=== PATIENT | female | born 1995 | race Caucasian/White ===

== ENCOUNTER 2022-08-07 08:53 | Outpatient (CLI) | payer OTHER, SELFPAY ==
--- NOTE | 2022-08-07 08:15 | CRLHL7_ITS ---
For Patients: As a result of the Cures Act, medical imaging exams and procedure reports are released immediately into your electronic medical record. You may view this report before your referring provider. If you have questions, please contact your health care provider. INDICATION: First trimester scan, establish dates. COMPARISON: None. TECHNIQUE: Real-time varela-scale imaging of the pelvis was performed. FINDINGS: Sonographic imaging demonstrates a single living intrauterine gestation. The embryo demonstrates a regular cardiac rate measuring 179 beats per minute. The embryo`s crown-rump length measurement of 2.1 cm corresponds to a gestational age of 8 weeks 5 days with a sonographic due date of 03/14/2023. There is a normal-appearing yolk sac. There are no gross abnormalities noted within the embryo at this early state of development. The gestational sac has a normal appearance. There is a 3.9 x 0.5 x 1.5 cm perigestational hemorrhage. The amount of fluid within the sac appears appropriate for gestational age. The cervix is closed. The myometrium appears normal. The ovaries are of normal size. There are no suspicious fluid collections noted in the cul-de-sac. IMPRESSION: Single living intrauterine with sonographic gestational age 8 weeks 5 days and sonographic due date 03/14/2023. Subchorionic hemorrhage measuring 3.9 x 0.5 x 1.5 cm. Dictated by Tex Mathias MD @ 08/07/2022 12:51:17 PM (Electronically Signed)
== END 2022-08-07 08:54 | disposition home or self-care (01) ==
LOC: US 08:54
PROVIDERS: Visit Provider Registered Nurse
DX: Z34.91 Encounter for supervision of normal pregnancy, unspecified, first trimester (principal); O20.9 Hemorrhage in early pregnancy, unspecified; Z3A.08 8 weeks gestation of pregnancy
CPT/HCPCS: 76817

== ENCOUNTER 2022-08-07 10:31 | Outpatient (CLI) | payer OTHER, SELFPAY ==
--- OUTSIDE RECORDS SUMMARY | 2022-08-07 10:36 | XMS_ITS | Encounter Summary ---
:1995 Author Organization [facility] Address [address] [place] [address] Care Team Providers Name Role Phone Unassigned, Pcp Primary Care Provider Unavailable Encounter Details Date Type Department Care Team Description 09/15/2021 Admin Visit Department of Family Wang Eng P.A.-C. Medicine, [facility], [address] [place] [address] [place] [address] [phone] Social History Tobacco Use Types Packs/Day Years Used Date Smoking Tobacco: Never Smokeless Tobacco: Never Alcohol Use Standard Drinks/Week Comments No 0 (1 standard drink = 0.6 oz pure alcoho l) Sex Assigned at Date Recorded Female 07/07/2018 9:07 AM CDT documented as of this encounter Plan of Treatment Not on filedocumented as of this encounter Visit Diagnoses Not on filedocumented in this encounter Additional Health Concerns Infection Onset Date Last Indicated Resolved Time COVID19 Pending 09/15/2021 09/15/2021 09/16/2021 5:27 PM 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
--- OUTSIDE RECORDS SUMMARY | 2022-08-07 10:36 | XMS_ITS | Encounter Summary ---
:1995 Author Organization [facility] Address [address] [place] [address] Care Team Providers Name Role Phone Unassigned, Pcp Primary Care Provider Unavailable Reason for Visit Reason Onset Date Comments Outpatient COVID-19 Testing 07/12/2020 Encounter Details Date Type Department Care Team Description 07/12/2020 External Outreach Department of [facility] Oanh Moreno Infection Upper Medicine, [place] T, P.A.-CDennise Respiratory (Primary Clinic, in [place], [address] [place] [address] Dx) [place], [place] [address] [address] [place], [place] [phone] (Work) [phone] Social History Tobacco Use Types Packs/Day Years Used Date Smoking Tobacco: Never Smokeless Tobacco: Never Alcohol Use Standard Drinks/Week Comments No 0 (1 standard drink = 0.6 oz pure alcoho l) Sex Assigned at Date Recorded Female 07/07/2018 9:07 AM CDT documented as of this encounter Progress Notes Caitlyn Diane, L.P.N. - 07/12/2020 10:10 AM CDT Encounter created for the drive-through COVID-19 testing. documented in this encounter Plan of Treatment Not on filedocumented as of this encounter Procedures Procedure Name Priority Date/Time Associated Diagnosis Comme nts SARS CORONAVIRUS-2 Routine 07/12/2020 3:11 PM Infection Upper Results for this RNA, V CDT Respiratory procedure are i n the results section. documented in this encounter Results SARS Coronavirus-2 RNA, V Symptomatic (07/12/2020 3:11 PM CDT) [facility] Method Time Signature SARS-CoV-2 Swab, 07/12/2020 ECLR Specimen Nasopharynx 10:26 PM Source CDT SARS CoV-2 Undetected Undetected 07/12/2020 ECLR RNA, TMA 10:26 PM CDT Comment: SARS-CoV-2 RNA absent. This result does not rule out COVID-19 in the patient, as the sensitivity of the test depends o n the timing of the specimen collection and the quality of the specim en. Result should be correlated with patient's history and clinical presentat ion. ----ADDITIONAL INFORMATION---- This test is performed using the Aptima SARS-CoV-2 assay ([employer] which has received Emergency Use Authori zation (EUA) by the U.S. Food and Drug Administration. Fact sheets for this Emergency Use Autho rization (EUA) assay can be found at the following links: For Healthcare Providers: https://www.fd a.gov/media/538860/download For Patients: https://www.fda.gov/media/ 501512/download Specimen Anatomical Collection Method Collection Time Receive d Time (Source) Location / / Volume Laterality Varies 07/12/2020 3:11 PM 0 3:11 (Nasopharynx) CDT PM CDT Lc Moreno P.A.-C. LAB MICROBIOLOGY - GENERAL O JENNIFER Performing Organization Address City/State/ZIP Code Phon e Number [facility]- [address] [place] [phone] [facility] [place] [address] System in [address] documented in this encounter Visit Diagnoses Diagnosis Infection Upper Respiratory - Primary documented in this encounter Additional Health Concerns Infection Onset Date Last Indicated Resolved Time COVID19 Pending 07/12/2020 07/12/2020 07/12/2020 10:28 PM CDT documented as of this encounter Care Teams Nutrition Services Assistant Relationship Specialty Start Date End Date Unassigned, Pcp PCP - General Family Medicine 02/24/18 documented as of this encounter
--- OUTSIDE RECORDS SUMMARY | 2022-08-07 10:36 | XMS_ITS | Encounter Summary ---
:1995 Author Organization [facility] Address [address] [place] [address] Care Team Providers Name Role Phone Unassigned, Pcp Primary Care Provider Unavailable Reason for Visit Reason Onset Date Comments Testing For Upper Respiratory Virus Symptoms 10/01/2021 Encounter Details Date Type Department Care Team Description 10/01/2021 External Outreach Department of [facility] Oanh Moreno Contact With And Medicine, Nerinx Alma Zambrano (Suspected) Exposure Clinic, in [address] To COVID-19 (Primary [place], [place] Dx) [address] [facility] [address] [place], [place] [phone] [phone] (Work) [phone] Social History Tobacco Use Types Packs/Day Years Used Date Smoking Tobacco: Never Smokeless Tobacco: Never Alcohol Use Standard Drinks/Week Comments No 0 (1 standard drink = 0.6 oz pure alcoho l) Sex Assigned at Date Recorded Female 07/07/2018 9:07 AM CDT documented as of this encounter Progress Notes Xavier Pop RDenniseN. - 10/01/2021 10:47 AM CST Encounter created for symptomatic infectious disease screening with possible COVID, Influenza, RSV, and/or Group A Strep testing. RONMENTAL MARKETING REPRESENTATIVE documented in this encounter Plan of Treatment Not on filedocumented as of this encounter Procedures Procedure Name Priority Date/Time Associated Diagnosis Comme nts SARS CORONAVIRUS-2 Routine 10/02/2021 12:56 PM Contact With An d Results for this RNA, V ENVIRONMENTAL MARKETING REPRESENTATIVE (Suspected) Exposure procedu re are in To COVID-19 the results section. documented in this encounter Results SARS Coronavirus-2 RNA, V Symptomatic (10/02/2021 12:56 PM ENVIRONMENTAL MARKETING REPRESENTATIVE) [facility] Method Time Signature SARS-CoV-2 Swab, 10/03/2021 ECLR Specimen Nasopharynx 2:35 PM ENVIRONMENTAL MARKETING REPRESENTATIVE Source SARS CoV-2 Undetected Undetected 10/03/2021 ECLR RNA, TMA 2:35 PM ENVIRONMENTAL MARKETING REPRESENTATIVE Comment: SARS-CoV-2 RNA absent. This result does not rule out COVID-19 in the patient, as the sensitivity of the test depends o n the timing of the specimen collection and the quality of the specim en. Result should be correlated with patient's history and clinical presentat ion. ----ADDITIONAL INFORMATION---- This molecular amplification test was pe rformed using the Aptima SARS-CoV-2 assay ([employer] on the [employer] tem under emergency use authorization (EUA) by the U.S. Food and Drug Administ ration. Fact sheets for this EUA assay can be fo und at the following links: For Healthcare Providers: https://www.fd a.gov/media/087636/download For Patients: https://www.fda.gov/media/ 370445/download Specimen Anatomical Collection Method Collection Time Receive d Time (Source) Location / / Volume Laterality Varies 10/02/2021 12:56 10/02/2021 9:52 (Nasopharynx) PM ENVIRONMENTAL MARKETING REPRESENTATIVE PM ENVIRONMENTAL MARKETING REPRESENTATIVE Lc Moreno P.A.-C. LAB MICROBIOLOGY - GENERAL O RDENRIKEBLES Performing Organization Address City/State/ZIP Code Phon e Number [facility]- [address] [place] [address] [phone] [facility] [place] [address] System in [address] documented in this encounter Visit Diagnoses Diagnosis Contact With And (Suspected) Exposure To COVID-19 - Primary documented in this encounter Additional Health Concerns Infection Onset Date Last Indicated Resolved Time COVID19 Pending 10/01/2021 10/02/2021 10/03/2021 2:35 PM ENVIRONMENTAL MARKETING REPRESENTATIVE documented as of this encounter Care Teams Grain Sampler Relationship Specialty Start Date End Date Unassigned, Pcp PCP - General Family Medicine 02/24/18 documented as of this encounter
--- OUTSIDE RECORDS SUMMARY | 2022-08-07 10:36 | XMS_ITS | Encounter Summary ---
:1995 Author Organization [facility] Address [address] [place] [address] Care Team Providers Name Role Phone Unassigned, Pcp Primary Care Provider Unavailable Encounter Details Date Type Department Care Team Description 10/02/2021 Admin Visit Department of Family Lc Moreno, Medicine, [facility] in [place], [facility] [address] [facility] [address] [place] [address] [place] [address] [phone] Social History Tobacco Use Types Packs/Day Years [...] COVID19 Pending 10/01/2021 10/02/2021 10/03/2021 2:35 PM DENTURE CONTOUR WIRE SPECIALIST documented as of this encounter Care Teams Tooth Cutter Relationship Specialty Start Date End Date Unassigned, Pcp PCP - General Family Medicine 02/24/18 documented as of this encounter
--- OUTSIDE RECORDS SUMMARY | 2022-08-07 10:36 | XMS_ITS | Encounter Summary ---
:1995 Author Organization [facility] Address [address] [place] [address] Care Team Providers Name Role Phone Unassigned, Pcp Primary Care Provider Unavailable Reason for Visit Reason Onset Date Comments Outpatient COVID-19 Testing 07/12/2020 Encounter Details Date Type Department Care Team Description 07/12/2020 External Outreach Department of [facility] Oanh Moreno Infection Upper Medicine, [place] T, P.A.-CDennise Respiratory (Primary Clinic, in [place], [address] [place] [address] Dx) [place], [place] [address] [address] [place], [place] [phone] (Work) [phone] Social History Tobacco Use Types Packs/Day Years Used Date Smoking Tobacco: Never Smokeless Tobacco: Never Alcohol Use Standard Drinks/Week Comments No 0 (1 standard drink = 0.6 oz pure alcoho l) Sex Assigned at Date Recorded Female 07/07/2018 9:07 AM CDT documented as of this encounter Progress Notes Cristina Adler, L.P.N. - 07/12/2020 10:01 AM CDT Encounter created for the drive-through COVID-19 testing. documented in this encounter Plan of Treatment Not on filedocumented as of this encounter Visit Diagnoses Diagnosis Infection Upper Respiratory - Primary documented in this encounter Additional Health Concerns Infection Onset Date Last Indicated Resolved Time COVID19 Pending 07/12/2020 07/12/2020 07/12/2020 10:28 PM CDT documented as of this encounter Care Teams Gang Investigator Relationship Specialty Start Date End Date Unassigned, Pcp PCP - General Family Medicine 02/24/18 documented as of this encounter
--- OUTSIDE RECORDS SUMMARY | 2022-08-07 10:36 | XMS_ITS | Encounter Summary ---
:1995 Author Organization [facility] Address [address] [place] [address] Care Team Providers Name Role Phone Unassigned, Pcp Primary Care Provider Unavailable Encounter Details Date Type Department Care Team Description 01/03/2021 Orders Only [facility] Sa marisa Tucker M.D. [address] [place], [place] [phone] (Wo rk) Social History Tobacco Use Types Packs/Day Years [...] Diagnoses Not on filedocumented in this encounter Care Teams Bondactor Machine Operator Relationship Specialty Start Date End Date Unassigned, Pcp PCP - General Family Medicine 02/24/18 documented as of this encounter
--- OUTSIDE RECORDS SUMMARY | 2022-08-07 10:36 | XMS_ITS | Clinical Summary ---
:1995 Author Organization [facility] Address [address] [place] [address] Care Team Providers Name Role Phone Unassigned, Pcp Primary Care Provider Unavailable Source Comments Patient records contain information from all sites at [facility]. For routine questions regarding patient records, call [phone] during business hours, M-F 8:00 AM - 5:00 PM Central Time. Record requests for emergency care only can be directed to [phone] at any time.[facility] Allergies Active Allergy Reactions Severity Noted Date Comments Banana GI intolerance Medium 02/16/2018 Raw banana. S evere stomach pain Medications Medication Sig Dispensed Refills Start Date End Date Status Take 1 tablet by 0 Act clifton tjwbqha-jaywffku-sbgz mouth daily. fumarate-FA (for_VINATE M) 27-1 mg per tablet levonorgestrel-ethinyl Take 1 tablet by 84 tablet 4 08/26/2018 Active estrad (NORDETTE) mouth daily. 0.15-0.03 mg per tablet azithromycin Take 2 tabs (500 6 tablet 0 06/26/2019 Active (ZITHROMAX) 250 mg mg) by mouth tablet today, then 1 tab (250 mg) daily for 4 days. Active Problems Patient Care Coordination Note Formatting of this note might be differe nt from the original. Kang breastfeed Problem Noted Date Pain Epigastric Resolved Problems Problem Noted Date Resolved Date 41 Weeks Gestation 07/14/2018 07/21/2018 Body Mass Index 40.0 To 44.9 Adult 06/30/201808/26 Elevated Blood Pressure Without Hypertension 06/24/2018 07/13/2018 Encounter For Supervision Of Normal First 12/25/19 18 07/21/2018 Unspecified Trimester Immunizations Name Administration Dates Next Due 4vHPV (discontinued) 05/27/2011 DTaP (Infanrix, [employer]) 01/31/1999, 06/30/1996, 07/01/1994 , 04/29/1994, 03/03/1994 HPV, Unspecified 05/27/2011 HepB, Unspecified 11/10/1999, 03/04/1999, 01/31/1999 Hib, Unspecified 07/01/1994, 04/29/1994, 03/03/1994 MMR 07/18/2018 (Deferred: Patient Refused), 01/31/1999, 04/26/1995 Polio, Unspecified 01/31/1999, 06/30/1996, 04/29/1994, 02/03 Tdap 04/15/2018, 06/11/2006 Family History Medical History Relation Name Comments Cancer Maternal Grandfather Heart attack Maternal Grandfather Hypertension Maternal Grandfather Cervical cancer Mother Relation Name Status Comments Maternal Grandfather Alive Mother Alive Social History Tobacco Use Types Packs/Day Years Used Date Smoking Tobacco: Never Smokeless Tobacco: Never Alcohol Use Standard Drinks/Week Comments No 0 (1 standard drink = 0.6 oz pure alcoho l) Sex Assigned at Date Recorded Female 07/07/2018 9:07 AM CDT Last Filed Vital Signs Vital Sign Reading Time Taken Comments Blood Pressure 126/81 06/26/2019 2:31 PM CDT Pulse 77 06/26/2019 2:31 PM CDT Temperature 37.4 ??C (99.3 ??F) 06/26/2019 2:31 PM CDT Respiratory Rate 16 07/18/2018 9:49 AM CDT Oxygen Saturation 98% 06/26/2019 2:31 PM CDT Inhaled Oxygen Concentration - - Weight 95 kg (209 lb 7 oz) 06/26/2019 2:31 PM CDT Height 163 cm (5' 4.17) 11/13/2016 11:23 AM 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 Body Mass Index 35.76 11/13/2016 11:23 AM 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 Plan of Treatment Health Maintenance Due Date Last Done Comments Hepatitis C Screening 1995 COVID-19 Vaccine (#1) 06/26/1994 Cervical Cancer Screening 11/26/2020 11/26/2017 Depression Screening 10/04/2021 (Annual PHQ-2) Influenza Vaccine (#1) 2022 DTaP,Tdap,and Td Vaccines 04/15/2028 04/15/2018, 06/11/2006 , (9 - Td or Tdap) 05/19/2006, Additional history exists Hepatitis B Vaccines Completed 11/10/1999, 03/04/1999, 01/31/1999 HIV Screening Completed 11/26/2017 Pneumococcal vaccine (0-64 Aged Out No lo nger eligible years) based on patient 's age to complete this topic Insurance Payer Benefit Plan Subscriber ID Effective Phone Address Typ e / Group Dates [facility] [id number] 2017-Prese [phone] [id number] [place] [address] [facility] [id number] 2020-Prese [phone] [id number] [place] [address] Advance Directives For more information, please contact: [phone] Latest Code Status on File Code Status Date Activated Date Inactivated Comments Full Code 07/15/2018 8:48 PM 07/18/2018 12:00 PM Question Answer Comments Full Code: Discussed Code Status History Code Status Date Activated Date Inactivated Comments Full Code 07/15/2018 5:59 PM 07/15/2018 8:48 PM Question Answer Comments Full Code: Discussed Full Code 07/14/2018 7:50 AM 07/15/2018 5:59 PM Question Answer Comments Full Code: Discussed Care Teams Strategic Planning Consultant Relationship Specialty Start Date End Date Unassigned, Pcp PCP - General Family Medicine 02/24/18
--- OUTSIDE RECORDS SUMMARY | 2022-08-07 10:37 | XMS_ITS | Encounter Summary ---
:1995 Author Organization [facility] Address [address] [place] [address] Care Team Providers Name Role Phone Unassigned, Pcp Primary Care Provider Unavailable Encounter Details Date Type Department Care Team Description 05/04/2018 Clinical Communication Department of Devin Hall, Obstetrics and [facility] Gynecology in [address] [address] Social History Tobacco Use Types Packs/Day Years [...] on filedocumented in this encounter Care Teams Propulsion Machinery Service Engineer Relationship Specialty Start Date End Date Unassigned, Pcp PCP - General Family Medicine 02/24/18 documented as of this encounter
--- OUTSIDE RECORDS SUMMARY | 2022-08-07 10:37 | XMS_ITS | Encounter Summary ---
:1995 Author Organization [facility] Address [address] [place] [address] Care Team Providers Name Role Phone Unassigned, Pcp Primary Care Provider Unavailable Reason for Visit Reason Comments Routine Visit Outpatient (Routine) - Closed Specialty Diagnoses / Procedures Referred By Contact Refer red To Contact Obstetrics and Jennifer Sargent, MARIA LUISA, [facility] C.N.P. [address] [place] [address] Referral ID Status Reason Start Date Expiration Date Visits Requ ested Visits Authorized [id number] Closed 05/13/2018 05/13/2019 1 1 Encounter Details Date Type Department Care Team Description 07/01/2018 Routine Department of Jennifer Sargent Examinat ion Obstetrics and DETASSELING CREW SUPERVISOR, C.N.P. Normal First Gynecology in [facility] [address] [place], [place] Trimester (Primary [address] [address] Dx) [place], [place] [phone] [phone] (Work) [phone] Social History Tobacco Use Types Packs/Day Years Used Date Smoking Tobacco: Never Smokeless Tobacco: Never Alcohol Use Standard Drinks/Week Comments No 0 (1 standard drink = 0.6 oz pure alcoho l) Sex Assigned at Date Recorded Female 07/07/2018 9:07 AM CDT documented as of this encounter Last Filed Vital Signs Vital Sign Reading Time Taken Comments Blood Pressure 130/80 07/01/2018 9:02 AM CDT Pulse - - Temperature - - Respiratory Rate - - Oxygen Saturation - - Inhaled Oxygen Concentration - - Weight 112 kg (247 lb 2.2 oz) 07/01/2018 9:02 AM CDT Height - - Body Mass Index 42.19 11/13/2016 11:23 AM APPLICATION SUPPORT CONSULTANT documented in this encounter Progress Notes Jennifer Sargent APRN, C.N.P. - 07/01/2018 9:15 AM CDT Patient is feeling well. No concerns today. movement continues to be adequate. We briefly discussed induction, nothing is scheduled yet. documented in this encounter Plan of Treatment Not on filedocumented as of this encounter Visit Diagnoses Diagnosis Examination Normal First Pregna ncy Third Trimester (HCC) - Primary documented in this encounter Care Teams Registry Nurse Relationship Specialty Start Date End Date Unassigned, Pcp PCP - General Family Medicine 02/24/18 documented as of this encounter
--- OUTSIDE RECORDS SUMMARY | 2022-08-07 10:37 | XMS_ITS | Encounter Summary ---
:1995 Author Organization [facility] Address [address] [place] [address] Care Team Providers Name Role Phone Unassigned, Pcp Primary Care Provider Unavailable Encounter Details Date Type Department Care Team Description 06/26/2019 Hospital Encounter Department of Radiology Herbert Carranza, Cough in [place], [place] P.A.-C. [address] [facility] [address] [place] [address] [place], [place] [phone] (Wo rk) Social History Tobacco Use Types Packs/Day Years Used Date Smoking Tobacco: Never Smokeless Tobacco: Never Alcohol Use Standard Drinks/Week Comments No 0 (1 standard drink = 0.6 oz pure alcoho l) Sex Assigned at Date Recorded Female 07/07/2018 9:07 AM CDT documented as of this encounter Medications at Time of Discharge Medication Sig Dispensed Refills Start Date End Date azithromycin (ZITHROMAX) Take 2 tabs (500 6 tablet 0 06/26 250 mg tablet mg) by mouth today, then 1 tab (250 mg) daily for 4 days. levonorgestrel-ethinyl Take 1 tablet by 84 tablet 4 018 estrad (NORDETTE) mouth daily. 0.15-0.03 mg per tablet Take 1 tablet by 0 egkiclu-prdvimee-lbek mouth daily. fumarate-FA (for_VINATE M) 27-1 mg per tablet benzonatate (TESSALON Take 1 capsule (100 30 capsule 0 06/2607/06/2019 PERLES) 100 mg capsule mg total) by mouth 3 (three) times a day as needed for cough for up to 10 days. documented as of this encounter Plan of Treatment Not on filedocumented as of this encounter Procedures Procedure Name Priority Date/Time Associated Comments Diagnosis DX CHEST AP OR PA RAD - Routine 06/26/2019 3:08 Cough Result s for this AND LATERAL 2 (most inpatients PM CDT procedure are in VIEWS and all the results outpatients) section. documented in this encounter Results DX Chest AP or PA and Lateral 2 Views (06/26/2019 3:08 PM CDT) Anatomical Region Laterality Modality Chest, Thoracic RST LOS, Thoracic ARZ LOS, Thoracic N/A Digital Radiography FLA LOS Specimen (Source) Anatomical Collection Method Collection Time Re ceived Time Location / / Volume Laterality 06/26/2019 3:53 PM CDT Impressions 06/26/2019 3:54 PM CDT No focal pneumonia. Narrative 06/26/2019 3:54 PM CDT EXAM: DX CHEST AP OR PA AND LATERAL 2 VIEWS COMPARISON: 01/25/2021 FINDINGS: Cardiomediastinal silhouette a nd pulmonary vasculature are within normal limits. No acute consolidation, p leural effusion, or pneumothorax. No acute abnormality in the bones or upper abdomen. Procedure Note Jameson Morales M.D. - 06/26/2019Formattin g of this note might be different from the original. EXAM: DX CHEST AP OR PA AND LATERAL 2 EWS COMPARISON: 01/25/2021 FINDINGS: Cardiomediastinal silhouette a nd pulmonary vasculature are within normal limits. No acute consolidation, p leural effusion, or pneumothorax. No acute abnormality in the bones or upper abdomen. IMPRESSION: No focal pneumonia. [facility] documented in this encounter Visit Diagnoses Diagnosis Cough Unspecified Type documented in this encounter Care Teams Claims Adjustor Relationship Specialty Start Date End Date Unassigned, Pcp PCP - General Family Medicine 02/24/18 documented as of this encounter
--- OUTSIDE RECORDS SUMMARY | 2022-08-07 10:37 | XMS_ITS | Encounter Summary ---
:1995 Author Organization [facility] Address [address] [place] [address] Care Team Providers Name Role Phone Unassigned, Pcp Primary Care Provider Unavailable Reason for Visit Reason Comments Scheduled Induction Auth/Cert Specialty Diagnoses / Procedures Referred By Contact Refer red To Contact Diagnoses 41 Weeks Gestation (HCC) Procedures NA Referral ID Status Reason Start Date Expiration Date Visits Requ ested Visits Authorized [id number] 1 1 Encounter Details Date Type Department Care Team Description 07/15/2018 Surgery [facility] MAIN OR Jonas Buck M.D. SECTION [address] [facility] [address], [place] [phone] [place] [address] (Wo rk) Social History Tobacco Use Types Packs/Day Years Used Date Smoking Tobacco: Never Smokeless Tobacco: Never Alcohol Use Standard Drinks/Week Comments No 0 (1 standard drink = 0.6 oz pure alcoho l) Sex Assigned at Date Recorded Female 07/07/2018 9:07 AM CDT documented as of this encounter Last Filed Vital Signs Vital Sign Reading Time Taken Comments Blood Pressure 128/79 07/15/2018 6:00 PM CDT Pulse 110 07/15/2018 6:03 PM CDT Temperature 37.4 ??C (99.3 ??F) 07/15/2018 2:52 PM CDT Respiratory Rate 16 07/15/2018 2:52 PM CDT Oxygen Saturation 99% 07/15/2018 6:03 PM CDT Inhaled Oxygen Concentration - - Weight - - Height - - Body Mass Index - - documented in this encounter Discharge Summaries Jonas Buck M.D. - 07/18/2018 7:03 AM CDT DISCHARGE SUMMARY BRIEF OVERVIEW Discharge Provider: Damaris Houston APRN, CNM Primary Care Provider at Discharge: Primary Care Providers: Unassigned, Pcp (General) No address on file Primary Care Provider Phone Number: None Primary Care Provider Fax Number: None Other Providers: None Admission Date: 07/14/2018 Discharge Date: 07/18/2018 PRINCIPAL DIAGNOSIS 41 Weeks Gestation Failure to progress with deep pelvic transverse arrest. SECONDARY DIAGNOSES Principal Problem: 41 Weeks Gestation Resolved Problems: * No resolved hospital problems. * Operative Procedures: Scheduled (Daniel), Completed (Comp) or Canceled (Can) Case IDs Date Procedure Surgeon Location Status [id number] 07/15/18 SECTION Jonas Buck M.D. [facility] OR Jennifer Review the Delivery Report for details. GA: 41w1d GP: Risk Factors: Other Obstetric Procedures this : None Labor Complications: Failure to Progress in First Stage Delivery Details: 07/15/2018 6:40 PM with Apgars of 9 and 9 . Delivery Type: , Low Transverse Lacerations: Yocasta Lewis [[id number]] Delivery (Maternal) [place] Weight: 3.67 kg Feeding Method: breast Rh Immune Globulin Given: not applicable Rubella Vaccine Given: yes TEST RESULTS PENDING AT DISCHARGE DETAILS OF HOSPITAL STAY REASON FOR ADMISSION 41 weeks gestation/postdates HOSPITAL COURSE No notes on file Primary low segment transverse delivery CONDITION AT DISCHARGE stable DISCHARGE DISPOSITION Home/Self Care OUTPATIENT FOLLOW-UP Future Appointments Date Time Provider Department Center 07/25/2018 1:00 PM OBG RN NURSE 01 [facility] 08/26/2018 10:00 AM Jennifer Sargent APRN, C.N.P. [facility] Problem List * (Principal)41 Weeks Gestation Encounter For Supervision Of Normal First Unspecified Trimester Pain Epigastric Complication Obesity Body Mass Index 30 To 40 Initial visit bmi 38 Discharge instructions were provided to the patient and caregivers. Return to clinic in 1 week for postop follow-up and incision check. Jonas Buck M.D. documented in this encounter Discharge Instructions Discharge InstructionsPortia Mullins R.N. - 07/18/2018 8:46 AM CDT Discharge education completed. Education materials provided and reviewed: ??? Feeding your baby the first year ([id number]) ??? Caring for yourself after Giving ([id number]) ??? Caring for your ([id number]) ??? Keeping your safe ([id number]) ??? Beyond classes/ services ([id number]) ??? Shaken Baby Syndrome ??? Patient online services ([id number]) ??? Period of purple crying video ??? Oximetry screening/hearing screening/ screening ([id number]) ??? Carseat safety ([id number]) ??? Safe crib ([id number]) ??? Community resources/phone numbers ([id number]) ??? Circumcision pamphlet if applicable ([id number]) ??? Baby's Second Night ([id number]) ??? Managing your pain ([id number]) documented in this encounter Medications at Time of Discharge Medication Sig Dispensed Refills Start Date End Date Take 1 tablet by 0 ztlkoyo-uwmpmolr-djfu mouth daily. fumarate-FA (for_VINATE M) 27-1 mg per tablet ibuprofen (ADVIL,MOTRIN) Take 1 tablet (600 30 tablet 1 07/26/2018 600 mg tablet mg total) by mouth every 6 (six) hours for 30 doses. MMR: measles, mumps and Inject 0.5 mL under 0.5 mL 0 07/18/2018 rubella, PF, the skin once for 1 1,000-12,500 TCID50/0.5 dose. mL vaccine raNITIdine (ZANTAC) 150 Take 1 tablet (150 180 tablet 3 10/201705/04/2019 mg tablet mg total) by mouth 2 (two) times a day. documented as of this encounter Progress Notes Jonas Buck M.D. - 07/18/2018 6:59 AM CDT SUBJECTIVE Brie Lewis is currently 3 Days Post-Op for section. She was admitted to the hospital for induction of labor for: post dates.. Events over the past 24 hours - Pain is well controlled - Tolerating PO: yes - Flatus: yes - Nausea: no - Voiding: yes OBJECTIVE VITAL SIGNS Vitals: 07/17/18 0330 07/17/18 0910 07/17/18 0915 07/17/18 2343 BP: 118/76 118/76 (!) 111/53 Temp: 37 ??C 36.9 ??C 37.1 ??C Pulse: Heart Rate: 98 98 96 Resp: 20 20 SpO2: Temp (24hrs), Av ??C, Min:36.9 ??C, Max:37.1 ??C Weight change: I/O 07/16 0701 - 07/17 0700 07/17 07 - 07/18 0700 Urine 1150 Total Output 1150 Net -1150 Unmeasured Urine Occurrence 2 x PHYSICAL EXAM Constinutional: no complaints Respiratory: normal expansion, clear to auscultation Cardiovascular: regular rate and rhythm Abdomen: soft, nontender Fundus: 2 cm below umbilicus Incision: dressing clean, dry, intact Occurences STATUS sex: Information for the patient's : Yocasta Lewis [[id number]] female Infant name: Information for the patient's : Yocasta Lewis [[id number]] Yocasta Lewis room: Information for the patient's : Yocasta Lewis [[id number]] NRY 3310/3310-A DIAGNOSTICS Lab results last 24 hours: Recent Results (from the past 24 hour(s)) CBC with Differential, Blood Collection Time: 07/17/18 8:18 AM Result Value Hemoglobin 8.3 (L) Hematocrit 25.4 (L) Erythrocytes 2.71 (L) MCV 93.7 RBC Distrib Width 13.6 Platelet Count 213 Leukocytes 11.7 (H) Neutrophils 9.18 (H) Lymphocytes 1.61 Monocytes 0.82 (H) Eosinophils 0.03 Basophils 0.03 No results found for this visit on 07/14/18 (from the past 72 hour(s)). Blood Type: Lab Results Component Value Date ABO A 07/14/2018 RHTYPE POS 07/14/2018 Antibody Screen: Lab Results Component Value Date ABSCREEN NEG 07/14/2018 RhoGAM: given not applicable ASSESSMENT / PLAN Condition: doing well without problems Discharge home today. Patient education done. Return to office in 1 week for postop/incision check. Problem List * (Principal)41 Weeks Gestation Encounter For Supervision Of Normal First Unspecified Trimester Pain Epigastric Complication Obesity Body Mass Index 30 To 40 Initial visit bmi 38 Jonas Buck M.D. Jonas Buck M.D. - 07/17/2018 7:56 AM CDT SUBJECTIVE Brie Lewis is currently 2 Days Post-Op for section. She was admitted to the hospital for induction of labor for: post dates/41+weeks. Events over the past 24 hours - Pain is well controlled - Tolerating PO: yes - Flatus: ?possible - Nausea: no - Vomiting: no OBJECTIVE VITAL SIGNS Vitals: 07/16/18 1725 07/16/18 2005 07/16/18 2228 07/17/18 0330 BP: 130/84 126/75 Temp: 37 ??C 37.4 ??C 37 ??C 37 ??C Pulse: Heart Rate: 98 107 Resp: 16 SpO2: Temp (24hrs), Av.1 ??C, Min:37 ??C, Max:37.4 ??C Weight change: I/O 07/15 701 - 07/16 0707/16 - 07/17 0707/17 - 07/18 07 P.O. 90 Maintenance IV 1500 Continuous Medications 200 Total Intake 1790 Urine 900 1150 Blood 1539 Total Output 2439 1150 Net -649 -1150 PHYSICAL EXAM Constinutional: no complaints Respiratory: normal expansion, clear to auscultation Cardiovascular: regular rate and rhythm Abdomen: soft, nontender and Bowel sounds present x4 quadrants Incision: dressing clean, dry, intact Extremities: 1+ edema Occurences STATUS Infant sex: Information for the patient's : Yocasta Lewis [[id number]] female Infant name: Information for the patient's : Yocasta Lewis [[id number]] Yocasta Lewis Infant room: Information for the patient's : Yocasta Lewis [[id number]] NRY 3310/3310-A DIAGNOSTICS Lab results last 24 hours: No results found for this or any previous visit (from the past 24 hour(s)). No results found for this visit on 07/14/18 (from the past 72 hour(s)). Blood Type: Lab Results Component Value Date ABO A 07/14/2018 RHTYPE POS 07/14/2018 Antibody Screen: Lab Results Component Value Date ABSCREEN NEG 07/14/2018 RhoGAM: given not applicable ASSESSMENT / PLAN Condition: doing well without problems, advance diet as tolerated, increase ambulation, continue post operative/ care. Continue with /postoperative care. Recheck CBC today-- Problem List * (Principal)41 Weeks Gestation Encounter For Supervision Of Normal First Unspecified Trimester Pain Epigastric Complication Obesity Body Mass Index 30 To 40 Initial visit bmi 38 Jonas Buck M.D. Eddie Rodriguez APRN, ANGELIQUE, D.N.P. - 07/16/2018 1:05 PM CDT Post Anesthesia Assessment Note Patient: Brie Lewis General Info Post-procedure day: 1 Follow-up type: OB OB Assessment day: 1 Vital signs: vitals reviewed Ambulation: has ambulated Urinary retention: No Patient received a neuraxial anesthetic: Yes OB Complications New or progressive sensory deficit since admission: No New or progressing motor deficit since admission: No Headache: No Clinical signs or symptoms of neuraxial infection: none apparent Clinical signs or symptoms of neuraxial hematoma: none apparent Clinical signs or symptoms of DIRECTOR OF STRATEGIC COMMUNICATIONS toxicity (during this admission): none Does patient display any postoperative anesthesia complication warranting further documentation: No Jonas Buck M.D. - 07/16/2018 8:16 AM CDT SUBJECTIVE Brie Lewis is currently 1 Day Post-Op for section. She was admitted to the hospital for induction of labor for: post dates/41 weeks.. Events over the past 24 hours - Pain is well controlled - Tolerating PO: yes - Flatus: yes - Vomiting: no OBJECTIVE VITAL SIGNS Vitals: 07/16/18 0000 07/16/18 0230 07/16/18 0454 07/16/18 0500 BP: 119/78 108/67 118/66 Temp: 37.2 ??C 37.1 ??C 37.3 ??C Pulse: Heart Rate: 88 81 87 Resp: 16 16 16 SpO2: Temp (24hrs), Av.3 ??C, Min:36.7 ??C, Max:37.8 ??C Weight change: I/O 07/14 701 - 07/15 0700 07/15 07 - 07/16 0700 07/16 07 - 07/17 0700 P.O. 90 Maintenance IV 1500 Continuous Medications 200 Total Intake 1790 Urine 900 Blood 1539 Total Output 2439 Net -649 PHYSICAL EXAM Constinutional: no complaints Respiratory: normal expansion, clear to auscultation Cardiovascular: regular rate and rhythm Abdomen: soft, nontender Fundus: 2 cm below umbilicus Incision: dressing clean, dry, intact Occurences INFANT STATUS sex: Information for the patient's : Yocasta Lewis [[id number]] female name: Information for the patient's : Yocasta Lewis [[id number]] Yocasta Lewis room: Information for the patient's : Yocasta Lewis [[id number]] NRY 3310/3310-A DIAGNOSTICS Lab results last 24 hours: Recent Results (from the past 24 hour(s)) CBC with Differential Collection Time: 07/16/18 7:04 AM Result Value Hemoglobin 9.0 (L) Hematocrit 27.9 (L) Erythrocytes 3.05 (L) MCV 91.5 RBC Distrib Width 13.2 Platelet Count 232 Leukocytes 13.7 (H) Neutrophils 10.60 (H) Lymphocytes 1.90 Monocytes 1.17 (H) Eosinophils 0.02 (L) Basophils 0.03 No results found for this visit on 07/14/18 (from the past 72 hour(s)). Blood Type: Lab Results Component Value Date ABO A 07/14/2018 RHTYPE POS 07/14/2018 Antibody Screen: Lab Results Component Value Date ABSCREEN NEG 07/14/2018 RhoGAM: given not applicable ASSESSMENT / PLAN Condition: doing well without problems Routine care Full liquids then diet as tolerated. Ambulate q.i.d.. Labs noted will recheck a.m. postop day 2./July 17, 2018. Continue postoperative care. Problem List * (Principal)41 Weeks Gestation Encounter For Supervision Of Normal First Unspecified Trimester Pain Epigastric Complication Obesity Body Mass Index 30 To 40 Initial visit bmi 38 Jonas Buck M.D. Jonas Buck M.D. - 07/15/2018 5:23 PM CDT Labor progress note: Patient continues with active contraction pattern every 3-4 minutes of good intensity. Comfortable with epidural. heart rate--category 1, good variability, accelerations present. Cervix remains 7 cm dilation, 90% effaced with developing edema to the cervix, - 1 station RO T Thus no cervical change and failure to progress with a deep pelvic arrest. Risks options complications reviewed and at this point the patient prefers and desires to proceed with primary delivery. The consent form is included in the patient's medical record. She has been reviewed the procedure aswell as risk of bleeding or infection as well as that of potential for injury to bladder bowel or ureter. T Jonas Buck M.D. - 07/15/2018 3:15 PM CDT Labor progress note: Patient with contractions every 3-4 minutes of moderate intensity. Comfortable with epidural. heart rate--category 1, good variability, accelerations present. Cervix 7 cm dilation, 90% effaced, -1 station, Impression and plan: Gradual labor progression with cervical dilation Continue with monitoring. Follow for labor progression. Jonas Buck M.D. - 07/15/2018 12:10 PM CDT Labor progress note: Patient with contractions every 3-4 minutes of moderate intensity. Improved comfort with epidural. heart rate--category 1 tracing, good variability, accelerations present. Cervix: 5 cm dilation, 90% effaced, -2 station. SROM with clear fluid Impression and plan, continue with Pitocin augmentation to coordinate contraction pattern. Monitor, follow for labor progression. Jonas Buck M.D. - 07/15/2018 6:50 AM CDT Labor progress note: Patient with contractions every 3-5 minutes of moderate intensity. Cervidil removed approximately 1 and 0.5 hr ago. heart rate--category 1, good variability, excels present, baseline 140s. Cervix--2.5 cm dilation, 70% effaced, -2 station, medium consistency. Balloon placed for cervical ripening effect and inflated with approximately 60 cc of saline. Plan: Augment with Pitocin according contraction pattern, follow for labor progression, monitor. Jonas Buck M.D. - 07/14/2018 6:34 PM CDT Labor progress note: S: Contractions every 4-6 minutes of mild intensity. No vaginal bleeding or leakage. O: heart rate--category 1, good variability, accelerations present. Baseline 140s. Impression and plan: Cervidil in place. Will continue with the cervical ripening effect. Continue with monitoring is noted. Jonas Buck M.D. - 07/14/2018 4:29 PM CDT Labor progress note: Please see admission H&P. Patient now with contractions every 3-4 minutes of 1+ intensity. She relates she has a 3/10. No vaginal bleeding or leakage. heart rate--category 1, good rybg-aa-bvce variability, baseline 140s, accelerations present. Cervix 1 cm dilation, 40% effaced, -2 station, cephalic, intact bag of water. Options reviewed and at this point the patient desires to proceed with the Cervidil for cervical ripening effects and follow for labor progression/cervical ripening effect./be documented in this encounter H&P Notes Damaris Houston APRN, CNM - 07/14/2018 7:52 AM CDT SUBJECTIVE REASON FOR ADMISSION Brie Lewis is a 22 y.o. with an Estimated Date of Delivery: 07/07/18. Gestational ageis 41w0d determined by LMP consistent with 8 week ultrasound. She is presenting for induction of labor for: late term at 41 weeks. Madhu at her side HISTORY OF PRESENT CONDITION OB History Para Term AB Living 1 SAB TAB Ectopic Molar Multiple Live Births # Outcome Date GA Lbr Alexis/2nd Weight Sex Delivery Anes PTL Lv 1 Current I have reviewed and updated the following: allergies, prior to admission medications, family history, medical history, social history, surgical history and problem list REVIEW OF SYSTEMS A comprehensive review of systems was negative. OBJECTIVE VITAL SIGNS Temperature: [36.3 ??C] 36.3 ??C Heart Rate: [89] 89 Resp Rate: [16] 16 Blood Pressure: (121)/(87) 121/87 PHYSICAL EXAM Respiratory: normal expansion, clear to auscultation Cardiovascular: regular rate and rhythm heart tones: Category I, Variability: moderate Contractions: occasional, random Membranes: intact Cervix: Evaluated by digital exam., Dilation: 1, Effacement: 40 %, Cervical consistency: firm and Cervix position: Posterior, cervix hugs finger DIAGNOSTICS I have reviewed the OB ultrasound(s) Blood Type: Lab Results Component Value Date ABO A 11/26/2017 RHTYPE POS 11/26/2017 Antibody Screen: Lab Results Component Value Date ABSCREEN NEG 11/26/2017 Prophylactic RhoGAM: not applicable Lab Results Component Value Date HGB 11.1 (L) 04/15/2018 HCT 33.1 (L) 04/15/2018 PLT 233 04/15/2018 [id number] 120 04/15/2018 HEPBSAG Nonreactive 11/26/2017 [id number] Negative 11/26/2017 GRPBSTREP Negative 06/10/2018 ASSESSMENT / PLAN Problem List * (Principal)41 Weeks Gestation Encounter For Supervision Of Normal First Unspecified Trimester Pain Epigastric Complication Obesity Body Mass Index 30 To 40 Initial visit bmi 38 Obesity class 3 (bmi >40) at term Admit to Labor and Delivery for routine intrapartum care; Consult Anesthesia cytotec per protocol Pitocin as needed Damaris Houston APRN, CNMRUBELLAIGG documented in this encounter Nursing Notes Joanie Aguilar R.N. - 07/17/2018 5:00 PM CDT Compromised Skin Integrity ??? Incisions, wounds, or drain sites healing without S/S of infection Progressing ??? Skin/Tissue integrity maintained or improved Progressing ??? Oral and Nasal mucous membranes remain intact Progressing DISCHARGE PLANNING ??? Patient discharge needs identified Progressing Incontinence and/or Moisture ??? Skin integrity is maintained or improved Progressing INFECTION - ADULT ??? Absence of infection during hospitalization Progressing KNOWLEDGE DEFICIT ??? Patient/family/caregiver demonstrates understanding of disease process, treatment plan, medications, and discharge instructions Progressing PAIN - ADULT ??? PT VERBALIZES/DEMONSTRATES ADEQUATE COMFORT LEVEL OR BASELINE Progressing POTENTIAL OR ACTUAL PRESSURE INJURY-ADULT ??? Manage sensory Perception deficits to maintain and/or improve skin integrity Progressing ??? Maintain optimal skin moisture to ensure or improve skin integrity Progressing ??? Achieve optimal activity and/or mobility to maintain or improve skin integrity Progressing ??? Nutrient intake appropriate for improving, restoring or maintaining skin integrity Progressing ??? Minimize friction and/or shear to maintain or improve skin integrity Progressing SAFETY ADULT ??? Maintain a safe environment Progressing SAFETY ADULT - RISK FOR FALL AND OR FALL INJURY ??? Patient remains free from fall/fall injury Progressing SKIN/TISSUE INTEGRITY ??? Skin/Tissue integrity maintained or improved Progressing ??? Oral and Nasal mucous membranes remain intact Progressing Goals: Adequate pain control Curran with Identify possible barriers to meeting goals/advancing plan of care: Fatigue Pain Stability of the patient: Moderately Stable - Low risk of patient condition declining or worsening End of Shift Summary: Patient continues to progress with goals. Continue current plan of care. Joanie Aguilar R.N. - 07/17/2018 9:42 AM CDT Provider updated on CBC. Hgb down to 8.3. Pt is asymptomatic. Provider is aware and will send patient home with iron. Nothing further needed at this time. Electronically signed by: Joanie Aguilar R.N. 07/17/18 9:43 AM Joanie Aguilar R.N. - 07/16/2018 5:07 PM CDT Goals: Adequate pain control Stable vital signs Curran with Identify possible barriers to meeting goals/advancing plan of care: Fatigue Pain Stability of the patient: Moderately Stable - Low risk of patient condition declining or worsening End of Shift Summary: Patient continues to progress with goals. Continue current plan of care. Joanie Aguilar R.N. - 07/16/2018 9:00 AM CDT Pt declined MMR vaccine at this time and requests to have it at night. MMR not given per pt request. Electronically signed by: Joanie Aguilar R.N. 07/16/18 10:32 AM Esperanza Anderson R.N. - 07/16/2018 5:22 AM CDT Goals: uneventful surgical postop recovery Identify possible barriers to meeting goals/advancing plan of care:Primary unscheduled C/S Stability of the patient: Moderately Stable - Low risk of patient condition declining or worsening End of Shift Summary: denies pain, uneventful night. States is very happy breast feeding going so well and happy that she had a c/s. Esperanza Anderson R.N. - 07/16/2018 3:22 AM CDT Postop recovery uneventful. Bonding with infant, loving and attentive to infant needs. Enjoying skinto skin contact with baby. Breast feeding going well. Anticipate normal postop/ recovery/progress. First baby, assessment, intervention, teaching, as per education plan. documented in this encounter Miscellaneous Notes Note - Linda Tenorio R.N., I.Javier - 07/17/2018 9:00 AM CDT This note was copied from a baby's chart. SUBJECTIVE Girl Brie Lewis, at 2 days old of age, was seen for a Consultation on [facility] rounds. Consultation Reason for Consult: Follow-up assessment, Patient request, Nurse request, discretion, Difficult latch, Breast/nipple concerns OBJECTIVE Delivery Details: Risk Factors: Other Obstetric Procedures-This : None Labor Complications: Failure to Progress in First Stage Delivery Type: , Low Transverse [place] Weight: 3670 g 1 Minute 5 Minute 10 Minute Totals: 9 9 Maternal Breast Assessment Breast Surgery: None Breast Size: Average Breast Characteristics: Pendulous Nipple Type-Right: Retractable (The left nipple retracts with compression) Nipple Assessment-Right: Tender, Compression stripe Right Breast: Soft Nipple Type-Left: Everted (short) Nipple Assessment-Left: Tender, Red, Compression stripe (Not at deep of crimson color prior to warm water soak as on the right nipple, nor as tender with latch but still 5/10 for latch pain.) Left Breast: Soft Colostrum Expressed: Yes (On right breast due to painful nipple, hand expressed and gave about 1 ml on spoon by Dad to baby) Assessment class: Yes Has mother breastfed before?: No. . Tools: Comfort gels, Spoon (Warm water soaks initiated, hand expressed colostrum under herhydrogel pads. Discussed lanolin and need to wash off before feeding - nipples too tender for that now.) Exclusive Pump and Bottle Feed: No Significant other/father of baby: Spouse, living together Tried laid back position on the left breast, baby unable to sustain latch so moved to football. Momneeded assistance to get baby relatched deep enough to get pain score from 5/10 to 2-3/10. Baby doesget soft chin with audible and visible swallowing, comfortable for mom with no wedge shape to nipple, but she is not independent with that yet. Assessment State: Quiet Suck: Rhythmic, Mature suck: 10-20 suckling bursts, Strong Oral Anatomy: Normal palate, tongue, jaw, chin, Appropriate frenulum Mucus Membranes: Moist Latch Score: Latch: Repeated attempts, hold nipple in mouth, stimulate to suck Audible Swallowing: Spontaneous and intermittent (24 hours old) Type of Nipple: Everted (After stimulation) Comfort (Breast/Nipple): Filling, red/small blisters/bruises, mild/moderate discomfort Hold (Positioning): Full assist, teach one side, mother does other, staff holds LATCH Score: 7 Input: 9 feedings/24 hours Infant Output: 3 voids/24 hours, Urine Color: Straw-yellow Urine Odor: No odor 5 stools/24 hours, Stool Amount: Medium Stool Appearance: Meconium Stool Color: Brown weight: 3670 g Current weight: Weight: 3430 g Percent of weight change since : -7% Weight change since previous weight: Weight Change (gm) : -240 Pct Wt Change: -6.54 % ASSESSMENT/PLAN Initiated warm water soaks, discussed lanolin, pacifier use and lansinoh hydrogel pads she brought from home. Continue to hand express for colostrum to use for skin care, and after feedings for satietyespecially during the cluster feeding baby wants to do at night, or if nipple needs a rest. Follow Up: follow up plan: consult daily on [facility] rounds. Linda Tenorio R.N., GabriellaLDenniseC. Note - Sarah Demarco R.N. - 07/16/2018 8:15 AM CDT This note was copied from a baby's chart. SUBJECTIVE Girl Brie Lewis, at 1 days old of age, was seen for a Consultation. Consultation Reason for Consult: Initial assessment OBJECTIVE Delivery Details: Risk Factors: Other Obstetric Procedures-This : None Labor Complications: Failure to Progress in First Stage Delivery Type: , Low Transverse [place] Weight: 3670 g 1 Minute 5 Minute 10 Minute Totals: 9 9 Maternal Breast Assessment Breast Surgery: None Breast Size: Large Breast Characteristics: Symmetrical Nipple Type-Right: Flat Nipple Assessment-Right: Intact Right Breast: Soft Nipple Type-Left: Flat Nipple Assessment-Left: Intact Left Breast: Soft Colostrum Expressed: Yes Assessment class: Yes Has mother breastfed before?: No. . Tools: Feeding cup Exclusive Pump and Bottle Feed: No Significant other/father of baby: Spouse, living together Infant Assessment State: Sleepy Suck: Rhythmic, Mature suck: 10-20 suckling bursts Oral Anatomy: Normal palate, tongue, jaw, chin, Appropriate frenulum Mucus Membranes: Moist Latch Score: Latch: Grasps breast, tongue down, lips flanged, rhythmic sucking Audible Swallowing: A few with stimulation Type of Nipple: Everted (After stimulation) Comfort (Breast/Nipple): Soft/non-tender Hold (Positioning): Full assist, teach one side, mother does other, staff holds LATCH Score: 8 Infant Input: 3 feedings/24 hours Output: 1 voids/24 hours, 2 stools/24 hours, Stool Amount: Medium Stool Appearance: Meconium Stool Color: Black weight: 3670 g Current weight: Weight: 3670 g Percent of weight change since : 0% Weight change since previous weight: Weight Change (gm) : 0 Pct Wt Change: 0 % ASSESSMENT/PLAN: Baby sleepy initially. Hand expressed from both breasts and gave to baby via finger. Baby more alert, latched on to left side in the cross cradle/cradle position, deeper latch after a few attempts. Encouraged expressing colostrum before/after feedings and rubbing into nipples for comfort. Encouraged feeding on cue, at least every 2-3 hours, offering both breasts. Increase stimulation/breast compression to help keep baby alert to feed. Follow Up: follow up plan: prn/am rounds Sarah Demarco R.N.} L&D Delivery Note - Jonas Buck M.D. - 07/15/2018 7:43 PM CDT OB Delivery Note 07/15/2018 Brie Lewis 22 y.o. Lewis, Girl Brie [[phone]] Delivery Providers Delivering clinician: Jonas Buck M.D. Provider Role Ale Fair R.N. Delivery Nurse Joanie Aguilar R.N. Nursery Nurse Audiovisual Aids Technician Review the Delivery Report for details. GA: 41w1d GP: GBS: Lab Results Component Value Date GRPBSTREP Negative 06/10/2018 Risk Factors: Other Other Risk Factors, if any: elevated bmi; 41.1 weeks ga Obstetric Procedures - This : None Labor Complications: EBL: 1500 mL Delivery Type: , Low Transverse ROM to Delivery Time: 7h 30m [place] Sex: Female [place] Weight: 3.67 kg The patient is a 22-year-old female 1 para 0 admitted at 41 weeks gestation for induction oflabor secondary to postdates. She underwent cervical ripening with Cytotec vaginally followed by Cervidil. She developed progressive contractions with the cervical ripening. Upon reaching 2-3 cm dilation 70% effaced at a -2 station a Moran bulb was placed just above the internal os of the cervix for adjuvant cervical ripening effect as well as institution of Pitocin for coordination of her contraction pattern. A labor epidural had been administered per patient with grasped with good pain alleviation. Patient progress in the active phase of labor though remained 7 cm dilation for several hours with no cervical change or progression. She was developing edema at the cervix. With apersistent RO T. Thus a diagnosis of failure to progress with deep transverse arrest/ ROT position Risks options complications dicussed with the patient and her and they desire to proceed with primary delivery. Consent form is included patient's medical record. 1 Minute 5 Minute 10 Minute Totals: 9 9 Details Pre-Op Diagnosis: 1. Intrauterine at 41w1d Failure to progress with deep transverse arrest/persistent RO T elevated bmi- Post-Op Diagnosis: Same Indications: None Procedure: SECTION - Abdomen Anesthesia: Spinal OR Medications: Intra-op Medications None Specimens: * No specimens in log * Drains: Indwelling Urinary Catheter Non-latex 16 Fr. (Active) Site Assessment Clean;Skin intact 07/15/2018 6:01 PM Collection Container Standard drainage bag 07/15/2018 6:01 PM Securement Method Securing device 07/15/2018 6:01 PM Daily Assessment of Need Urinary obstruction/retention/irrigation 07/15/2018 6:01 PM Findings: Normal uterus, tubes, and ovaries. Complications none Informed Consent: The risks, benefits, complications, and alternatives were discussed with the patient. The patient understood that the risks of section include, but are not limited to: injury to nearby structures or organs, infection, blood loss and possible need for transfusion, and potential need for more surgery including hysterectomy. The patient stated understanding and desired to proceed. All questionswere answered. The site of surgery was properly noted and marked. The patient was identified as Brie Lewis and the procedure verified as a delivery. A Time Out was held and the above information confirmed. Procedure Details: The patient was taken to the operating room. A pause was taken to ensure the correct patient and procedure. Under Spinal the abdomen was prepped and draped in sterile fashion. A Pfannenstiel skin incision was made. Dissection was carried through the skin, subcutaneous, and fascial layers. The rectus muscles were split in the midline and the peritoneal cavity was entered without difficulty. A bladder flap was developed with sharp and blunt dissection. A low transverse uterine incision was made and extended bilaterally. The infant was delivered from the Vertex Right Occiput Transverse position. See scores above. A dilute solution of oxytocin was infused, and the uterus was then massaged to allow it to contract down around the placenta and the placenta was delivered. The placenta was inspected and found to be intact with a three vessel cord. The uterus was cleared of all clots and debris. The uterine incision was inspected. No extensions were noted, and the uterus was closed with a (double) layer closure using1-0 Chromic suture. The uterine incision and bladder flap were noted to be hemostatic. The gutters were irrigated and cleared of all clots and debris. The fascia was reapproximated with a 0 Loop PDS sut ure. The subcutaneous area was irrigated, noted to be hemostatic, and was closed with 2-0 Vicryl. The skin was closed with 4-0 monocryl Accurate final count? yes The patient was brought to the recovery room with stable vital signs. The patient is a candidate for TOLAC in the future. Jonas Buck M.D. documented in this encounter Plan of Treatment Scheduled Referrals Name Type Priority Associated Order Schedule Diagnoses Obstetrics and Outpatient Referral Routine Expect ed: Gynecology office 08/29/2018 , visit in 6 weeks Expires: (clinic) 07/18/2021 Obstetrics and Outpatient Referral Routine 41 Weeks Gestation Expected: Gynecology Post Op 07/25/2018 (clinic) Section (Approximat e), Delivery (HCC) Expires: 07/18/2021 documented as of this encounter Procedures Procedure Name Priority Date/Time Associated Diagnosis Comme nts CBC WITH Routine 07/17/2018 8:18 AM Results f or this DIFFERENTIAL, B CDT procedure ar e in the results section. CBC WITH Routine 07/16/2018 7:04 AM Results f or this DIFFERENTIAL, B CDT procedure ar e in the results section. SECTION 07/15/2018 5:57 PM CDT ADULT OXYGEN Routine 07/15/2018 7:58 AM THERAPY CDT ADULT OXYGEN Routine 07/15/2018 7:58 AM THERAPY CDT ADULT OXYGEN Routine 07/15/2018 7:58 AM THERAPY CDT TESTING LOCATION Routine 07/14/2018 8:11 AM Resul ts for this CDT procedure are i n the results section. CBC WITHOUT Routine 07/14/2018 8:11 AM Results f or this DIFFERENTIAL, B CDT procedure ar e in the results section. TYPE AND SCREEN Routine 07/14/2018 8:11 AM Result s for this CDT procedure are i n the results section. LABOR INDUCTION Routine 07/14/2018 7:14 AM 41 Weeks Gestation CDT documented in this encounter Results (ABNORMAL) CBC with Differential, Blood (07/17/2018 8:18 AM CDT) [facility] Method Time Signature Hemoglobin 8.3 (L) 11.6 - 07/17/[address] [facility] 15.0 g/dL 8:21 AM CDT [facility] [place] [facility] Hematocrit 25.4 (L) 35.5 - 07/17/[address] [facility] 44.9 % 8:21 AM CDT [facility] Erythrocytes 2.71 (L) 3.92 - 07/17/[address] [facility] 5.13 8:21 AM CDT [facility] x10(12)/L [facility] MCV 93.7 78.2 - 07/17/[address] [facility] 97.9 fL 8:21 AM CDT [facility] RBC Distrib Width 13.6 12.2 - 07/17/[address] [facility] 16.1 % 8:21 AM CDT [facility] Platelet Count 213 157 - 371 07/17/[address] [facility] x10(9)/L 8:21 AM CDT [facility] Leukocytes 11.7 (H) 3.4 - 9.6 07/17/[address] [facility] x10(9)/L 8:21 AM CDT [facility] Neutrophils 9.18 (H) 1.56 - 07/17/[address] [facility] 6.45 8:21 AM CDT [facility] x10(9)/[facility] Lymphocytes 1.61 0.95 - 07/17/[address] [facility] 3.07 8:21 AM CDT [facility] x10(9)/[facility] Monocytes 0.82 (H) 0.26 - 07/17/[address] [facility] 0.81 8:21 AM CDT [facility] x10(9)/[facility] Eosinophils 0.03 0.03 - 07/17/[address] [facility] 0.48 8:21 AM CDT [facility] x10(9)/[facility] Basophils 0.03 0.01 - 07/17/[address] [facility] 0.08 8:21 AM CDT [facility] x10(9)/[facility] Specimen Anatomical Collection Method Collection Time Receive d Time (Source) Location / / Volume Laterality Blood (Blood, 07/17/2018 8:18 AM 07/17/20 18 8:18 Venous) CDT AM CDT Jonas Buck M.D. LAB BLOOD ADD-ON Performing Organization Address City/State/ZIP Code Phon e Number [facility] [address] [facility] [place] [address] [place] [facility] (ABNORMAL) CBC with Differential (07/16/2018 7:04 AM CDT) [facility] Method Time Signature Hemoglobin 9.0 (L) 11.6 - 07/16/[address] [facility] 15.0 g/dL 7:22 AM T [facility] Hematocrit 27.9 (L) 35.5 - 07/16/[address] [facility] 44.9 % 7:22 AM T [facility] Erythrocytes 3.05 (L) 3.92 - 07/16/[address] [facility] 5.13 7:22 AM CDT [facility] x10(12)/[facility] [place] [facility] MCV 91.5 78.2 - 07/16/[address] [facility] 97.9 fL 7:22 AM T [facility] RBC Distrib Width 13.2 12.2 - 07/16/[address] [facility] 16.1 % 7:22 AM T [facility] Platelet Count 232 157 - 371 07/16/[address] [facility] x10(9)/L 7:22 AM T [facility] Leukocytes 13.7 (H) 3.4 - 9.6 07/16/[address] [facility] x10(9)/L 7:22 AM T [facility] Neutrophils 10.60 (H) 1.56 - 07/16/[address] [facility] 6.45 7:22 AM CDT HEALTH x10(9)/L [facility] Lymphocytes 1.90 0.95 - 07/16/[address] [facility] 3.07 7:22 AM CDT [facility] x10(9)/L [facility] Monocytes 1.17 (H) 0.26 - 07/16/[address] [facility] 0.81 7:22 AM CDT [facility] x10(9)/[facility] [place] [facility] Eosinophils 0.02 (L) 0.03 - 07/16/[address] [facility] 0.48 7:22 AM CDT [facility] x10(9)/[facility] [place] [facility] Basophils 0.03 0.01 - 07/16/[address] [facility] 0.08 7:22 AM CDT [facility] x10(9[facility] Specimen Anatomical Collection Method Collection Time Receive d Time (Source) Location / / Volume Laterality Blood (Blood, 07/16/2018 7:04 AM 07/16/20 18 7:20 Venous) CDT AM CDT Jonas Buck M.D. LAB BLOOD ADD-ON Performing Organization Address City/State/ZIP Code Phon e Number [address] [place] [address] [facility] Testing Location (07/14/2018 8:11 AM CDT) P athologist Signature Testing [facility] 07/14/[address] [facility] Location 8:14 AM CDT [facility] Specimen Anatomical Collection Method Collection Time Receive d Time (Source) Location / / Volume Laterality Blood 07/14/2018 8:11 AM 8 8:14 CDT AM CDT Damaris Houston APRN, CNM, M.S.N., B.S.N., R.N. LAB BLO OD BANK TEST ORDERABLES Performing Organization Address City/State/ZIP Code Phon e Number [address] [address] [facility] [facility] Type and screen (07/14/2018 8:11 AM CDT) Patholo gist Method Time Signature ABO Group A 07/14/[address] [facility] 8:50 AM CDT [facility] Rh Type POS 07/14/[address] [facility] 8:50 AM CDT [facility] Antibody Screen NEG 07/14/[address] [facility] 8:51 AM CDT [facility] Type & Screen 07/17/2018 07/14/[address] [facility] Expiration 23:59 8:51 AM CDT [facility] ELXM Eligible Y 07/14/[address] [facility] 8:51 AM T [facility] Specimen Anatomical Collection Method Collection Time Receive d Time (Source) Location / / Volume Laterality Blood (Blood, 07/14/2018 8:11 AM 07/14/20 18 8:14 Venous) CDT AM CDT Damaris Houston APRN, CNM, M.S.N., B.S.N., R.N. LAB BLO OD BANK TEST ORDERABLES Performing Organization Address City/State/ZIP Code Phon e Number [facility] [address] [place] [address] [place] [facility] (ABNORMAL) CBC without Differential (07/14/2018 8:11 AM CDT) [facility] Method Time Signature Hemoglobin 11.2 (L) 11.6 - 07/14/[address] [facility] 15.0 g/dL 8:24 AM [facility] Hematocrit 33.8 (L) 35.5 - 07/14/[address] [facility] 44.9 % 8:24 AM [facility] Erythrocytes 3.66 (L) 3.92 - 07/14/[address] [facility] 5.13 8:24 AM [facility] x10(12)/L [facility] MCV 92.3 78.2 - 07/14/[address] [facility] 97.9 fL 8:24 AM [facility] RBC Distrib Width 13.1 12.2 - 07/14/[address] [facility] 16.1 % 8:24 AM [facility] Platelet Count 252 157 - 371 07/14/[address] [facility] x10(9)/L 8:24 AM [facility] Leukocytes 10.3 (H) 3.4 - 9.6 07/14/[address] [facility] x10(9)/L 8:24 AM [facility] Specimen Anatomical Collection Method Collection Time Receive d Time (Source) Location / / Volume Laterality Blood (Blood, 07/14/2018 8:11 AM 07/14/20 18 8:14 Venous) CDT AM CDT Damaris Houston APRN, CNM, M.S.N., B.S.N., R.N. LAB BLO OD ADD-ON Performing Organization Address City/State/ZIP Code Phon e Number [facility] [address] [place] [address] [place] [facility] documented in this encounter Visit Diagnoses Not on filedocumented in this encounter Admitting Diagnoses Diagnosis 41 Weeks Gestation (HCC) documented in this encounter Administered Medications Inactive Administered Medications - up to 3 most recent administrations Medication Order MAR Action Action Date Dose Rate Site acetaminophen tablet 650 mg Given 07/18/2018 9:38 AM CDT 650 mg (TYLENOL) 650 mg, oral, Every 6 hours PRN, moderate pain or score 4-6 of 10, Starting on Wed07/15/18 at 2048, Post-, Administer acetaminophen at same time as ketorolac or ibuprofen. Given 07/18/2018 2:37 AM CDT 650 mg Given 07/17/2018 7:23 PM CDT 650 mg bisacodyl suppository 10 mg (DULCOLAX) 10 mg, rectal, 2 times daily PRN, consti pation, Starting on Wed07/15/18 at 2048, Post-, Verify rectal route is perm itted. Ordered sequence of administration if both magnesium hydroxide and bisacody l are selected: magnesium hydroxide then bisacodyl until bowel movement achieved. calcium carbonate chewable tablet 400 mg of calcium (TUMS) 400 mg of calcium, oral, Every 2 hour WV N, indigestion, Starting on Wed07/15/18 at 2048, Post-, One 500 mg tablet contains 200 mg o f calcium. 500 mg calcium carbonate contains 200 mg of elemental calcium. docusate sodium capsule 100 mg (COLACE) Given 07/18/2018 8:28 AM CDT 100 mg 100 mg, oral, 2 times daily, First dose on Wed07/15/18 at 2100, Post-, Do NOT crush or chew. Given 07/17/2018 9:30 PM CDT 100 mg Given 07/17/2018 9:21 AM CDT 100 mg famotidine tablet 20 mg (PEPCID) Given 07/18/2018 8:28 AM CDT 20 mg 20 mg, oral, 2 times daily, First dose on Janeth 07/14/18 at 2100, famotidine 20 mg oral twice daily was interchanged for ranitidine 150 mg oral twice daily, Drug Monitoring Program: Pharmacist to adjust medication dosing based on indication and drug clearance factors. Given 07/17/2018 9:30 PM CDT 20 mg Given 07/17/2018 9:21 AM CDT 20 mg ibuprofen tablet 600 mg (ADVIL,MOTRIN) Given 07/18/2018 4:50 AM CDT 600 mg 600 mg, oral, Every 6 hours, First dose on Wed07/16/18 at 1100, Post-, Start 6 hours after last ketorolac dose administered Given 07/17/2018 10:56 PM CDT 600 mg Given 07/17/2018 4:45 PM CDT 600 mg lactated ringers 125 mL/hr, intravenous, Continuous, Star ting on Wed07/15/18 at 2100, Post-, Continue delivery fluids until current b ag of uterotonic finished then begin this fluid. Discontinue fluids and remove saline lock when intravenous medications finished and pain controlled with oral medications. magnesium hydroxide suspension 30 mL (TX LK OF MAGNESIA) 30 mL, oral, Every 8 hours PRN, constipation, Starting on Wed07/15/18 at 2047, Post-, Ordered sequence of administration if bot h magnesium hydroxide and bisacodyl are selected: magnesium hydroxide then bisac odyl until bowel movement achieved. naloxone injection 0.2 mg (NARCAN) 0.2 mg, intravenous, As needed, respirat ory depression, Starting on Wed07/15/18 at 2047, Post-, For respiratory rate less than 8 br eaths per minute or RASS score of -3, -4, -5. Apply oxygen to jesus p oxygen saturations greater than 90% and notify service. ondansetron (PF) injection 4 mg (ZOFRAN) 4 mg, intravenous, Every 6 hours PRN, na usea, vomiting, Starting on Wed07/15/18 at 2047, Post-, If patient unable to take oral ondansetron ODT disintegrating tablet 4 mg (ZOFRAN-ODT) 4 mg, oral, Every 6 hours PRN, nausea, v omiting, Starting on Wed07/15/18 at 2047, Post-, First line oxyCODONE IR tablet 10 mg (ROXICODONE) 10 mg, oral, Every 4 hours PRN, severe p ain or score 7-10 of 10, Starting on Wed07/15/18 at 2048, Post-, Begin 24 hours after neuraxial long-acting opiate given or if no neuraxial long-acting opi ate used start immediately post-operative. oxyCODONE IR tablet 5 mg (ROXICODONE) 5 mg, oral, Every 4 hours PRN, moderate pain or score 4-6 of 10, Starting on Wed07/15/18 at 2048, Post-, Begin 24 hours after neuraxial long-acting opiate given or if no neuraxial long-acting opi ate used start immediately post-operative. sennosides tablet 17.2 mg (SENOKOT) Given 07/17/2018 9:30 PM CDT 17.2 mg 17.2 mg, oral, Daily at bedtime, First dose on Wed07/15/18 at 2100, Post- Given 07/16/2018 10:18 PM CDT 17.2 mg Given 07/15/2018 11:01 PM CDT 17.2 mg simethicone chewable tablet 160 mg (MYLI CON) 160 mg, oral, Every 6 hours PRN, flatulence, for abdom inal gas, Starting on Wed07/15/18 at 2048, Post- witch wood pad 1 application (TUCKS) 1 application, topical, 3 times daily W[place] N, irritation, or pain., Starting on Wed07/15/18 at 2048, Post-, To perine um - If ordered may use in combination with benzocaine-menthol topical spray (DERMOPLAST) zolpidem tablet 5 mg (AMBIEN) Given 07/14/2018 9:43 PM CDT 5 mg 5 mg, oral, Bedtime PRN, sleep, Starting on Wed07/14/18 at 1834 documented in this encounter Active and Recently Administered Medications Times are shown in CDT. Scheduled Medication Order 07/16/2018 07/17/2018 07/18/2018 docusate sodium capsule 100 mg (COLACE) 0953 (Given - Provider: Joanie Aguilar R.N.)2605 (Given - Provider: Esperanza Anderson R.N.) 0921 (Given - Provider: Joanie Aguilar R.N.)213 (Given - Provider: Esperanza J Anderson, R.N.) 0828 (Given - Provider: Rocio MaddoxNDennise) 100 mg, oral, 2 times daily, First dose on Wed07/15/18 at 2100, Post-, Do NOT crush or chew. famotidine tablet 20 mg (PEPCID) 0953 (Given - Provide r: Rocio ShannonNDennise)2219 (Given - Provider: Esperanza Anderson R.N.) 0921 (Given - Provider: Rocio ShannonN.)2130 (Given - Provider: Ginny Mendez.N.) 0828 (Given - Provider: Portia Mullins RDenniseNDennise) 20 mg, oral, 2 times daily, First dose o n Janeth 07/14/18 at 2100, famotidine 20 mg oral twice daily was interchanged for ranitidine 150 mg oral twice daily, Drug Monitoring Program: Pharmacist to adjust m edication dosing based on indication and drug clearance factors. ibuprofen tablet 600 mg (ADVIL,MOTRIN) 1058 (Given - P rovider: Joanie Aguilar RDenniseN.)1649 (Given - Provider: Joanie Aguilar RDenniseN.)2243 (Given - Provider: Esperanza Anderson RDenniseN.) 0523 (Given - Provider: Esperanza Anderson R.N.)1108 (Given - Provider: Joanie Aguilar RDenniseN.)1645 (Given - Provider: Rocio ShannonN.)2256 (Given - Provider: Esperanza Anderson R.N.) 0450 (Given - Provider: Ginny Mendez.N.) 600 mg, oral, Every 6 hours, First dose on Wed07/16/18 at 1100, Post-, Start 6 hours after last ketorolac dose administered ketorolac injection 15 mg (TORADOL) (CANCELED) 0454 (G iven - Provider: Esperanza Anderson RDenniseNDennise) 15 mg, intravenous, Every 6 hours, First dose on Wed07/15/18 at 2100, For 3 doses, Post-, Start no sooner than 4 hours after last ketorolac dose. Administer acetaminophen at same time as ketorola c. Adult IV push rate: Over 15 seconds. Peds IV push rate: Over 1 minute. 60 mg dose only for IM, not recommended for IV. sennosides tablet 17.2 mg (SENOKOT) 2217 (Given - Prov ider: Esperanza Anderson R.N.) 2129 (Given - Provider: Esperanza Anderson R.N.) 17.2 mg, oral, Daily at bedtime, First d ose on Wed07/15/18 at 2100, Post- Continuous Medication Order 07/16/2018 07/17/2018 07/18/2018 lactated ringers 125 mL/hr, intravenous, Continuous, Star ting on Wed07/15/18 at 2100, Post- , Continue delivery fluids until current bag of uterotonic finished then begin this fluid. Discontinue fluids and remove saline lock when intravenous medications finished and pain controlled with oral medications. PRN Medication Order 07/16/2018 07/17/2018 07/18/2018 acetaminophen tablet 650 mg (TYLENOL) 1220 (Given - Pr ovider: Joanie Aguilar RJustina)1958 (Given - Provider: Esperanza Anderson R.N.) 0250 (Given - Provider: Esperanza Anderson R.N.)0926 (Given - Provider: Joanie Aguilar R.N.)1923 (Given - Provider: Esperanza Anderson R.N.) 0237 (Given - Provider: Esperanza Anderson R.N.)0938 (Given - Provider: Portia Mullins R.N.) 650 mg, oral, Every 6 hours PRN, moderat e pain or score 4-6 of 10, Starting on Wed07/15/18 at 8, Post-, Administer acetaminophen at same time as ketorolac or ibuprofen. bisacodyl suppository 10 mg (DULCOLAX) 10 mg, rectal, 2 times daily PRN, consti pation, Starting on Wed07/15/18 at 2048, Post-, Verify rectal route is permitted. Ordered sequence of administration if both magnesium hydroxide and bisaco dyl are selected: magnesium hydroxide th en bisacodyl until bowel movement achieved. calcium carbonate chewable tablet 400 mg of calcium (TUMS) 400 mg of calcium, oral, Every 2 hour W[place] N, indigestion, Starting on Wed07/15/18 at 2047, Post-, One 500 mg tablet contains 200 mg of calcium. 500 mg calcium carbonate contains 200 mg of elemental calcium. magnesium hydroxide suspension 30 mL (MILK OF MAGNESIA) 30 mL, oral, Every 8 hours PRN, constipa tion, Starting on Wed07/15/18 at 2047, Post-, Ordered sequence of administration if both magnesium hydroxide and bisacodyl are selected: magnesium hydroxide then bisacodyl until bowel movement achieved. naloxone injection 0.2 mg (NARCAN) 0.2 mg, intravenous, Once as needed, res piratory depression, Starting Wed07/15/18 at 2047, For 1 dose, PACU & Post-Op, For respiratory rate less than 8 breaths per minute or RASS score of -3, -4, -5. If given, notify Anesthesia Service. naloxone injection 0.2 mg (NARCAN) 0.2 mg, intravenous, As needed, respirat ory depression, Starting on Wed07/15/18 at 2047, Post-, For respiratory rate less than 8 breaths per minute or RASS score of -3, -4, -5. Apply oxygen to ke ep oxygen saturations greater than 90% and notify service. ondansetron (PF) injection 4 mg (ZOFRAN) 4 mg, intravenous, Every 6 hours PRN, na usea, vomiting, Starting on Wed07/15/18 at 2047, Post-, If patient unable to take oral ondansetron ODT disintegrating tablet 4 mg (ZOFRAN-ODT) 4 mg, oral, Every 6 hours PRN, nausea, v omiting, Starting on Wed07/15/18 at 2047, Post-, First line oxyCODONE IR tablet 10 mg (ROXICODONE) 10 mg, oral, Every 4 hours PRN, severe p ain or score 7-10 of 10, Starting on Wed07/15/18 at 2047, Post-, Begin 24 hours after neuraxial long-acting opiate given or if no neuraxial long-acting opiate used start immediately post-operative. oxyCODONE IR tablet 5 mg (ROXICODONE) 5 mg, oral, Every 4 hours PRN, moderate pain or score 4-6 of 10, Starting on Wed07/15/18 at 2047, Post-, Begin 24 hours after neuraxial long-acting opiate given or if no neuraxial long-acting opiate used start immediately post-operative. simethicone chewable tablet 160 mg (MYLICON) 160 mg, oral, Every 6 hours PRN, flatule nce, for abdominal gas, Starting on Wed07/15/18 at 2047, Post- witch wood pad 1 application (TUCKS) 1 application, topical, 3 times daily [place] N, irritation, or pain., Starting on Wed07/15/18 at 2047, Post-, To perineum - If ordered may use in combination with benzocaine-menthol topical spray (DERMOPLAST) zolpidem tablet 5 mg (AMBIEN) 5 mg, oral, Bedtime PRN, sleep, Starting on Janeth 07/14/18 at 1834 documented in this encounter Care Teams Rehab Office Coordinator Relationship Specialty Start Date End Date Unassigned, Pcp PCP - General Family Medicine 02/24/18 documented as of this encounter
--- OUTSIDE RECORDS SUMMARY | 2022-08-07 10:37 | XMS_ITS | Encounter Summary ---
:1995 Author Organization [facility] Address [address] [place] [address] Care Team Providers Name Role Phone Unassigned, Pcp Primary Care Provider Unavailable Reason for Visit Auth/Cert Specialty Diagnoses / Procedures Referred By Contact Refer red To Contact Diagnoses 41 Weeks Gestation (HCC) Procedures NA Referral ID Status Reason Start Date Expiration Date Visits Requ ested Visits Authorized [id number] 1 1 Encounter Details Date Type Department Care Team Description 07/15/2018 Anesthesia Event [facility] MAIN OR Eddie Rodriguez, [address] HUMAN PROJECTILE, RESIDENTIAL [place] [phone] [phone] [place] [phone] Anesthesia Record Procedure Summary Procedure Name Responsible Anesthesia Start Anesthesia Stop Time Anesthesiologist Time SECTION Eddie Rodriguez, MARIA LUISA, 07/15/18 0715 07/15 1943 (Abdomen) RESIDENTIAL CASE MANAGER Events Date Time Event Comment 07/15/2018 0715 An Start Machine/Equipmen t Checked Infection Precautions Foll owed Procedure/Site Verified NPO Sta tus Verified Supine Standard ASA Mon itors Applied 0905 Quick Note Gave 5 mL bolus off pump and increased basal rate to 10 mL/hr. 1110 Quick Note Pulled catheter back to 9cm. 1115 Quick Note 1811 Epidural to 1811 In Room 1822 Turnover to Proceduralist 1831 Proc Start 183 Uterine Incision 1840 Occurred 1919 Turnover to ANE Staff 1920 Proc Fin 1929 Out of Room 194 an stop data 1943 An End I completed my h andoff to the receiving staff during i ch we 1. Identified the patient 2. Ident ified the responsible provider 3. Revi ewed the pertinent medical history 4. Discu ssed the surgical course 5. Reviewed intra-o p anesthesia management and issues during an esthesia 6. Set expectations for post-procedure period 7. Allowed opportun ity for questions and acknowledgement of understanding. Name Total lidocaine-EPINEPHrine PF 1.5%-1:200,000 injection 5 mL fentaNYL 50 mcg/mL injection 50 mcg fentaNYL PF 50 mcg/mL Regional 150 mcg bupivacaine PF 0.25% injection 10 mL ondansetron 4 mg/2 mL injection 4 mg oxytocin 60 kandy-units/mL in NaCl 0.9% 500 mL infusio n (PITOCIN) 1,000 kandy-units bupivacaine-dextrose PF 0.75%-8.25% injection 1.8 mL HYDROmorphone PF 100 mcg/mL Regional 100 mcg ceFAZolin 2 g phenylephrine 20 mg/250 mL infusion 2.83 mg oxytocin 10 Unit/mL injection 3 Units dexamethasone 4 mg/mL injection 4 mg lactated ringers 1,500 mL Agents No agents on file. Blood No blood administrations on file. Lines, Drains, and Airways Type Details Placement Removal Peripheral IV Placement Date: 07/14/18 0850 by 07/16/18 0850 b y 07/14/18; Placement Nikki Ratliff Perfect, S amantha L, Time: 0850; Catheter R.N. R.N. Size: 20 G; Orientation: Right; Location: Antecubital; Site Prep: Chlorhexidine (Preferred); Technique: Ultrasound guidance; Inserted by: Tony DOBBINS; Insertion Attempts: 5+; Removal Date: 07/16/18; Removal Time: 0850; Removal Reason: Drainage Epidural Catheter Placement Date: 07/15/18 0730 by 07/15/183 by 07/15/18; Placement Tee Rachel Cochrane, Joshua A, Time: 729 (created via HUMAN PROJECTILE, RESIDENTIAL CASE MANAGER, DNAP HUMAN PROJECTILE, C RNA procedure documentation); Location: Lumbar; Removal Date: 07/15/18; Removal Time: 1812; Removal Assessment: Tip intact Indwelling Urinary Placement Date: 07/15/18 1000 by 07/16/18 090 0 by Catheter 07/15/18; Placement Joanie Aguilar, Joanie Aguilar, Time: 1000; Inserted by: R.N. R.N. Joanie Perfect, RN; Type: Non-latex; Size: 16 Fr.; Balloon Size: 10 mL; Urine Returned: Yes; Removal Date: 07/16/18; Removal Time: 0900; Removal Reason: Per protocol (RETIRED) Incision 07/15/18; 183; Abdomen; 07/15/18 1837 [address] [facility] WTPRF [id number]; Dakota Osman R.N. [facility]-Back[facility] 06/24/21 (Removed by Geraldine whittaker background completion Automated Batch Job utility); 1418 (Removed by background completion utility) documented in this encounter Social History Tobacco Use Types Packs/Day Years Used Date Smoking Tobacco: Never Smokeless Tobacco: Never Alcohol Use Standard Drinks/Week Comments No 0 (1 standard drink = 0.6 oz pure alcoho l) Sex Assigned at Date Recorded Female 07/07/2018 9:07 AM CDT documented as of this encounter OR Notes Anesthesia Postprocedure Evaluation - Eddie Rodriguez APRN, CRNA, D.N.P. - 07/16/2018 1:04 PM CDT Patient: Brie Lewis Procedure Summary Date: 07/15/18 Room / Location: [address] 14[address] / [facility] - GI Anesthesia Start: 714 Anesthesia Stop: 1942 Procedure: SECTION (N/A Abdomen) Diagnosis: Surgeon: Jonas Buck M.D. Responsible Provider: Eddie Rodriguez APRN, CRNA, D.N.P. Anesthesia Type: regional ASA Status: 2 Anesthesia Type: regional Last vitals BP 134/83 (07/16/18 1200) Temp 37 ??C (07/16/18 1200) Pulse see nursing notes Resp 16 (07/16/18 1200) SpO2 see nursing notes Anesthesia Post Evaluation Patient Disposition: dismissal Cardiovascular status: hemodynamics (HR & BP) acceptable Respiratory status: patent airway with spontaneous effort Temperature: normothermic Oxygen requirements: room air Level of consciousness: awake Pain score: pain adequately controlled and/or at baseline Post Op nausea/vomiting: none Hydration status: euvolemic Anesthesia Procedure Notes - Eddie Rodriguez APRN, CRNA, D.N.P. - 07/15/2018 8:22 PM CDTAssociated Order(s): ANESTHESIA REGIONAL BLOCK Regional Block Performed by: EDDIE RODRIGUEZ Authorized by: EDDIE RODRIGUEZ Location: [place] protocol: All relevant documentation and testing were reviewed and available. All required blood products, implants, devices and/or special equipment were made available as applicable. The pre-procedure verification was conducted, the correct site was marked if required, and the procedural time out was conducted prior to performing the procedure and confirmed in a procedural pause: yes Pre-procedure details: Appropriate hand hygiene, gown, cap, mask, protective eyewear, sterile gloves, skin preparation, sterile drape, and strict aseptic technique were utilized as applicable for the procedure.: yes Skin prep: chlorhexidine Sedation/Anesthesia (see MAR for exact dosages): Anesthesia method: local infiltration Procedure details: Block type: primary anesthetic Neuraxial: spinal Positioning: sitting Approach: midline Level inserted: L3-4 Block technique: landmark technique Injection technique: single injection Needle type: pencan Gauge: 25G Length: 10 CSF: yes Pain with needle advancement or injection of local anesthetic: no Post-procedure details: Procedure completed successfully: successful procedure Other complications: none Anesthesia Preprocedure Evaluation - Eddie Rodriguez APRN, CRNA, D.N.P. - 07/15/2018 8:11 AM CDT Anesthesia Pre-Evaluation Pertinent components of the patient's history including current problem list, medical history, surgical history, family history, social history, medications and allergies were reviewed and updated as appropriate. The patient was examined and the Pre-op diagnosis, planned procedure, and H&P were reviewed and remain unchanged. PROBLEM LIST Relevant Problems Other (+) 41 Weeks Gestation (+) Complication Obesity Body Mass Index 30 To 40 OBJECTIVE PHYSICAL EXAMINATION Airway (HEENT) Mallampati: II TM Distance: >3 FB Neck ROM: Full Cardiovascular Rhythm: Regular Rate: Normal Cardiovascular Assessment: Normal Pulmonary Pulmonary Assessment: Clear Neurological Normal Dental Normal General / Constitutional Normal ASSESSMENT / PLAN ANESTHESIA PLAN ASA: 2 Anesthesia Plan: regional Patient seen and allergies reviewed; anesthesia plan and risks discussed directly with patient / legal guardian, or through an normalizer; patient evaluated and approved for anesthesia / sedation. The use of blood products not discussed Discussed risks, benefits, and alternatives to labor analgesic options. Risks included but not limited to infection, bleeding, nerve damage, post dural puncture headache, back discomfort, and ineffective block. Pt verbalized understanding of risks and all questions were answered. Anesthesia Procedure Notes - Eddie Rodriguez APRN, CRNA, D.N.P. - 07/15/2018 8:09 AM CDTAssociated Order(s): ANESTHESIA REGIONAL BLOCK Regional Block Date/Time: 07/15/2018 7:30 AM Performed by: TEE RACHEL Authorized by: EDDIE RODRIGUEZ Location: labor room [place] protocol: All relevant documentation and testing were reviewed and available. All required blood products, implants, devices and/or special equipment were made available as applicable. The pre-procedure verification was conducted, the correct site was marked if required, and the procedural time out was conducted prior to performing the procedure and confirmed in a procedural pause: yes Pre-procedure details: Appropriate hand hygiene, gown, cap, mask, protective eyewear, sterile gloves, skin preparation, sterile drape, and strict aseptic technique were utilized as applicable for the procedure.: yes Skin prep: chlorhexidine Sedation/Anesthesia (see MAR for exact dosages): Anesthesia method: local infiltration Procedure details: Block type: OB block Neuraxial: lumbar epidural Positioning: sitting Approach: midline Level inserted: L3-4 Block technique: landmark technique Injection technique: catheter Epidural space identification technique: loss of resistance - fluid Loss of resistance depth: 7 Needle type: gomez Gauge: 18G Length: 10 Catheter taped (cm at skin): 12 CSF: no Test dose: yes- negative test dose Pain with needle advancement or injection of local anesthetic: no Post-procedure details: Procedure completed successfully: successful procedure Other complications: none documented in this encounter Plan of Treatment Not on filedocumented as of this encounter Procedures Procedure Name Priority Date/Time Associated Comments Diagnosis ANESTHESIA REGIONAL Routine 07/15/2018 8:22 PM Re sults for this BLOCK CDT procedure are i n the results section. ANESTHESIA REGIONAL Routine 07/15/2018 8:09 AM Re sults for this BLOCK CDT procedure are i n the results section. documented in this encounter Results Regional Block (07/15/2018 8:22 PM CDT) Narrative Eddie Rodriguez APRN, CRNA, D.N.P. - 07/15/2018 8:22 PM CDT Eddie Rodriguez APRN, CRNA, D.NAna. ? 07/15/2018 ??8:22 PM Regional Block Performed by: EDDIE RODRIGUEZ Authorized by: EDIDE RODRIGUEZ Location: [place] protocol: All relevant documentation and testing w ere reviewed and available. All required blood products, implants, devic es and/or special equipment were made available as applicable. The pre-pr ocedure verification was conducted, the correct site was marked i f required, and the procedural time out was conducted prior to performi ng the procedure and confirmed in a procedural pause: yes ?? Pre-procedure details: Appropriate hand hygiene, gown, cap, mas k, protective eyewear, sterile gloves, skin preparation, sterile drape, and strict aseptic technique were utilized as applicable for the procedure .: yes ?? Skin prep: chlorhexidine Sedation/Anesthesia (see MAR for exact d osages): Anesthesia method: local infiltration Procedure details: Block type: primary anesthetic ?? Neuraxial: spinal ?? Positioning: sitting ?? Approach: midline Level inserted: L3-4 Block technique: landmark technique ?? Injection technique: single injection Needle type: pencan Gauge: 25G Length: 10 CSF: yes ?? Pain with needle advancement or injectio n of local anesthetic: no ?? Post-procedure details: Procedure completed successfully: succes sful procedure Other complications: none Procedure Note Eddie Rodriguez APRN, CRNA, D.N.P. - 07/15/2018 8:22 PM CDT Regional Block Performed by: EDDIE RODRIGUEZ Authorized by: EDDIE RODRIGUEZ Location: [place] protocol: All relevant documentation and testing w ere reviewed and available. All required blood products, implants, devices and/or special equipment were made available as applicable. The pre-procedure verification was conducted, the correct site was marked i f required, and the procedural time out was conducted prior to performing the procedure and confirmed in a procedural pause: yes Pre-procedure details: Appropriate hand hygiene, gown, cap, mas k, protective eyewear, sterile gloves, skin preparation, sterile drape, and strict aseptic technique were utilized as applicable for the procedure.: yes Skin prep: chlorhexidine Sedation/Anesthesia (see MAR for exact d osages): Anesthesia method: local infiltration Procedure details: Block type: primary anesthetic Neuraxial: spinal Positioning: sitting Approach: midline Level inserted: L3-4 Block technique: landmark technique Injection technique: single injection Needle type: pencan Gauge: 25G Length: 10 CSF: yes Pain with needle advancement or injectio n of local anesthetic: no Post-procedure details: Procedure completed successfully: succes sful procedure Other complications: none Eddie Rodriguez APRN, CRNA PROCEDURE/MINOR SURGICAL ORDERABLES LDA ANE EPIDURAL CATHETER (07/15/2018 8:09 AM CDT) Narrative Eddie Rodriguez APRN, CRNA, D.N.P. - 07/15/2018 8:09 AM CDT Eddie Rodriguez APRN, CRNA, D.N.P. ? 07/15/2018 ??8:10 AM Regional Block Date/Time: 07/15/2018 7:30 AM Performed by: TEE RACHEL Authorized by: EDDIE RODRIGUEZ Location: labor room [place] protocol: All relevant documentation and testing w ere reviewed and available. All required blood products, implants, devic es and/or special equipment were made available as applicable. The pre-pr ocedure verification was conducted, the correct site was marked i f required, and the procedural time out was conducted prior to performi ng the procedure and confirmed in a procedural pause: yes ?? Pre-procedure details: Appropriate hand hygiene, gown, cap, mas k, protective eyewear, sterile gloves, skin preparation, sterile drape, and strict aseptic technique were utilized as applicable for the procedure .: yes ?? Skin prep: chlorhexidine Sedation/Anesthesia (see MAR for exact d osages): Anesthesia method: local infiltration Procedure details: Block type: OB block ?? Neuraxial: lumbar epidural ?? Positioning: sitting ?? Approach: midline Level inserted: L3-4 Block technique: landmark technique ?? Injection technique: catheter Epidural space identification technique: loss of resistance - fluid Loss of resistance depth: 7 Needle type: gomez Gauge: 18G Length: 10 Catheter taped (cm at skin): 12 CSF: no ?? Test dose: yes- negative test dose ?? Pain with needle advancement or injectio n of local anesthetic: no ?? Post-procedure details: Procedure completed successfully: succes sful procedure Other complications: none Procedure Note Eddie Rodriguez APRN, ANGELIQUE, D.N.P. - 07/15/2018 8:09 AM CDT Regional Block Date/Time: 07/15/2018 7:30 AM Performed by: TEE RACHEL Authorized by: EDDIE RORDIGUEZ Location: labor room [place] protocol: All relevant documentation and testing w ere reviewed and available. All required blood products, implants, devices and/or special equipment were made available as applicable. The pre-procedure verification was conducted, the correct site was marked i f required, and the procedural time out was conducted prior to performing the procedure and confirmed in a procedural pause: yes Pre-procedure details: Appropriate hand hygiene, gown, cap, mas k, protective eyewear, sterile gloves, skin preparation, sterile drape, and strict aseptic technique were utilized as applicable for the procedure.: yes Skin prep: chlorhexidine Sedation/Anesthesia (see MAR for exact d osages): Anesthesia method: local infiltration Procedure details: Block type: OB block Neuraxial: lumbar epidural Positioning: sitting Approach: midline Level inserted: L3-4 Block technique: landmark technique Injection technique: catheter Epidural space identification technique: loss of resistance - fluid Loss of resistance depth: 7 Needle type: gomez Gauge: 18G Length: 10 Catheter taped (cm at skin): 12 CSF: no Test dose: yes- negative test dose Pain with needle advancement or injectio n of local anesthetic: no Post-procedure details: Procedure completed successfully: succes sful procedure Other complications: none Eddie Rodriguez HUMAN PROJECTILE, RESIDENTIAL CASE MANAGER PROCEDURE/MINOR SURGICAL ORDERABLES documented in this encounter Visit Diagnoses Not on filedocumented in this encounter Administered Medications Inactive Administered Medications - up to 3 most recent administrations Medication Order MAR Action Action Date Dose Rate Site bupivacaine PF 0.25 % (2.5 mg/mL) Given 07/15/2018 7:45 AM CDT 5 mL injection (MARCAINE) As needed, Starting on Wed07/15/18 at 0740, Anesthesia Intra-op Given 07/15/2018 7:40 AM CDT 5 mL gnhutrljsoo-mljzjdnv-tykdg (PF) 0.75 % (7.5 Given 07/15/2018 6:21 PM CDT 1.8 mL mg/mL) injection (MARCAINE SPINAL) As needed, Starting on Wed07/15/18 at 1821, Anesthesia Intra-op ceFAZolin injection (ANCEF) Given 07/15/2018 6:23 PM CDT 2 g As needed, Starting on Wed07/15/18 at 1823, Anesthesia Intra-op dexamethasone injection (DECADRON) Given 07/15/2018 7:03 PM CDT 4 mg As needed, Starting on Wed07/15/18 at 1903, Anesthesia Intra-op fentaNYL injection (SUBLIMAZE) Given 07/15/2018 7:20 AM CDT 50 mcg As needed, severe pain or score 7-10 of 10, Starting on Wed07/15/18 at 0720, Anesthesia Intra-op fentaNYL injection Regional (SUBLIMAZE) Given 07/15/2018 3:25 PM CDT 100 mcg As needed, Starting on Wed07/15/18 at 0740, Anesthesia Intra-op Given 07/15/2018 7:40 AM CDT 50 mcg HYDROmorphone injection Regional (DILAUD ID) Given 07/15/2018 6:46 PM CDT 25 mcg As needed, Starting on Wed07/15/18 at 1821, Anesthesia Intra-op Given 07/15/2018 6:21 PM CDT 75 mcg lactated ringers New Bag 07/15/2018 7:16 PM CDT 125 mL/hr, intravenous, Continuous, Starting on Janeth 07/14/18 at 0800, L&D Pre-Delivery, Start if patient requested epidural or unable to tolerate oral Rate/Dose Verify 07/15/2018 6:12 PM CDT New Bag 07/15/2018 4:01 PM CDT 125 mL/hr 125 mL/hr lidocaine-EPINEPHrine (PF) 1.5 %-1:200,000 Given 07/15/2018 7:35 AM CDT 5 mL injection (XYLOCAINE W/EPI) As needed, Starting on Wed07/15/18 at 0735, Anesthesia Intra-op ondansetron (PF) injection (ZOFRAN) Given 07/15/2018 6:12 PM CDT 4 mg intravenous, As needed, nausea, vomiting, Starting on Wed07/15/18 at 1812, Anesthesia Intra-op oxytocin 60 kandy-units/mL Rate/Dose 07/15/2018 6:59 15 kandy-un its/min 15 mL/hr in NaCl 0.9% 500 mL Change PM CDT infusion (PITOCIN) Continuous Infusion: Per Instructions PRN, Starting on Wed07/15/18 at 1842, Anesthesia Intra-op New Bag 07/15/2018 6:42 PM CDT 20 kandy-units/min 20 mL/hr oxytocin injection (PITOCIN) Given 07/15/2018 6:48 PM CDT 3 Units As needed, Starting on Wed07/15/18 at 1848, Anesthesia Intra-op phenylephrine 80 mcg/mL in Rate/Dose 07/15/2018 7:07 0.2 mcg/kg/min 17.1 mL/hr NaCl 0.9% 250 mL infusion Change PM CDT Continuous Infusion: Per Instructions PRN, Starting on Wed07/15/18 at 1814, Anesthesia Intra-op Rate/Dose Change 07/15/2018 6:58 PM CDT 0.3 mcg/kg/min 25.7 mL/hr Rate/Dose Change 07/15/2018 6:45 PM CDT 0.4 mcg/kg/min 34.2 mL/hr documented in this encounter Care Teams Vision Care Associate Relationship Specialty Start Date End Date Unassigned, Pcp PCP - General Family Medicine 02/24/18 documented as of this encounter
--- OUTSIDE RECORDS SUMMARY | 2022-08-07 10:37 | XMS_ITS | Encounter Summary ---
:1995 Author Organization [facility] Address [address] [place] [address] Care Team Providers Name Role Phone Unassigned, Pcp Primary Care Provider Unavailable Reason for Referral Outpatient (Routine) - Closed Specialty Diagnoses / Procedures Referred By Contact Refer red To Contact Obstetrics and Jennifer Sargent APRN, [facility] Gynecology C.N.P. [address] [place] [address] Referral ID Status Reason Start Date Expiration Date Visits Requ ested Visits Authorized [id number] Closed 04/15/2018 04/15/2019 1 1 Reason for Visit Reason Comments Routine Visit Outpatient (Routine) - Closed Specialty Diagnoses / Procedures Referred By Contact Refer red To Contact Obstetrics Jennifer Davis APRN, [facility] Gynecology C.N.P. [address] [place] [address] Referral ID Status Reason Start Date Expiration Date Visits Requ ested Visits Authorized [id number] Closed 03/18/2018 03/18/2019 1 1 Encounter Details Date Type Department Care Team Description 04/15/2018 Routine Department of Jennifer Sargent Encounte r For Supervision Of Normal Unspecified Unspecified Trimester (Primary Dx); Obstetrics and MARIA LUISA, C.N.P. Care And Lactating (HCC) Gynecology in [address] [address] [place], [place] [phone] (Work) [phone] Social History Tobacco Use Types Packs/Day Years Used Date Smoking Tobacco: Never Smokeless Tobacco: Never Alcohol Use Standard Drinks/Week Comments No 0 (1 standard drink = 0.6 oz pure alcoho l) Sex Assigned at Date Recorded Female 07/07/2018 9:07 AM CDT documented as of this encounter Last Filed Vital Signs Vital Sign Reading Time Taken Comments Blood Pressure 114/80 04/15/2018 2:55 PM CDT Pulse - - Temperature - - Respiratory Rate - - Oxygen Saturation - - Inhaled Oxygen Concentration - - Weight 108 kg (238 lb 15.7 oz) 04/15/2018 2:55 PM CDT Height - - Body Mass Index 40.8 11/13/2016 11:23 AM VINEYARD TENDER documented in this encounter Progress Notes Jennifer Sargent APRN, C.N.P. - 04/15/2018 3:00 PM CDT Tdap today. GCT/CBC/syphilis today. Good movement. No cramping or bleeding. Twenty-eight week education completed. Is experiencing heartburn, Tums are giving her relief. Given prescription for breast pump. Is undecided about colostrum collection at this time. documented in this encounter Plan of Treatment Scheduled Referrals Name Type Priority Associated Order Schedule Diagnoses Obstetrics and Outpatient Referral Routine Expect ed: Gynecology office 05/16/2018 visit (clinic) (Approximate) , Expires: 04/15/2021 documented as of this encounter Visit Diagnoses Diagnosis Encounter For Supervision Of Normal Preg fady Unspecified Trimester (HCC) - Primary Care And Lactating documented in this encounter Care Teams Candle Wrapper Relationship Specialty Start Date End Date Unassigned, Pcp PCP - General Family Medicine 02/24/18 documented as of this encounter
--- OUTSIDE RECORDS SUMMARY | 2022-08-07 10:37 | XMS_ITS | Encounter Summary ---
:1995 Author Organization [facility] Address [address] [place] [address] Care Team Providers Name Role Phone Unassigned, Pcp Primary Care Provider Unavailable Encounter Details Date Type Department Care Team Description 05/10/2018 Orders Only Department of Devin Hall, Martin Urinakristopher y Obstetrics and M.B.B.S. (Primary Dx) Gynecology in [address] [phone] Social History Tobacco Use Types Packs/Day Years Used Date Smoking Tobacco: Never Smokeless Tobacco: Never Alcohol Use Standard Drinks/Week Comments No 0 (1 standard drink = 0.6 oz pure alcoho l) Sex Assigned at Date Recorded Female 07/07/2018 9:07 AM CDT documented as of this encounter Plan of Treatment Not on filedocumented as of this encounter Results Bacterial Culture, Aerobic + Susc, Urine (05/11/2018 4:25 PM CDT) [facility] Method Time Signature Bacterial No growth 05/12/2018 [facility] Culture, after 1 day 6:12 PM CDT HEALTH Aerobic, Urine of SYSTEM- U incubation. [facility] Specimen Anatomical Collection Method Collection Time Receive d Time (Source) Location / / Volume Laterality Urine (Urine, 05/11/2018 4:25 PM 05/11/20 18 Midstream) CDT 10:12 PM CDT Comment: Specimen Source Site: Urine Devin Hall M.B.B.S. LAB MICROBIOLOGY - GENERAL O RDERABLES Performing Organization Address City/State/ZIP Code Phon e Number [facility] [address] [place] [address] [place] [id number] [facility] documented in this encounter Visit Diagnoses Diagnosis Symptom Urinary - Primary documented in this encounter Care Teams Superintendent Water And Sewer Systems Relationship Specialty Start Date End Date Unassigned, Pcp PCP - General Family Medicine 02/24/18 documented as of this encounter
--- OUTSIDE RECORDS SUMMARY | 2022-08-07 10:37 | XMS_ITS | Encounter Summary ---
:1995 Author Organization [facility] Address [address] [place] [address] Care Team Providers Name Role Phone Unassigned, Pcp Primary Care Provider Unavailable Encounter Details Date Type Department Care Team Description 05/11/2018 Hospital Encounter Department of Devin Hall, Symptom Urinary Laboratory Medicine in [facility].[address] [phone] Social History Tobacco Use Types Packs/Day [...] End Date Take 1 tablet by 0 apsuphr-iorriquc-qquc mouth daily. fumarate-FA (for_VINATE M) 27-1 mg per tablet raNITIdine (ZANTAC) 150 Take 1 tablet (150 180 tablet 3 10/201705/04/2019 mg tablet mg total) by mouth 2 (two) times a day. documented as of this encounter Plan of Treatment Not on filedocumented as of this encounter Procedures Procedure Name Priority Date/Time Associated Diagnosis Comme nts BACTERIAL CULTURE, Routine 05/11/2018 4:25 PM Symptom Urinary Results for this AEROBIC + SUSC, CDT procedure ar e in URINE the results section. documented in this encounter Results Bacterial Culture, Aerobic + Susc, Urine (05/11/2018 4:25 PM CDT) [facility] Method Time Signature Bacterial No growth 05/12/2018 [facility] Culture, after 1 day 6:12 PM CDT HEALTH Aerobic, Urine of SYSTEM- EAU incubation. [facility] Specimen Anatomical Collection Method Collection Time Receive d Time (Source) Location / / Volume Laterality Urine (Urine, 05/11/2018 4:25 PM 05/11/20 18 Midstream) CDT 10:12 PM CDT Comment: Specimen Source Site: Urine Devin Hunt LAB MICROBIOLOGY - GENERAL O RDERABLES Performing Organization Address City/State/ZIP Code Phon e Number [facility] [address] [facility] [place] [address] [facility] documented in this encounter Visit Diagnoses Diagnosis Symptom Urinary documented in this encounter Care Teams Stock And Station Agent Relationship Specialty Start Date End Date Unassigned, Pcp PCP - General Family Medicine 02/24/18 documented as of this encounter
--- OUTSIDE RECORDS SUMMARY | 2022-08-07 10:37 | XMS_ITS | Encounter Summary ---
:1995 Author Organization [facility] Address [address] [place] [address] Care Team Providers Name Role Phone Unassigned, Pcp Primary Care Provider Unavailable Reason for Visit Reason Comments Routine Visit Outpatient (Routine) - Closed Specialty Diagnoses / Procedures Referred By Contact Refer red To Contact Obstetrics and Jennifer Sargent, MARIA LUISA, [facility]necology C.N.P. [address] [place] [address] Referral ID Status Reason Start Date Expiration Date Visits Requ ested Visits Authorized [id number] Closed 05/13/2018 05/13/2019 1 1 Encounter Details Date Type Department Care Team Description 07/07/2018 Routine Department of Jennifer Sargent, 41 Weeks Gestation Obstetrics and MARIA LUISA, C.N.P. (Primary Dx) Gynecology in [address] [address] [place], [place] [phone] (Work) [phone] Social History Tobacco Use Types Packs/Day Years Used Date Smoking Tobacco: Never Smokeless Tobacco: Never Alcohol Use Standard Drinks/Week Comments No 0 (1 standard drink = 0.6 oz pure alcoho l) Sex Assigned at Date Recorded Female 07/07/2018 9:07 AM CDT documented as of this encounter Last Filed Vital Signs Vital Sign Reading Time Taken Comments Blood Pressure 132/82 07/07/2018 9:26 AM CDT Pulse - - Temperature - - Respiratory Rate - - Oxygen Saturation - - Inhaled Oxygen Concentration - - Weight 113 kg (249 lb 5.4 oz) 07/07/2018 9:26 AM CDT Height - - Body Mass Index 42.57 11/13/2016 11:23 AM CONTACT OFFICER documented in this encounter Progress Notes Jennifer Sargent APRN, C.N.P. - 07/07/2018 9:30 AM CDT Patient is reporting some more cramping over the past few days, on not at regular intervals. Good movement. No leaking of fluid or increase in vaginal discharge. Denies headache, vision changes, right upper quadrant pain, edema. Her induction of labor is discussed. She is scheduled for 07/14/2018. Membrane sweep today. documented in this encounter Plan of Treatment Not on filedocumented as of this encounter Visit Diagnoses Diagnosis 41 Weeks Gestation (HCC) - Prim greyson documented in this encounter Care Teams Clerical And Administrative Workers Relationship Specialty Start Date End Date Unassigned, Pcp PCP - General Family Medicine 02/24/18 documented as of this encounter
--- OUTSIDE RECORDS SUMMARY | 2022-08-07 10:37 | XMS_ITS | Encounter Summary ---
:1995 Author Organization [facility] Address [address] [place] [address] Care Team Providers Name Role Phone Unassigned, Pcp Primary Care Provider Unavailable Reason for Visit Reason Comments Abdominal Pain Auth/Cert Specialty Diagnoses / Procedures Referred By Contact Refer red To Contact Diagnoses na Procedures na Referral ID Status Reason Start Date Expiration Date Visits Requ ested Visits Authorized [id number] 1 1 Encounter Details Date Type Department Care Team Description 05/04/2018 Hospital Encounter [facility], Raju, Beltran, Pain Epigastric [facility] [address] [place] [address] Social History Tobacco Use Types Packs/Day Years Used Date Smoking Tobacco: Never Smokeless Tobacco: Never Alcohol Use Standard Drinks/Week Comments No 0 (1 standard drink = 0.6 oz pure alcoho l) Sex Assigned at Date Recorded Female 07/07/2018 9:07 AM CDT documented as of this encounter Last Filed Vital Signs Vital Sign Reading Time Taken Comments Blood Pressure 119/61 05/04/2018 12:38 AM CDT Pulse - - Temperature 36.8 ??C (98.2 ??F) 05/04/2018 12:38 AM CDT Respiratory Rate - - Oxygen Saturation 20% 05/04/2018 12:38 AM CDT Inhaled Oxygen Concentration - - Weight - - Height - - Body Mass Index - - documented in this encounter Medications at Time of Discharge Medication Sig Dispensed Refills Start Date End Date Take 1 tablet by 0 jyofqny-igcfmulq-polf mouth daily. fumarate-FA (for_VINATE M) 27-1 mg per tablet raNITIdine (ZANTAC) 150 Take 1 tablet (150 180 tablet 3 10/201705/04/2019 mg tablet mg total) by mouth 2 (two) times a day. documented as of this encounter Progress Notes Devin Hall M.D., M.B.B.S. - 05/04/2018 1:55 AM CDT Subjective: Patient is a 22-year-old female at 30 weeks and 6 days gestation who is here with complaints of sudden onset upper and middle abdominal pain since 11:45 p.m. last night initially 10/10in intensity. She reported the pain was constant and awoke her from sleep. She denies gastric reflux. She still has her gallbladder. She had some nausea. Upon arrival to triage she noted that her pain was better and a 6/10. She denies any contractions, leaking or bleeding. She reports normal movements. She denies any recent intercourse. She denies any trauma to her abdomen. Her current is complicated by class 3 obesity (BMI 40.8) Objective: Blood pressure 119/61, temperature 36.8 ??C, temperature source Temporal, last menstrual period 09/30/2017, SpO2 (!) 20 %. General: No acute distress Abdomen: Epigastric tenderness noted. Remainder of abdomen soft nontender. Uterus soft nontender. Cervix: Closed thick and high Transvaginal ultrasound: Cervical length 4.23 cm, 3.90 cm, 3.82 cm Transabdominal ultrasound: Vertex, posterior fundal placenta (no signs of abruption), MVP 3.9 FHT: 145/mod zenaida/accel+/no decels [place]: 3- 4 minutes initially Assessment/Plan: 22-year-old female at 30 weeks and 6 days 1. Upper abdominal pain - Pain was getting better soon as the patient had arrived to triage. She reported it a 6/10. I gave her Zantac 150 mg orally. Since on the monitor I noted contractions every 3-4 minutes initially I dida labor workup. I collected group B Streptococcus, chlamydia gonorrhea, fibronectin, va ginitis and a urinalysis. Since the labor workup was negative with a long cervix I discardedthe cultures. I am sending a vaginitis and urinalysis. Bedside transabdominal ultrasound does not show any signs of placental abruption either. Her pain subsequent to the exam was is 0/10. I am not sure if this was an episode of gastritis or reflux that she experiences in the middle of the night. Since she is feeling better plan is to discharge patient. She has a follow-up appointment on 05/13/2018. - labor signs and symptoms reviewed including those of contractions, intermittent low back pain/pelvic pressure, leaking fluid, vaginal bleeding and or decreased movements. documented in this encounter Plan of Treatment Not on filedocumented as of this encounter Procedures Procedure Name Priority Date/Time Associated Comments Diagnosis VAGINITIS PANEL Routine 05/04/2018 2:26 AM Result s for this CDT procedure are i n the results section. IRIS MICROSCOPIC, U Routine 05/04/2018 1:45 AM Re sults for this CDT procedure are i n the results section. URINALYSIS WITH Routine 05/04/2018 1:45 AM Result s for this MICROSCOPIC IF CDT procedure are in INDICATED, U the results section. documented in this encounter Results Vaginitis Panel (05/04/2018 2:26 AM CDT) Patholo gist Method Time Signature Mara species, Negative Negative 05/04/2018 [facility] DNA 3:[address] [facility] Gardnerella Negative Negative 05/04/2018 [facility] vaginalis, DNA 3:[address] [facility] Trichomonas Negative Negative 05/04/2018 [facility] vaginalis, DNA 3:[address] [facility] Specimen Anatomical Collection Method Collection Time Receive d Time (Source) Location / / Volume Laterality Swab (Vagina) 05/04/2018 2:26 AM 05/04/20 18 2:35 CDT AM CDT Devin Tanner.B.B.S. LAB MICROBIOLOGY - GENERAL O RDERABLES Performing Organization Address City/State/ZIP Code Phon e Number [facility] [address] [place] [address] [facility] (ABNORMAL) Iris Microscopic, U (05/04/2018 1:45 AM CDT) P athologist Signature White Blood 4-10 /hpf 05/04/2018 [facility] Cells 3:02 AM CDT [facility] Comment: ----REFERENCE VALUE---- Males: 0-3 Females: 0-10 Unknown: 0-10 Red Blood Cells Occ-2 0 - 2 /hpf 05/04/2018 3:02 AM CDT [facility] Squamous Cells 4-10 /hpf 05/04/2018 3:02 AM CDT [facility] Bacteria Present (A) None Seen 05/04/2018 3:02 AM CDT [facility] Specimen Anatomical Collection Method Collection Time Receive d Time (Source) Location / / Volume Laterality Urine 05/04/2018 1:45 AM 8 2:35 CDT AM CDT Devin Hunt LAB URINE ORDERABLES Performing Organization Address City/State/ZIP Code Phon e Number [facility] [address] [place] [address] [facility] (ABNORMAL) Urinalysis with Microscopic if Indicated (05/04/2018 1:45 AM CDT) Analysis Performed At Path logist Time Signature Source Midstream 05/04/2018 [facility] 3:02 AM T [facility] Clarity Slightly Clear 05/04/2018 [facility] Cloudy (A) 3:02 AM T [facility] Color Yellow 05/04/2018 [facility] 3:02 AM T [facility] Comment: ----REFERENCE VALUE---- Colorless Yellow Evangelina Blood Negative Negative 05/04/2018 3:02 AM CDT [facility] Nitrite, U Negative Negative 05/04/2018 3:02 AM CDT [facility] Leukocyte Esterase Large (A) Negative 05/04/2018 3:02 A M CDT [facility] Protein, U Negative mg/dL 05/04/2018 3:02 AM CDT [facility] Comment: ----REFERENCE VALUE---- Negative Trace Glucose Negative Negative mg/dL 05/04/2018 3:02 AM CDT [facility] Ketone Negative Negative mg/dL 05/04/2018 3:02 AM CDT [facility] Bilirubin Negative Negative 05/04/2018 3:02 AM CDT [facility] pH 7.0 5.0 - 8.0 05/04/2018 3:02 AM CDT [facility] Specific [place] 1.008 1.001 - 1.035 05/04/2018 3:02 AM CDT [facility] Urobilinogen 0.2 0.2 - 1.0 05/04/2018 3:02 AM CDT [facility] Specimen Anatomical Collection Method Collection Time Receive d Time (Source) Location / / Volume Laterality Urine (Urine, 05/04/2018 1:45 AM 05/04/20 2:35 Clean Catch) CDT AM CDT Devin Hunt LAB URINE ORDERABLES Performing Organization Address City/State/ZIP Code Phon e Number [facility] [address] [place] [address] [facility] documented in this encounter Visit Diagnoses Diagnosis Pain Epigastric documented in this encounter Administered Medications Inactive Administered Medications - up to 3 most recent administrations Medication Order MAR Action Action Date Dose Rate Site raNITIdine tablet 150 mg (ZANTAC) Given 05/04/2018 1:22 AM CDT 150 mg 150 mg, oral, Once, On Wed05/04/18 at 0115, For 1 dose, Drug Monitoring Program: Pharmacist to adjust medication order based on comorbities and indication. documented in this encounter Active and Recently Administered Medications Times are shown in CDT. Scheduled Medication Order 05/02/2018 05/03/2018 05/04/2018 raNITIdine tablet 150 mg (ZANTAC) (COMPLETED) 0122 (Given - Provider: Esperanza Anderson R.N.) 150 mg, oral, Once, On Wed05/04/18 at 011 5, For 1 dose, Drug Monitoring Program: Pharmacist to adjust medication order based on comorbities and indication. documented in this encounter Care Teams Flight Attendant Ramp Relationship Specialty Start Date End Date Unassigned, Pcp PCP - General Family Medicine 02/24/18 documented as of this encounter
--- OUTSIDE RECORDS SUMMARY | 2022-08-07 10:37 | XMS_ITS | Encounter Summary ---
:1995 Author Organization [facility] Address [address] [place] [address] Care Team Providers Name Role Phone Unassigned, Pcp Primary Care Provider Unavailable Reason for Visit Reason Comments Cough Encounter Details Date Type Department Care Team Description 06/26/2019 Office Visit Urgent Care in [facility] Kirill Carranza, Cough (Primary Dx) [place], [place] P.A.-C. [address] [facility] [address] [place] [address] [place], [place] [phone] (Wo rk) Social History Tobacco Use [...] ??F) 06/26/2019 2:31 PM CDT Respiratory Rate - - Oxygen Saturation 98% 06/26/2019 2:31 PM CDT Inhaled Oxygen Concentration - - Weight 95 kg (209 lb 7 oz) 06/26/2019 2:31 PM CDT Height - - Body Mass Index 35.76 11/13/2016 11:23 AM TILE SETTER documented in this encounter Progress Notes Kirill Carranza, P.A.-C. - 06/26/2019 2:50 PM CDT SUBJECTIVE HISTORY OF PRESENT ILLNESS Brie Lewis is a 23 y.o. female with moderate cough which has been present for 3 weeks. Admits that cough is somewhat productive. Symptoms are associated with: rhinorrhea, sore throat. Symptoms continue to worsen despite the use of over the counter medication. Pt denies fever, chills, night sweats, facial pain, chest pain, dyspnea, wheezing. She denies smoking history. ALLERGIES/CONTRAINDICATIONS Allergies Allergen Reactions ??? Banana GI intolerance Raw banana. Severe stomach pain MEDICAL HISTORY Past Medical History: Diagnosis Date ??? Renal Disease ??? Stone Kidney ??? Varicella chicken pox and shingles OBJECTIVE VITAL SIGNS Vitals: 06/26/19 1431 BP: 126/81 Pulse: 77 Temp: 37.4 ??C SpO2: 98% PHYSICAL EXAMINATION General: Pleasant, sitting in exam room in no apparent distress. Ears: Nontender to palpation, normal TMs and canals. Throat: Mild posterior erythema, no exudate or lesions. Neck: Supple without any adenopathy. Sinus: Nontender to palpation. Cardiac: Regular rate and rhythm, without murmur, rubs or gallops. Lungs: Inspiratory rhonchi with expiratory wheeze heard in the right upper lobe. Dx Chest Ap Or Pa And Lateral 2 Views Result Date: 06/26/2019 Impression: No focal pneumonia. ASSESSMENT / PLAN #1 Cough - DX Chest AP or PA and Lateral 2 Views; Future; Expected date: 06/26/2019 Other orders - azithromycin (ZITHROMAX) 250 mg tablet; Take 2 tabs (500 mg) by mouth today, then 1 tab (250 mg) daily for 4 days., Normal - benzonatate (TESSALON PERLES) 100 mg capsule; Take 1 capsule (100 mg total) by mouth 3 (three) times a day as needed for cough for up to 10 days., Starting 06/26/2019, Until Janeth 07/06/2019, Normal Cough for 3 weeks. X-rays did not show a focal pneumonia, however did hear inspiratory rhonchi with expiratory wheeze in the right upper and lower lobe, so I will treat for pneumonia. - azithromycin 500 mg now, followed by 250 daily x 4 days Tessalon perles The side effects of the medication have been discussed and patient showed verbal understanding. Albuterol inhaler discussed. Patient will follow up if symptoms worsen or fail to improve. documented in this encounter Plan of Treatment Not on filedocumented as of this encounter Results DX Chest AP or [...] upper abdomen. IMPRESSION: No focal pneumonia. Kirill Carranza P.A.-C. IMG DIAGNOSTIC IMAGING [facility] NGUYEN documented in this encounter Visit Diagnoses Diagnosis Cough Unspecified Type - Primary Cough Unspecified Type documented in this encounter Care Teams Tankroom Worker Relationship Specialty Start Date End Date Unassigned, Pcp PCP - General Family Medicine 02/24/18 documented as of this encounter
--- OUTSIDE RECORDS SUMMARY | 2022-08-07 10:37 | XMS_ITS | Encounter Summary ---
:1995 Author Organization [facility] Address [address] [place] [address] Care Team Providers Name Role Phone Unassigned, Pcp Primary Care Provider Unavailable Reason for Visit Reason Comments incision check Outpatient (Routine) - Closed Specialty Diagnoses / Procedures Referred By Contact Refer red To Contact Obstetrics and Diagnoses 41 Weeks Gestation ([facility]) Section Delivery ([facility]) Jonas Buck M.D. [facility] Gynecology [address] , [facility] [address] [place] [address] Referral ID Status Reason Start Date Expiration Date Visits Requ ested Visits Authorized [id number] Closed 07/18/2018 07/18/2019 1 1 Encounter Details Date Type Department Care Team Description 07/21/2018 Office Visit Department of Jonas Buck, Follow Up Ex amination Postoperative Visit (Primary Dx); Obstetrics and M.D. 41 Weeks Gestation ; Gynecology in [facility] [address] Cesarea n Section Delivery ([facility]) [facility], [facility] [address] [place] [address], [place] [address] [place] [phone] (Work) [phone] Social History Tobacco Use Types Packs/Day Years Used Date Smoking Tobacco: Never Smokeless Tobacco: Never Alcohol Use Standard Drinks/Week Comments No 0 (1 standard drink = 0.6 oz pure alcoho l) Sex Assigned at Date Recorded Female 07/07/2018 9:07 AM CDT documented as of this encounter Last Filed Vital Signs Vital Sign Reading Time Taken Comments Blood Pressure 122/70 07/21/2018 12:55 PM CDT Pulse - - Temperature - - Respiratory Rate - - Oxygen Saturation - - Inhaled Oxygen Concentration - - Weight 107 kg (235 lb 7.2 oz) 07/21/2018 12:55 PM CDT Height - - Body Mass Index 40.2 11/13/2016 11:23 AM BANKING SERVICES CLERK documented in this encounter Progress Notes Jonas Buck M.D. - 07/21/2018 1:00 PM CDT Inspector Paper Products postoperative follow-up Patient 1 week status post primary section. She is doing well at home. She is eating ambulating and voiding without difficulty. She has mild lochia. She has no fevers or chills. She is passing flatus and has had normal bowel movements. On exam her incision is clean dry and intact. The bandage was removed. Impression and plan: Stable postoperative check Recommend increase activity diet as tolerated and return office for 6 week follow-up. documented in this encounter Plan of Treatment Not on filedocumented as of this encounter Visit Diagnoses Diagnosis Follow Up Examination Postoperative Visi t - Primary 41 Weeks Gestation (HCC) Section Delivery (HCC) documented in this encounter Care Teams Miller Distillery Relationship Specialty Start Date End Date Unassigned, Pcp PCP - General Family Medicine 02/24/18 documented as of this encounter
--- OUTSIDE RECORDS SUMMARY | 2022-08-07 10:37 | XMS_ITS | Encounter Summary ---
:1995 Author Organization [facility] Address [address] [place] [address] Care Team Providers Name Role Phone Unassigned, Pcp Primary Care Provider Unavailable Encounter Details Date Type Department Care Team Description 07/05/2018 Orders Only Department of Jennifer Sargent, Care Postpar blue And Obstetrics and PHYSICIAN GENERAL PRACTICE, C.N.P. Lactating (HCC) Gynecology in [address] (Primary Dx) [address] [address] [place], [place] [phone] (Work) [phone] Social History Tobacco Use Types Packs/Day Years Used Date Smoking Tobacco: Never Smokeless Tobacco: Never Alcohol Use Standard Drinks/Week Comments No 0 (1 standard drink = 0.6 oz pure alcoho l) Sex Assigned at Date Recorded Female 07/07/2018 9:07 AM CDT documented as of this encounter Plan of Treatment Not on filedocumented as of this encounter Visit Diagnoses Diagnosis Care And Lactating - Primary documented in this encounter Care Teams Sound Recordist Relationship Specialty Start Date End Date Unassigned, Pcp PCP - General Family Medicine 02/24/18 documented as of this encounter
--- OUTSIDE RECORDS SUMMARY | 2022-08-07 10:37 | XMS_ITS | Encounter Summary ---
:1995 Author Organization [facility] Address [address] [place] [address] Care Team Providers Name Role Phone Unassigned, Pcp Primary Care Provider Unavailable Reason for Visit Auth/Cert Specialty Diagnoses / Procedures Referred By Contact Refer red To Contact Diagnoses NA Procedures NA Referral ID Status Reason Start Date Expiration Date Visits Requ ested Visits Authorized [id number] 1 1 Encounter Details Date Type Department Care Team Description 06/24/2018 Hospital Encounter [facility] Devin Hall, Encounter For Hospital, Bubba Hunt Supervisi on Of [facility], First Pregna ncy Third Floor Unspecified Trimester [address] [facility] [place] [address] Social History Tobacco Use Types Packs/Day Years Used Date Smoking Tobacco: Never Smokeless Tobacco: Never Alcohol Use Standard Drinks/Week Comments No 0 (1 standard drink = 0.6 oz pure alcoho l) Sex Assigned at Date Recorded Female 07/07/2018 9:07 AM CDT documented as of this encounter Last Filed Vital Signs Vital Sign Reading Time Taken Comments Blood Pressure 97/50 06/24/2018 11:30 AM CDT Pulse - - Temperature 37 ??C (98.6 ??F) 06/24/2018 10:03 AM CDT Respiratory Rate 16 06/24/2018 10:03 AM CDT Oxygen Saturation - - Inhaled Oxygen Concentration - - Weight - - Height - - Body Mass Index - - documented in this encounter Medications at Time of Discharge Medication Sig Dispensed Refills Start Date End Date Take 1 tablet by 0 qucymlw-nkomlkgr-kiee mouth daily. fumarate-FA (for_VINATE M) 27-1 mg per tablet raNITIdine (ZANTAC) 150 Take 1 tablet (150 180 tablet 3 10/201705/04/2019 mg tablet mg total) by mouth 2 (two) times a day. documented as of this encounter Progress Notes Ernie Turner M.D. - 06/24/2018 11:42 AM CDT [facility] System: [facility] Triage Note Obstetrics and Gynecology Name: Brie Lewis : 1995 Assessment: 22 y.o. @ 38w1d with elevated blood pressures, now resolved status: FHR Category I, Reactive NST Plan: Elevated Bps: normal over 2 hours, patient asymptomatic, no GHTN or Pre-E, per protocol home now with routine care. Reviewed warning signs labor and Pre-E Ernie Turner M.D. 06/24/2018 CC: Elevated BPs HPI: Brie Lewis is a 22 y.o. @ 38w1d by LMP c/w 8w0 ultrasound presents with elevated Bps, was seen in clinic today and had BP 140/90, sent to L&D for further evaluation. Patient denies chest pain, shortness of breath, nausea, vomiting, diarrhea, dysuria, fever, dizziness, weakness, increased swelling. Denies headaches, blurriness or spots in vision, epigastric or RUQ abdominal pain. No VB, LOF, normal movement. uncomplicated. ROS: A 10 point review of systems was negative except as noted in HPI. Prescriptions Prior to Admission Medication Sig Dispense Refill Last Dose ??? kavgqtb-uktxmtdy-sovr fumarate-FA (for_VINATE M) 27-1 mg per tablet Take 1 tablet by mouth daily. Taking ??? raNITIdine (ZANTAC) 150 mg tablet Take 1 tablet (150 mg total) by mouth 2 (two) times a day. 180tablet 3 Taking Allergies Allergen Reactions ??? Banana GI intolerance Raw banana. Severe stomach pain Past Medical History: Diagnosis Date ??? Stone Kidney as a child ??? Varicella chicken pox and shingles No past surgical history on file. Family History Problem Relation Age of Onset ??? Cervical cancer Mother ??? Cancer Maternal Grandfather ??? Hypertension Maternal Grandfather ??? Heart attack Maternal Grandfather Social History Substance Use Topics ??? Smoking status: Never Smoker ??? Smokeless tobacco: Never Used ??? Alcohol use No Physical exam: BP (!) 97/50 Temp 37 ??C (Temporal) Resp 16 LMP 09/30/2017 (LMP Unknown) Constitutional: comfortable in bed, NAD Cardiovascular: Heart regular rate and rhythm, pulses 2+ Pulmonary: breathing unlabored, easily conversant Gastrointestinal: Abdomen gravid, soft, non-tender. BS normal. No masses, organomegaly Musculoskeletal: LE nontender, 1+ edema Neurologic: Reflexes 2+ in UE and LE, no clonus Heart Rate Tracin baseline Variability: moderate Accelerations: present Decelerations: none Duration: 120 minutes Tocometer: none documented in this encounter Procedure Notes Esperanza Anderson R.N. - 06/24/2018 11:33 AM CDTAssociated Order(s): NONSTRESS TEST - FELTON Reactive NST. Occas. Contractions noted; however, patient does not feel them. documented in this encounter Plan of Treatment Not on filedocumented as of this encounter Procedures Procedure Name Priority Date/Time Associated Diagnosis Comme nts NONSTRESS Routine 06/24/2018 11:33 AM Resul ts for this TEST - FELTON CDT procedure a re in the results section. documented in this encounter Results nonstress test - felton (06/24/2018 11:33 AM CDT) Narrative Esperanza Anderson R.N. - 06/24/2018 11:3 3 AM CDT Esperanza Anderson R.N. ? 06/24/2018 11:35 AM Reactive NST. Occas. Contractions noted; however, abebe ent does not feel them. Devin Hunt OB GYNE ORDERABLES documented in this encounter Visit Diagnoses Diagnosis Elevated Blood Pressure Without Hyperten karel - Primary Encounter For Supervision Of Normal Firs t Unspecified Trimester (HCC) Encounter For Supervision Of Normal Firs t Unspecified Trimester (HCC) documented in this encounter Care Teams Incinerator Attendant Relationship Specialty Start Date End Date Unassigned, Pcp PCP - General Family Medicine 02/24/18 documented as of this encounter
--- OUTSIDE RECORDS SUMMARY | 2022-08-07 10:37 | XMS_ITS | Encounter Summary ---
:1995 Author Organization [facility] Address [address] [place] [address] Care Team Providers Name Role Phone Unassigned, Pcp Primary Care Provider Unavailable Encounter Details Date Type Department Care Team Description 07/13/2018 Orders Only Department of Obstetrics and [facility], Zo whittakera, MUSIC ENGRAVER, Gynecology in [place], WIN, M.S.N., B.S. N., [facility] [address] [place] [address] [address] [place] [address] [place] [address] [phone] Social History Tobacco Use Types Packs/Day Years [...] on filedocumented in this encounter Care Teams Putty Patcher Relationship Specialty Start Date End Date Unassigned, Pcp PCP - General Family Medicine 02/24/18 documented as of this encounter
--- OUTSIDE RECORDS SUMMARY | 2022-08-07 10:37 | XMS_ITS | Encounter Summary ---
:1995 Author Organization [facility] Address [address] [place] [address] Care Team Providers Name Role Phone Unassigned, Pcp Primary Care Provider Unavailable Reason for Visit Reason Onset Date Comments Med Refill 07/04/2018 breast pump Encounter Details Date Type Department Care Team Description 07/04/2018 Clinical Communication Department of Jennifer Sargent Me d Refill (breast Obstetrics and HALL MONITOR, C.N.P. pump) Gynecology in [address] [phone] Social History Tobacco Use Types Packs/Day Years Used Date Smoking Tobacco: Never Smokeless Tobacco: Never Alcohol Use Standard Drinks/Week Comments No 0 (1 standard drink = 0.6 oz pure alcoho l) Sex Assigned at Date Recorded Female 07/07/2018 9:07 AM CDT documented as of this encounter Miscellaneous Notes Telephone Encounter - Brenda Cortes - 07/04/2018 11:58 AM CDT Dear Jennifer Sargent Rod Joshua would like a breast pump RX sent to: [facility] Home Delivery ph. [phone] Fax. [phone] Brenda Suarez Appt Services documented in this encounter Plan of Treatment Not on filedocumented as of this encounter Visit Diagnoses Not on filedocumented in this encounter Care Teams Shop Girl Relationship Specialty Start Date End Date Unassigned, Pcp PCP - General Family Medicine 02/24/18 documented as of this encounter
--- OUTSIDE RECORDS SUMMARY | 2022-08-07 10:37 | XMS_ITS | Encounter Summary ---
:1995 Author Organization [facility] Address [address] [place] [address] Care Team Providers Name Role Phone Unassigned, Pcp Primary Care Provider Unavailable Reason for Visit Reason Comments Decreased Movement Encounter Details Date Type Department Care Team Description 07/01/2018 Hospital Encounter [facility] Devin Hall, 39 Weeks Gestation [facility], Third Floor [address] [place] [address] Social History Tobacco Use Types Packs/Day Years Used Date Smoking Tobacco: Never Smokeless Tobacco: Never Alcohol Use Standard Drinks/Week Comments No 0 (1 standard drink = 0.6 oz pure alcoho l) Sex Assigned at Date Recorded Female 07/07/2018 9:07 AM CDT documented as of this encounter Last Filed Vital Signs Vital Sign Reading Time Taken Comments Blood Pressure 123/74 07/01/2018 8:09 PM CDT Pulse - - Temperature 36.5 ??C (97.7 ??F) 07/01/2018 8:09 PM CDT Respiratory Rate 18 07/01/2018 8:09 PM CDT Oxygen Saturation - - Inhaled Oxygen Concentration - - Weight - - Height - - Body Mass Index - - documented in this encounter Discharge Instructions Discharge InstructionsFlNikki munguia R.N. - 07/01/2018 10:01 PM CDT Images from the original note were not included. Monitoring Your Baby???s Movements Introduction One way to monitor the health of your baby is to be aware of his or her movements (such as kicks, rolls, stretches, flutters, turns and flips). Starting around the 28th week of your , you should monitor your baby???s daily movements. If you notice that your baby moves a lot throughout the day, no other monitoring is necessary. If you are unaware of your baby???s movements throughout the day,do the following. How to monitor your baby???s movements Pick a time during the day to count your baby???s movements. After a meal is a good time because your baby is likely to be more active after you have eaten. If you cannot do this after a meal, drink a glass of juice or other beverage containing sugar or eat something before you begin monitoring. Choose a quiet place where you can concentrate on your baby???s movements without being distracted. Look at a clock and note the time. Lie on your left side, and place your right hand on your abdomen to help you feel the movements. Count how many times your baby moves. If there are a lot of movements all at once, count each movement that you feel. Once you have felt 10 movements, note the time. Call your health care provider right away for further instructions if you: ?? Do not feel 10 movements in two hours. ?? Think your baby is taking much longer than usual to move 10 times. ?? Notice a significant decrease in the frequency of your baby???s activity. You may need to come to the clinic or hospital for testing and monitoring. Using a monitoring record Your health care provider may instruct you to use the following chart when you monitor your baby???smovement. Follow these steps when using the chart. 1. Write the date on the chart. 2. Write the time that you start counting. 3. Put a tally or check geronimo under the movement count column each time your baby moves. 4. After your baby has moved 10 times, write the time of the 10th movement under the finish time column. 5. If two hours have passed and you have not felt 10 movements, call your health care provider rightaway for further instructions. Table 1 Date Start time Movement count Finish time This material is for your education and information only. This content does not replace medical advice, diagnosis or treatment. New medical research may change this information. If you have questions about a medical condition, always talk with your health care provider. ? 2003 [employer] ([employer]). All rights reserved. [id number] documented in this encounter Medications at Time of Discharge Medication Sig Dispensed Refills Start Date End Date Take 1 tablet by 0 bqouism-tifaqfsc-pbel mouth daily. fumarate-FA (for_VINATE M) 27-1 mg [...] of this encounter Progress Notes Devin Hall M.B.B.S. MLv - 07/01/2018 10:20 PM CDT Subjective: Patient is a 22-year-old female at 39 weeks and 2 days gestation who is here for decreased movements since today morning. She denies any regular contractions, leaking or vaginal bleeding. She reports normal movement up until today. She does note that since she has come to triage she has started to feel the baby move again. Objective: Blood pressure 123/74, temperature 36.5 ??C, temperature source Temporal, resp. rate 18, last menstrual period 09/30/2017, not currently . General: No acute distress Abdomen: Soft nontender, gravid uterus nontender Pelvic exam: Deferred Bedside sent: Vertex, [place] intrauterine , posterior placenta, MVP 4.3, biophysical profile 05/11 NST: 135, moderate variability, accelerations +, no decelerations; Reactive Assessment/Plan: 1. Decreased movement- resolved - Patient has been feeling baby move since she came to triage - Ultrasound Biophysical profile 05/11, NST category 1 - Reviewed kick counts - Okay to discharge the patient home, labor precautions given - FU with next scheduled appointment documented in this encounter Nursing Notes Nikki Becker R.N. - 07/01/2018 10:20 PM CDT Patient left ambulatory at this time. AVS given. documented in this encounter Plan of Treatment Not on filedocumented as of this encounter Visit Diagnoses Diagnosis 39 Weeks Gestation (HCC) documented in this encounter Care Teams Measurement Specialist Relationship Specialty Start Date End Date Unassigned, Pcp PCP - General Family Medicine 02/24/18 documented as of this encounter
--- OUTSIDE RECORDS SUMMARY | 2022-08-07 10:37 | XMS_ITS | Encounter Summary ---
:1995 Author Organization [facility] Address [address] [place] [address] Care Team Providers Name Role Phone Unassigned, Pcp Primary Care Provider Unavailable Encounter Details Date Type Department Care Team Description 07/20/2018 Encounter Social History Tobacco Use Types Packs/Day Years Used Date Smoking Tobacco: Never Smokeless Tobacco: Never Alcohol Use Standard Drinks/Week Comments No 0 (1 standard drink = 0.6 oz pure alcoho l) Sex Assigned at Date Recorded Female 07/07/2018 9:07 AM CDT documented as of this encounter Miscellaneous Notes Note - Saarh Demarco R.N. - 07/20/2018 10:00 AM CDT This note was copied from a baby's chart. 5 day old here for weight/TcB check. Today's weight 7#10oz. Up 1.5 oz. From discharge, -6% loss frombirth. Tcb today 6.7, low risk zone. Baby has had several yellow stools, several voids last 24 hours. Mom has switched to pumping and bottle feeding. Pumping every 2-3 hours, 1.5-3 oz. Baby taking 1-5-2 oz. Every 2-3 hours. Mom wanting to gradually start pumping only 3-4 times per day, supplementing prn with formula. Discussed gradually transitioning to avoid clogged ducts/mastitis. Discussed formulaprep/administration, encouraged paced bottle feeding. Nipples much more comfortable with pumping, using hydrogels for tenderness. Encouraged to gradually increase volumes to 2-2.5 oz. Every 2-3 hours via bottle. Plans on attending [employer] class next week for weight check. documented in this encounter Plan of Treatment Not on filedocumented as of this encounter Visit Diagnoses Not on filedocumented in this encounter Care Teams Academic Program Specialist Relationship Specialty Start Date End Date Unassigned, Pcp PCP - General Family Medicine 02/24/18 documented as of this encounter
--- OUTSIDE RECORDS SUMMARY | 2022-08-07 10:37 | XMS_ITS | Encounter Summary ---
:1995 Author Organization [facility] Address [address] [place] [address] Care Team Providers Name Role Phone Unassigned, Pcp Primary Care Provider Unavailable Reason for Visit Reason Comments Routine Visit Outpatient (Routine) - Closed Specialty Diagnoses / Procedures Referred By Contact Refer red To Contact Obstetrics and Jennifer Sargent, MARIA LUISA, [facility] Gynecology C.N.P. [address] [place] [address] Referral ID Status Reason Start Date Expiration Date Visits Requ ested Visits Authorized [id number] Closed 05/13/2018 05/13/2019 1 1 Encounter Details Date Type Department Care Team Description 06/17/2018 Routine Department of Jennifer Sargent Examinat ion Obstetrics and OPTICAL SYSTEMS ENGINEER, C.N.P. Normal First Gynecology in [facility] [address] [place], [place] Trimester (Primary [address] [address] Dx) [place], [place] [phone] (Work) [phone] Social History Tobacco Use Types Packs/Day Years Used Date Smoking Tobacco: Never Smokeless Tobacco: Never Alcohol Use Standard Drinks/Week Comments No 0 (1 standard drink = 0.6 oz pure alcoho l) Sex Assigned at Date Recorded Female 07/07/2018 9:07 AM CDT documented as of this encounter Last Filed Vital Signs Vital Sign Reading Time Taken Comments Blood Pressure 130/80 06/17/2018 9:02 AM CDT Pulse - - Temperature - - Respiratory Rate - - Oxygen Saturation - - Inhaled Oxygen Concentration - - Weight 111 kg (245 lb 6 oz) 06/17/2018 9:02 AM CDT Height - - Body Mass Index 41.89 11/13/2016 11:23 AM AIRCRAFT ENGINE SPECIALIST documented in this encounter Progress Notes Jennifer Sargent APRN, C.N.P. - 06/17/2018 9:15 AM CDT Patient is feeling well today. No concerns. Good movement. No contractions. Some minor back pain. GBS was negative. documented in this encounter Plan of Treatment Not on filedocumented as of this encounter Visit Diagnoses Diagnosis Examination Normal First Pregna ncy Third Trimester (HCC) - Primary documented in this encounter Care Teams Hogshead Stock Clerk Relationship Specialty Start Date End Date Unassigned, Pcp PCP - General Family Medicine 02/24/18 documented as of this encounter
--- OUTSIDE RECORDS SUMMARY | 2022-08-07 10:37 | XMS_ITS | Encounter Summary ---
:1995 Author Organization [facility] Address [address] [place] [address] Care Team Providers Name Role Phone Unassigned, Pcp Primary Care Provider Unavailable Reason for Referral Outpatient (Routine) - Closed Specialty Diagnoses / Procedures Referred By Contact Refer red To Contact Obstetrics and Diagnoses 41 Weeks Gestation (HCC) Section Delivery (HCC) Jonas Buck M.D. [facility] [address] , [facility] [address] [place] [address] Referral ID Status Reason Start Date Expiration Date Visits Requ ested Visits Authorized [id number] Closed 07/18/2018 07/18/2019 1 1 utpatient (Routine) - Closed Specialty Diagnoses / Procedures Referred By Contact Refer collin To Contact Obstetrics and Jonas Buck M.D. [facility] Gynecology [address] , [address] [place] [address] Referral ID Status Reason Start Date Expiration Date Visits Requ ested Visits Authorized [id number] Closed 07/18/2018 07/18/2019 1 1 Reason for Visit Reason Comments Scheduled Induction Auth/Cert Specialty Diagnoses / Procedures Referred By Contact Refer collin To Contact Diagnoses 41 Weeks Gestation (HCC) Procedures NA Referral ID Status Reason Start Date Expiration Date Visits Requ ested Visits Authorized [id number] 1 1 Encounter Details Date Type Department Care Team Description 07/14/2018 - Hospital Encounter [facility] [place], Section Delivery (HCC) (Primary Dx); 07/18/2018 [facility] MARIA LUISA Ocampo, 41 Weeks Gestation [facility], WIN, M.S.N., Third Floor B.S.N., R.N. [address] [facility] [address] [place], [place] [id number] [phone] Social History Tobacco Use Types Packs/Day Years Used Date Smoking Tobacco: Never Smokeless Tobacco: Never Alcohol Use Standard Drinks/Week Comments No 0 (1 standard drink = 0.6 oz pure alcoho l) Sex Assigned at Date Recorded Female 07/07/2018 9:07 AM CDT documented as of this encounter Last Filed Vital Signs Vital Sign Reading Time Taken Comments Blood Pressure 130/81 07/18/2018 9:49 AM CDT Pulse 85 07/15/2018 8:19 PM CDT Temperature 36.7 ??C (98.1 ??F) 07/18/2018 9:49 AM CDT Respiratory Rate 16 07/18/2018 9:49 AM CDT Oxygen Saturation 100% 07/15/2018 11:00 PM CDT Inhaled Oxygen Concentration - - [...] Case IDs Date Procedure Surgeon Location Status [id number] 07/15/18 SECTION Jonas Buck M.D. [facility] OR Comp Review the Delivery Report for details. GA: 41w1d GP: Risk Factors: Other Obstetric Procedures this : None Labor Complications: Failure to Progress in First Stage Delivery Details: 07/15/2018 6:40 PM with Apgars of 9 and 9 . Delivery Type: , Low Transverse Lacerations: Yocasta Lewis [[id number]] Delivery (Maternal) Weight: 3.67 kg Feeding Method: breast Rh [...] 07/25/2018 1:00 PM OBG RN NURSE 01 [facility] TESFAYE CFERWZ 08/26/2018 10:00 AM Jennifer Sargent APRN, C.N.P. [facility] TESFAYE CFERNadineZ Problem List * (Principal)41 Weeks Gestation Encounter For Supervision Of Normal First Unspecified Trimester Pain Epigastric Complication Obesity Body Mass Index 30 To 40 Initial visit bmi 38 Discharge instructions were provided to the patient and caregivers. Return to clinic in 1 week for postop follow-up and incision check. Jonas Buck M.D. documented in this encounter Discharge Instructions Discharge InstructionsPortia Mullins RDenniseN. - 07/18/2018 8:46 AM CDT Discharge education completed. Education materials provided and reviewed: ??? Feeding your baby the first year ([id number]) ??? Caring for yourself after Giving ([id number]) ??? Caring for your ([id number]) ??? Keeping your safe ([id number]) ??? Beyond classes/ services ([id number]) ??? Shaken Baby Syndrome ??? Patient online services ([id number]) ??? Period of purple crying video ??? [place] Oximetry screening/hearing screening/ screening ([id number]) ??? Carseat safety ([id number]) ??? Safe crib ([id number]) ??? Community resources/phone numbers ([id number]) ??? Circumcision pamphlet if applicable ([id number]) ??? Baby's Second Night ([id number]) ??? Managing your pain ([id number]) documented in this encounter Medications at Time of Discharge Medication Sig Dispensed Refills Start Date End Date Take 1 tablet by 0 tmgxsvr-lynpranw-irum mouth daily. fumarate-FA (for_VINATE M) 27-1 mg [...] dressing clean, dry, intact Occurences INFANT STATUS Infant sex: Information for the patient's : Yocasta Lewis [[id number]] female Infant name: Information for the patient's : Yocasta Lewis [[id number]] Yocasta Lewis Infant room: Information for the [...] Weight change: I/O 07/15 701 - 07/16 0700 07/16 07 - 07/17 0700 07/17 701 - 07/18 0700 P.O. 90 Maintenance IV 1500 Continuous Medications 200 Total Intake 1790 Urine 900 1150 Blood 1539 Total Output 2439 1150 Net -649 -1150 PHYSICAL EXAM Constinutional: no complaints Respiratory: normal expansion, clear to auscultation Cardiovascular: regular rate and rhythm Abdomen: soft, nontender and Bowel sounds present x4 quadrants Incision: dressing clean, dry, intact Extremities: 1+ edema Occurences INFANT STATUS Infant sex: Information for the patient's [...] 38 Jonas Buck M.D. Eddie Rodriguez APRN, CRNA, D.N.P. - 07/16/2018 1:05 PM CDT Post [...] none apparent Clinical signs or symptoms of PACK TRAIN DRIVER toxicity (during this admission): none Does patient [...] Weight change: I/O 07/14 701 - 07/15 0707/15 - 07/16 0707/16 - 07/17 0700 P.O. 90 Maintenance IV [...] for injury to bladder bowel or ureter. Jonas Buck M.D. - 07/15/2018 3:15 PM [...] bleeding or leakage. heart rate--category 1, good qxuy-bq-oluf variability, baseline 140s, accelerations present. Cervix 1 cm dilation, 40% effaced, -2 station, cephalic, intact bag of water. Options reviewed and at this point the patient desires to proceed with the Cervidil for cervical ripening effects and follow for labor progression/cervical ripening effect./be documented in this encounter H&P Notes Damaris Houston APRN, WIN - 07/14/2018 7:52 AM CDT SUBJECTIVE REASON [...] HCT 33.1 (L) 04/15/2018 PLT 233 04/15/2018 [id number] 120 04/15/2018 HEPBSAG Nonreactive 11/26/2017 [id number] Negative 11/26/2017 GRPBSTREP Negative 06/10/2018 ASSESSMENT / PLAN Problem List * (Principal)41 Weeks Gestation Encounter For Supervision Of Normal First Unspecified Trimester Pain Epigastric Complication Obesity Body Mass Index 30 To 40 Initial visit bmi 38 Obesity class 3 (bmi >40) at term Admit to Labor and Delivery for routine intrapartum care; Consult Anesthesia cytotec per protocol Pitocin as needed Damaris Houston APRN, ROBSON documented in this encounter Nursing Notes Joanie [...] and happy that she had a c/s. T Esperanza Anderson R.N. - 07/16/2018 3:22 AM CDT Postop recovery uneventful. Bonding with infant, loving and attentive to infant needs. Enjoying skinto skin contact with baby. Breast feeding going well. Anticipate normal postop/ recovery/progress. First baby, assessment, intervention, teaching, as per education plan. documented in this encounter Miscellaneous Notes Note - Linda Tenorio R.N., I.BDenniseCDenniseLDenniseC. - 07/17/2018 9:00 AM CDT This note [...] First Stage Delivery Type: , Low Transverse Weight: 3670 g 1 Minute 5 Minute [...] she is not independent with that yet. Infant Assessment State: Quiet Suck: Rhythmic, Mature suck: [...] LATCH Score: 7 Input: 9 feedings/24 hours Output: 3 voids/24 hours, Urine Color: Straw-yellow [...] daily on [facility] rounds. Linda Tenorio R.N., I.B.C.L.C. Note - Sarah Demarco R.N. - 07/16/2018 8:15 AM CDT This note was copied from a baby's chart. SUBJECTIVE Girl Brie Lewis, at 1 days old of age, was seen for a Consultation. Consultation Reason for Consult: Initial assessment OBJECTIVE Delivery Details: Risk Factors: Other Obstetric Procedures-This : None Labor Complications: Failure to Progress in First Stage Delivery Type: , Low Transverse Weight: 3670 g 1 Minute 5 Minute [...] of baby: Spouse, living together Infant Assessment Infant State: Sleepy Suck: Rhythmic, Mature suck: 10-20 [...] Score: 8 Infant Input: 3 feedings/24 hours Infant Output: 1 voids/24 hours, 2 stools/24 hours, [...] Delivery Note 07/15/2018 Brie Lewis 22 y.o. Joshua, Girl Brie [[id number]] Delivery Providers Delivering clinician: Jonas Buck M.D. Provider Role Ale Fair R.N. Delivery Nurse Joanie Aguilar R.N. Nursery Nurse Designer/Writer Review the Delivery Report for details. GA: 41w1d GP: GBS: Lab Results Component Value Date GRPBSTREP Negative 06/10/2018 Risk Factors: Other Other Risk Factors, if any: elevated bmi; 41.1 weeks ga Obstetric Procedures - This : None Labor Complications: EBL: 1500 mL Delivery Type: , Low Transverse ROM to Delivery Time: 7h 30m Sex: Female [place] Weight: 3.67 kg The patient is a [...] with Differential, Blood (07/17/2018 8:18 AM CDT) [facility] Method Time Signature Hemoglobin 8.3 (L) 11.6 - 07/17/2018 [facility] 15.0 g/dL 8:21 AM CDT [facility] [place] Hematocrit 25.4 (L) 35.5 - 07/17/2018 [facility] 44.9 % 8:21 AM CDT [facility] Erythrocytes 2.71 (L) 3.92 - 07/17/2018 [facility] 5.13 8:21 AM CDT [facility] x10(12)/L [facility] [place] MCV 93.7 78.2 - 07/17/2018 [facility] 97.9 fL 8:21 AM T [facility] [place] [facility] RBC Distrib Width 13.6 12.2 - 07/17/2018 [facility] 16.1 % 8:21 AM T [facility] Platelet Count 213 157 - 371 07/17/2018 [facility] x10(9)/L 8:21 AM T [facility] Leukocytes 11.7 (H) 3.4 - 9.6 07/17/2018 [facility] x10(9)/L 8:21 AM T [facility] Neutrophils 9.18 (H) 1.56 - 07/17/2018 [facility] 6.45 8:21 AM CDT [facility] x10(9)/L [facility] [place] [facility] Lymphocytes 1.61 0.95 - 07/17/2018 [facility] 3.07 8:21 AM CDT [facility] x10(9)/L [facility] [place] [facility] Monocytes 0.82 (H) 0.26 - 07/17/2018 [facility] 0.81 8:21 AM CDT [facility] x10(9)/L [facility] [place] [facility] Eosinophils 0.03 0.03 - 07/17/2018 [facility] 0.48 8:21 AM CDT [facility] x10(9)/L [facility] [place] [facility] Basophils 0.03 0.01 - 07/17/2018 [facility] 0.08 8:21 AM CDT [facility] x10(9)/L [facility] [place] [facility] Specimen Anatomical Collection Method Collection Time Receive d Time (Source) Location / / Volume Laterality Blood (Blood, 07/17/2018 8:18 AM 07/17/20 18 8:18 Venous) CDT AM CDT Jonas Buck M.D. LAB BLOOD ADD-ON Performing Organization Address City/State/ZIP Code Phon e Number [facility] [address] [facility] [place] [address] [place] [facility] (ABNORMAL) CBC with Differential (07/16/2018 7:04 AM CDT) [facility] Method Time Signature Hemoglobin 9.0 (L) 11.6 - 07/16/2018 [facility] 15.0 g/dL 7:22 AM T [facility] Hematocrit 27.9 (L) 35.5 - 07/16/2018 [facility] 44.9 % 7:22 AM CDT [facility] Erythrocytes 3.05 (L) 3.92 - 07/16/2018 [facility] 5.13 7:22 AM CDT [facility] x10(12)/L [facility] [place] [facility] MCV 91.5 78.2 - 07/16/2018 [facility] 97.9 fL 7:22 AM CDT [facility] RBC Distrib Width 13.2 12.2 - 07/16/2018 [facility] 16.1 % 7:22 AM CDT [facility] Platelet Count 232 157 - 371 07/16/2018 [facility] x10(9)/L 7:22 AM CDT [facility] Leukocytes 13.7 (H) 3.4 - 9.6 07/16/2018 [facility] x10(9)/L 7:22 AM CDT [facility] [place] Neutrophils 10.60 (H) 1.56 - 07/16/2018 [facility] 6.45 7:22 AM CDT [facility] x10(9)/[facility] [place] [facility] Lymphocytes 1.90 0.95 - 07/16/2018 [facility] 3.07 7:22 AM CDT [facility] x10(9)/[facility] [place] Monocytes 1.17 (H) 0.26 - 07/16/2018 [facility] 0.81 7:22 AM CDT [facility] x10(9)/[facility] [place] [facility] Eosinophils 0.02 (L) 0.03 - 07/16/2018 [facility] 0.48 7:22 AM CDT [facility] x10(9)/[facility] [place] [facility] Basophils 0.03 0.01 - 07/16/2018 [facility] 0.08 7:22 AM CDT [facility] x10(9)/[facility] [place] [facility] Specimen Anatomical Collection Method Collection Time Receive d Time (Source) Location / / Volume Laterality Blood (Blood, 07/16/2018 7:04 AM 07/16/20 18 7:20 Venous) CDT AM CDT Jonas Buck M.D. LAB BLOOD ADD-ON Performing Organization Address City/State/ZIP Code Phon e Number [facility] [address] [facility] [place] [address] [facility] Testing Location (07/14/2018 8:11 AM CDT) P athologist Signature Testing [facility] 07/14/2018 [facility] Location 8:14 AM CDT [facility] Specimen Anatomical Collection Method Collection Time Receive d Time (Source) Location / / Volume Laterality Blood 07/14/2018 8:11 AM 8 8:14 CDT AM CDT Damaris Houston APRN, CNM, M.S.N., B.S.N., R.N. LAB BLO OD BANK TEST ORDERABLES Performing Organization Address City/State/ZIP Code Phon e Number [facility] [address] [place] [address] [facility] Type and screen (07/14/2018 8:11 AM CDT) [facility] Method Time Signature ABO Group A 07/14/2018 [facility] 8:50 AM CDT [facility] Rh Type POS 07/14/2018 [facility] 8:50 AM CDT [facility] Antibody Screen NEG 07/14/2018 [facility] 8:51 AM CDT [facility] Type & Screen 07/17/2018 07/14/2018 [facility] Expiration 23:59 8:51 AM CDT [facility] ELXM Eligible Y 07/14/2018 [facility] 8:51 AM CDT [facility] Specimen Anatomical Collection Method Collection Time Receive d Time (Source) Location / / Volume Laterality Blood (Blood, 07/14/2018 8:11 AM 07/14/20 18 8:14 Venous) CDT AM CDT Damaris Houston APRN, CNM, M.S.N., B.S.N., R.N. LAB BLO OD BANK TEST ORDERABLES Performing Organization Address City/State/ZIP Code Phon e Number [facility] [address] [employer] [place] [address] [facility] (ABNORMAL) CBC without Differential (07/14/2018 8:11 AM CDT) [facility] Method Time Signature Hemoglobin 11.2 (L) 11.6 - 07/14/2018 [facility] 15.0 g/dL 8:24 AM CDT [facility] Hematocrit 33.8 (L) 35.5 - 07/14/2018 [facility] 44.9 % 8:24 AM T [facility] Erythrocytes 3.66 (L) 3.92 - 07/14/2018 [facility] 5.13 8:24 AM CDT [facility] x10(12)/L [facility] MCV 92.3 78.2 - 07/14/2018 [facility] 97.9 fL 8:24 AM T [facility] RBC Distrib Width 13.1 12.2 - 07/14/2018 [facility] 16.1 % 8:24 AM T [facility] Platelet Count 252 157 - 371 07/14/2018 [facility] x10(9)/L 8:24 AM [facility] Leukocytes 10.3 (H) 3.4 - 9.6 07/14/2018 [facility] x10(9)/L 8:24 AM [facility] Specimen Anatomical Collection Method Collection Time Receive d Time (Source) Location / / Volume Laterality Blood (Blood, 07/14/2018 8:11 AM 07/14/20 18 8:14 Venous) CDT AM CDT Damaris Houston APRN, CNM, M.S.N., B.S.N., R.N. LAB BLO OD ADD-ON Performing Organization Address City/State/ZIP Code Phon e Number [facility] [address] [place] [address] [facility] [facility] documented in this encounter Visit Diagnoses Diagnosis 41 Weeks Gestation (HCC) - Prim greyson 41 Weeks Gestation (HCC) Section Delivery (HCC) documented in this encounter Admitting Diagnoses Diagnosis 41 Weeks Gestation (HCC) documented in this encounter Administered Medications Inactive Administered Medications - up to 3 most recent administrations Medication Order MAR Action Action Date Dose Rate Site acetaminophen tablet 650 mg Given 07/14/2018 9:43 PM CDT 650 mg (TYLENOL) 650 mg, oral, Every 4 hours PRN, mild pain or score 1-3 of 10, for non-labor pain, Starting on Janeth 07/14/18 at 0746, L&D Pre-Delivery, Consultation with Anesthesia for pain control if patient requests regional anesthesia and in active labor or membranes ruptured. acetaminophen tablet 650 mg (TYLENOL) Given 07/18/2018 9:38 AM CDT 650 mg 650 mg, oral, Every 6 hours PRN, [...] mg of calcium, oral, Every 2 hour NV N, indigestion, Starting on Wed07/15/18 at 2047, Post-, One 500 mg tablet contains 200 mg o f calcium. 500 mg calcium carbonate contains 200 mg of elemental calcium. dinoprostone vaginal insert 10 mg (CERVI DIL) Given 07/14/2018 4:22 PM CDT 10 mg 10 mg, vaginal, Once, On Janeth 07/14/18 at 1500, For 1 dose, each vag.insert = 10 mg docusate sodium capsule 100 mg (COLACE) Given [...] Given 07/17/2018 9:21 AM CDT 20 mg fentaNYL 2 mcg/mL, ropivacaine 0.2 % (PF) in NaCl 0.9 % 2-0.2 mcg/mL-% epidural (premix) - ADS Override Pull Starting on Wed07/15/18 at 0748, For 1 dose, Created by cabinet override premix bag fentaNYL 2 mcg/mL, ropivacaine 0.2 % (PF) in New Bag 07/15/2018 7: 59 AM CDT NaCl 0.9 % epidural (premix) Continuous Rate: 8 mL/hr, PCEA Dose (PCEA only): 4 mL, PCEA Lockout (PCEA only): 30 Minutes, One Hour Limit (PCEA only): 16 mL, epidural, Continuous, Starting on Wed07/15/18 at 0800, For 72 hours, L&D Pre-Delivery, premix bag, Location: Lumbar, Mode: Continuous + PCEA ibuprofen tablet 600 mg (ADVIL,MOTRIN) Given 07/18/2018 4:50 AM CDT 600 mg 600 mg, oral, Every 6 hours, First dose on 07/16/18 at 1100, Post-, Start 6 hours after last ketorolac dose administered Given 07/17/2018 10:56 PM CDT 600 mg Given 07/17/2018 4:45 PM CDT 600 mg ketorolac injection 15 mg (TORADOL) Given 07/16/2018 4:54 AM CDT 15 mg 15 mg, intravenous, Every 6 hours, First dose on Wed07/15/18 at 2100, For 3 doses, Post-, Start no sooner than 4 hours after last ketorolac dose. Administer acetaminophen at same time as ketorolac. Adult IV push rate: Over 15 seconds. Peds IV push rate: Over 1 minute. 60 mg dose only for IM, not recommended for IV. Given 07/15/2018 10:47 PM CDT 15 mg lactated ringers New Bag 07/15/2018 7:16 PM CDT 125 mL/hr, intravenous, Continuous, Starting on Janeth 07/14/18 at 0800, L&D Pre-Delivery, Start if patient requested epidural or unable to tolerate oral Rate/Dose Verify 07/15/2018 6:12 PM CDT New Bag 07/15/2018 4:01 PM CDT 125 mL/hr 125 mL/hr lactated ringers 125 mL/hr, intravenous, Continuous, Star ting on Wed07/15/18 at 2100, Post-, Continue delivery fluids until current b ag of uterotonic finished then begin this fluid. Discontinue fluids and remove saline lock when intravenous medications finished and pain controlled with oral medications. magnesium hydroxide suspension 30 mL (MA LK OF MAGNESIA) 30 mL, oral, Every 8 hours PRN, constipation, Starting on Wed07/15/18 at 2048, Post-, Ordered sequence of administration if bot h magnesium hydroxide and bisacodyl are selected: magnesium hydroxide then bisac odyl until bowel movement achieved. miSOPROStol tablet 25 mcg (CYTOTEC) Given 07/14/2018 8:52 AM CDT 25 mcg 25 mcg, vaginal, Every 4 hours PRN, until a maximum of 6 doses is reached or at the onset of active labor, Starting on Janeth 07/14/18 at 0749, For 6 doses, L&D Pre-Delivery, Do not use misoprostol (Cytotec) in patients with a history of prior uterine surgery including section. Notify provider to discontinue misoprostol for more than 5 uterine contractions in a 10 minute segment averaged over a 30 minute period. Wait 4 hours after last dose of misoprostol before initiating oxytocin (Pitocin)., Indications: cervical ripening procedure naloxone injection 0.2 mg (NARCAN) 0.2 mg, intravenous, As needed, respirat ory depression, Starting on Wed07/15/18 at 204, Post-, For respiratory rate less than 8 br eaths per minute or RASS score of -3, -4, -5. Apply oxygen to jesus p oxygen saturations greater than 90% and notify service. ondansetron (PF) injection 4 mg (ZOFRAN) Given 07/15/2018 3:00 PM CDT 4 mg 4 mg, intravenous, Every 6 hours PRN, nausea, vomiting, Starting on Janeth 07/14/18 at 0746, L&D Pre-Delivery, If patient unable to take oral Given 07/15/2018 8:09 AM CDT 4 mg ondansetron (PF) injection 4 mg (ZOFRAN) 4 mg, intravenous, Every 6 hours PRN, na usea, vomiting, Starting on Wed07/15/18 at 2048, Post-, If patient unable to take oral [...] long-acting opi ate used start immediately post-operative. oxytocin 60 Rate/Dose Change 07/15/2018 2:52 12 kandy-units/min 12 mL /hr kandy-Units/mL in NaCl PM CDT 500 mL infusion (PITOCIN) 2-20 kandy-units/min (2-20 mL/hr), intravenous, Continuous, Starting on Wed07/15/18 at 0530, Begin infusion after 20 minutes of baseline /uterine monitoring or 4 hours after last misoprostol (CYTOTEC) placement or 30 minutes after removal of dinoprostone (CERVIDIL). Premix ba Units in 500 mL, Initiate at: 2 kandy-Units/min, Titrate at: 2 kandy-Units/min. every 30 min., Goal: Until contractions occur at a frequency of 2-3 min., are strong to palpation, or reach a mximum of 250 Grace units, and/or cervical change(s) occur. Rate/Dose Change 07/15/2018 2:09 PM CDT 10 kandy-units/min 10 mL/hr Rate/Dose Change 07/15/2018 1:29 PM CDT 8 kandy-units/min 8 mL/hr sennosides tablet 17.2 mg (SENOKOT) Given 07/17/2018 [...] gas, Starting on Wed07/15/18 at 2048, Post- sodium chloride injection 3 mL Given 07/14/2018 9:44 PM CDT 3 mL 3 mL, intravenous, Every 12 hours scheduled, First dose on Wed07/14/18 at 0900, L&D Pre-Delivery, Peripheral Intravenous Catheter and Rapid Infusion Catheter, when no infusion to maintain patency sodium citrate-citric acid solution 30 mL Given 07/15/2018 5:59 PM CDT 30 mL (BICITRA) 30 mL, oral, Once, On Wed07/15/18 at 1800, For 1 dose, Pre-Op, call center specialist to OR. Immediately prior to the procedure witch wood pad 1 application (TUCKS) 1 application, topical, 3 times daily NV N, irritation, or pain., Starting on Wed07/15/18 [...] (COLACE) 0953 (Given - Provider: Joanie Aguilar RYo.)6910 (Given - Provider: Esperanza Anderson R.N.) 0921 (Given - Provider: Joanie Aguilar R.N.)213 (Given - Provider: Ginny Mendez.Caridad.) 0828 (Given - Provider: Portia M Riester , R.N.) 100 mg, oral, 2 times daily, First dose on Wed07/15/18 at 2100, Post-, Do NOT crush or chew. famotidine tablet 20 mg (PEPCID) 0953 (Given - Provide r: Joanie Aguilar R.N.)2219 (Given - Provider: Esperanza Anderson R.N.) 0921 (Given - Provider: Joanie Aguilar R.N.)2130 (Given - Provider: Esperanza Anderson R.N.) 0828 (Given - Provider: Portia Mullins R.N.) 20 mg, oral, 2 times daily, First dose o n Janeth 07/14/18 at 2100, famotidine 20 mg oral twice daily was interchanged for ranitidine 150 mg oral twice daily, Drug Monitoring Program: Pharmacist to adjust m edication dosing based on indication and drug clearance factors. ibuprofen tablet 600 mg (ADVIL,MOTRIN) 1058 (Given - P rovider: Joanie Aguilar R.N.)1649 (Given - Provider: Joanie Aguilar R.N.)2243 (Given - Provider: Esperanza Anderson R.N.) 0523 (Given - Provider: Rocio MendezN.)1108 (Given - Provider: Joanie Aguilar R.N.)1645 (Given - Provider: Rocio ShannonN.)2256 (Given - Provider: Rocio MendezN.) 0450 (Given - Provider: Rocio MendezN.) 600 mg, oral, Every 6 hours, First [...] 1220 (Given - Pr ovider: Joanie Aguilar R.N.)1958 (Given - Provider: Esperanza Anderson R.N.) 0250 (Given - Provider: Esperanza Anderson R.N.)0926 (Given - Provider: Joanie Aguilar R.N.)1923 (Given - Provider: Esperanza nAderson R.N.) 0237 (Given - Provider: Esperanza Anderson R.N.)0938 (Given - Provider: Portia Mullins R.N.) 650 mg, oral, Every 6 hours PRN, moderat e pain or score 4-6 of 10, Starting on Wed07/15/18 at 2047, Post-, Administer acetaminophen at same time as ketorolac or ibuprofen. bisacodyl suppository 10 mg (DULCOLAX) 10 mg, rectal, 2 times daily PRN, consti pation, Starting on Wed07/15/18 at 2047, Post-, Verify rectal route is permitted. Ordered sequence of administration if both magnesium hydroxide and bisaco dyl are selected: magnesium hydroxide th en bisacodyl until bowel movement achieved. calcium carbonate chewable tablet 400 mg of calcium (TUMS) 400 mg of calcium, oral, Every 2 hour NV N, indigestion, Starting on Wed07/15/18 at 2047, [...] for abdominal gas, Starting on Wed07/15/18 at 2048, Post- witch wood pad 1 application (TUCKS) 1 application, topical, 3 times daily NV N, irritation, or pain., Starting on Wed07/15/18 at 2048, Post-, To perineum - If ordered may use in combination with benzocaine-menthol topical spray (DERMOPLAST) zolpidem tablet 5 mg (AMBIEN) 5 mg, oral, Bedtime PRN, sleep, Starting on Janeth 07/14/18 at 1834 documented in this encounter Care Teams Cake Inspector Relationship Specialty Start Date End Date Unassigned, Pcp PCP - General Family Medicine 02/24/18 documented as of this encounter
--- OUTSIDE RECORDS SUMMARY | 2022-08-07 10:37 | XMS_ITS | Encounter Summary ---
:1995 Author Organization [facility] Address [address] [place] [address] Care Team Providers Name Role Phone Unassigned, Pcp Primary Care Provider Unavailable Reason for Visit Reason Comments Routine Visit Outpatient (Routine) - Closed Specialty Diagnoses / Procedures Referred By Contact Refer red To Contact Obstetrics and Jennifer Sargent, MARIA LUISA, [facility] Gynecology C.N.P. [address] [place] [address] Referral ID Status Reason Start Date Expiration Date Visits Requ ested Visits Authorized [id number] Closed 05/13/2018 05/13/2019 1 1 Encounter Details Date Type Department Care Team Description 05/27/2018 Routine Department of Jennifer Sargent Examinat ion Obstetrics and PUNCHBOARD FILLING MACHINE OPERATOR, C.N.P. Normal First Gynecology in [facility] [address] Third [place], [place] Trimester (Primary [address] [address] Dx) [place], [place] [phone] (Work) [phone] Social History Tobacco Use Types Packs/Day Years Used Date Smoking Tobacco: Never Smokeless Tobacco: Never Alcohol Use Standard Drinks/Week Comments No 0 (1 standard drink = 0.6 oz pure alcoho l) Sex Assigned at Date Recorded Female 07/07/2018 9:07 AM CDT documented as of this encounter Last Filed Vital Signs Vital Sign Reading Time Taken Comments Blood Pressure 108/70 05/27/2018 9:09 AM CDT Pulse - - Temperature - - Respiratory Rate - - Oxygen Saturation - - Inhaled Oxygen Concentration - - Weight 110 kg (241 lb 10 oz) 05/27/2018 9:09 AM CDT Height - - Body Mass Index 41.25 11/13/2016 11:23 AM CONTRACTOR GENERAL BUILDING documented in this encounter Progress Notes Jennifer Sargent APRN, C.N.P. - 05/27/2018 9:15 AM CDT Patient is feeling well. Good movement. Small amount of cramping and tightening. No leaking offluid, bleeding. GBS next visit. Fetus is vertex by Roe's today. documented in this encounter Plan of Treatment Not on filedocumented as of this encounter Visit Diagnoses Diagnosis Examination Normal First Pregna ncy Third Trimester (HCC) - Primary documented in this encounter Care Teams Offal Trimmer Relationship Specialty Start Date End Date Unassigned, Pcp PCP - General Family Medicine 02/24/18 documented as of this encounter
--- OUTSIDE RECORDS SUMMARY | 2022-08-07 10:37 | XMS_ITS | Encounter Summary ---
:1995 Author Organization [facility] Address [address] [place] [address] Care Team Providers Name Role Phone Unassigned, Pcp Primary Care Provider Unavailable Reason for Visit Reason Onset Date Comments [facility] 07/26/2018 Faxed to Mike malcolm Encounter Details Date Type Department Care Team Description 07/26/2018 Clinical Communication Department of Fito Garduno (Faxed to Obstetrics and M Mike Block) Gynecology in [address] [phone] Social History Tobacco Use Types Packs/Day Years Used Date Smoking Tobacco: Never Smokeless Tobacco: Never Alcohol Use Standard Drinks/Week Comments No 0 (1 standard drink = 0.6 oz pure alcoho l) Sex Assigned at Date Recorded Female 07/07/2018 9:07 AM CDT documented as of this encounter Miscellaneous Notes Telephone Encounter - Fito Garduno - 07/26/2018 5:10 PM CDT Disability: FMLA Date Received: 07/25/2018 Date Faxed: 07/26/2018 Faxed to: [facility] [employer]- Automated Equipment/Authorization on File To HIM to Scan: 07/26/2018 documented in this encounter Plan of Treatment Not on filedocumented as of this encounter Visit Diagnoses Not on filedocumented in this encounter Care Teams Pick Up Driver Relationship Specialty Start Date End Date Unassigned, Pcp PCP - General Family Medicine 02/24/18 documented as of this encounter
--- OUTSIDE RECORDS SUMMARY | 2022-08-07 10:37 | XMS_ITS | Encounter Summary ---
:1995 Author Organization [facility] Address [address] [place] [address] Care Team Providers Name Role Phone Unassigned, Pcp Primary Care Provider Unavailable Encounter Details Date Type Department Care Team Description 07/25/2018 Encounter Social History Tobacco Use Types Packs/Day Years Used Date Smoking Tobacco: Never Smokeless Tobacco: Never Alcohol Use Standard Drinks/Week Comments No 0 (1 standard drink = 0.6 oz pure alcoho l) Sex Assigned at Date Recorded Female 07/07/2018 9:07 AM CDT documented as of this encounter Miscellaneous Notes Note - Leatha Trujillo R.N. - 07/25/2018 3:32 PM CDT This note was copied from a baby's chart. SUBJECTIVE Zenia Kenya Lewis, at 10 days old of age, was seen for a Consultation at [facility]. OBJECTIVE Delivery Details: Risk Factors: Other Obstetric Procedures-This : None Labor Complications: Failure to Progress in First Stage Delivery Type: , Low Transverse Weight: 3670 g 1 Minute 5 Minute 10 Minute Totals: 9 9 Maternal Breast Assessment Mother denies breast or nipple tenderness. Is pumping and feeding- no direct latch. Pumps every 2 1/2 hours during the day and every 4 hours at night - and will obtain between 2-3 ounces per pumping session. Assessment . Baby has been taking EBM and breast milk mixed together in a bottle and not always finishing the feeding. Mother instructed to feed the EBM first and then place formula into bottle for the baby to finish the feed. . Infant Assessment Infant skin is clean and dry- free of rashes. Umbilical cord in on and dry. Mother aware of cord care. is 3.744kg toady - above weight at 10 days of age. Infant has enlarged breast buds -about 3cm diameter, (assessed by Linda Tenorio IBCLC) Latch Score: no latch Infant Input: 8-10 feedings/24 hours Infant Output: More than 6 voids/24 hours, 8 yellow stools/24 hours, weight: 3670 g Current weight: Weight: 3744 g Percent of weight change since : 2% Weight change since previous weight: Weight Change (gm) : 0 Pct Wt Change: 2.02 % ASSESSMENT/PLAN Follow Up: follow up plan: will follow up at this class as needed. Physician appt 08/01 Leatha Trujillo R.N.} documented in this encounter Plan of Treatment Not on filedocumented as of this encounter Visit Diagnoses Not on filedocumented in this encounter Care Teams Print Support Specialist Relationship Specialty Start Date End Date Unassigned, Pcp PCP - General Family Medicine 02/24/18 documented as of this encounter
--- OUTSIDE RECORDS SUMMARY | 2022-08-07 10:37 | XMS_ITS | Encounter Summary ---
:[address] [facility] Address [address] [place] [address] Care Team Providers Name Role Phone Unassigned, Pcp Primary Care Provider Unavailable Reason for Visit Reason Comments Care Outpatient (Routine) - Closed Specialty Diagnoses / Procedures Referred By Contact Refer red To Contact Obstetrics and Jonas Buck M.D. [facility] Gynecology [address], [address] [place] [address] Referral ID Status Reason Start Date Expiration Date Visits Requ ested Visits Authorized [id number] Closed 07/18/2018 07/18/2019 1 1 Encounter Details Date Type Department Care Team Description 08/26/2018 Office Visit Department of Jennifer Sargent, Care Postpar blue (HCC) (Primary Dx); Obstetrics and MARIA LUISA, C.N.P. Counseling Control And Therapy Gynecology in [address] [address] [place], [place] [phone] (Work) [phone] Social History Tobacco Use Types Packs/Day Years Used Date Smoking Tobacco: Never Smokeless Tobacco: Never Alcohol Use Standard Drinks/Week Comments No 0 (1 standard drink = 0.6 oz pure alcoho l) Sex Assigned at Date Recorded Female 07/07/2018 9:07 AM CDT documented as of this encounter Last Filed Vital Signs Vital Sign Reading Time Taken Comments Blood Pressure 124/74 08/26/2018 9:48 AM WARM IN Pulse - - Temperature - - Respiratory Rate - - Oxygen Saturation - - Inhaled Oxygen Concentration - - Weight 101 kg (221 lb 12.5 oz) 08/26/2018 9:48 AM WARM IN Height - - Body Mass Index 37.86 11/13/2016 11:23 AM WARM IN documented in this encounter Progress Notes Jennifer Sargent, MARIA LUISA, C.N.P. - 08/26/2018 10:00 AM CST SUBJECTIVE CHIEF COMPLAINT/REASON FOR VISIT Chief Complaint Patient presents with ??? Care HISTORY OF PRESENT ILLNESS: Ms. Lewis is a 22 y.o. here for a 6-week checkup. She had a delivery of a viable girl weight 8 pounds 1 oz., with no complications. Since delivery, she has stopped breast feeding due to infant food allergies. She has no signs of infection, bleeding or other complications. Has resumed intercourse since delivery. We discussed contraception andshe has chosen oral contraceptive pill for contraceptive method. Last pap smear 2017 and was NIL Patient Active Problem List Diagnosis ??? Pain Epigastric Past Medical History: Diagnosis Date ??? Renal Disease ??? Stone Kidney ??? Varicella chicken pox and shingles Past Surgical History: Procedure Laterality Date ??? SECTION N/A 07/15/2018 Procedure: SECTION; Surgeon: Jonas Buck M.D.; Location: [facility] OR Current Outpatient Prescriptions Medication Sig Dispense Refill ??? levonorgestrel-ethinyl estrad (NORDETTE) 0.15-0.03 mg per tablet Take 1 tablet by mouth daily. 84 tablet 4 ??? xtjgpjk-koftdjfq-ihbl fumarate-FA (for_VINATE M) 27-1 mg per tablet Take 1 tablet by mouth daily. ??? raNITIdine (ZANTAC) 150 mg tablet Take 1 tablet (150 mg total) by mouth 2 (two) times a day. 180tablet 3 No current facility-administered medications for this visit. Allergies Allergen Reactions ??? Banana GI intolerance Raw banana. Severe stomach pain REVIEW OF SYSTEMS General: Negative. Breasts: Negative. GI: No constipation, diarrhea. Reproductive: See above, no vaginal discharge or pelvic pain. : No burning/pain with urination, no urinary incontinence. Psych: No depression or anxiety. OBJECTIVE BP 124/74 (Cuff Size: Regular) Wt 100.6 kg LMP 09/30/2017 (LMP Unknown) ? Yes BMI 37.86 kg/m?? PHQ-9 0 PHYSICAL EXAMINATION General: Patient is in no distress, alert. HEENT: Grossly normal. Neck: No nodes, no thyromegaly. Heart: Regular rate and rhythm. Lungs: Clear to auscultation bilaterally. No rales, no crackles. Abdomen: Soft, nontender to palpation. BS + x4. No masses, guarding or tenderness. Low transverse scar, well healed Pelvis: Normal external genitalia. BUS normal. Urethra normal. Bladder non tender, not enlarged. Vagina no abnormal discharge. No lesions. Normal mucosa and rugae Cervix appears normal, without lesion, well healed. Pap smear is not taken No cervical motion tenderness. Bimanual exam uterus non in size. Firm, mobile. Adnexa nontender, without masses. Anus normal. Extremities: No neurovascular compromise. No cyanosis, clubbing or edema. No edema, non tender. ASSESSMENT / PLAN #1 Care (HCC) Normal exam #2 Counseling Control And Therapy no known contraindication to initiation of OCPs. Patient is no longer using her breast milk. Prescription is sent for Nordette for 1 year. She is encouraged to contact me via the patient portal or return to clinic with concerns about side effects, or to consider switching to a different pill. IN documented in this encounter Plan of Treatment Not on filedocumented as of this encounter Visit Diagnoses Diagnosis Care (HCC) - Primary Counseling Control And Therapy documented in this encounter Care Teams Fisher Troll Line Relationship Specialty Start Date End Date Unassigned, Pcp PCP - General Family Medicine 02/24/18 documented as of this encounter
--- OUTSIDE RECORDS SUMMARY | 2022-08-07 10:37 | XMS_ITS | Encounter Summary ---
:1995 Author Organization [facility] Address [address] [place] [address] Care Team Providers Name Role Phone Unassigned, Pcp Primary Care Provider Unavailable Reason for Visit Reason Onset Date Comments Medical Request Form 10/14/2018 Faxed to [facility] Encounter Details Date Type Department Care Team Description 10/14/2018 Clinical Communication [facility]s and M Form (Faxed to Gynecology in [address]) [address] [phone] Social History Tobacco Use Types Packs/Day Years Used Date Smoking Tobacco: Never Smokeless Tobacco: Never Alcohol Use Standard Drinks/Week Comments No 0 (1 standard drink = 0.6 oz pure alcoho l) Sex Assigned at Date Recorded Female 07/07/2018 9:07 AM CDT documented as of this encounter Miscellaneous Notes Telephone Encounter - Fito Garduno - 10/14/2018 11:38 AM CST Jennifer Sargent completed the medical request form, faxed to [employer] and placed a copy to be scanned. ER COASTER ENGINEER documented in this encounter Plan of Treatment Not on filedocumented as of this encounter Visit Diagnoses Not on filedocumented in this encounter Care Teams Resistor Coater Relationship Specialty Start Date End Date Unassigned, Pcp PCP - General Family Medicine 02/24/18 documented as of this encounter
--- OUTSIDE RECORDS SUMMARY | 2022-08-07 10:37 | XMS_ITS | Encounter Summary ---
:1995 Author Organization [facility] Address [address] [place] [address] Care Team Providers Name Role Phone Unassigned, Pcp Primary Care Provider Unavailable Reason for Visit Reason Comments Routine Visit Outpatient (Routine) - Closed Specialty Diagnoses / Procedures Referred By Contact Refer red To Contact Obstetrics and Jennifer Sargent, MARIA LUISA, [facility] Gynecology C.N.P. [address] [place] [address] Referral ID Status Reason Start Date Expiration Date Visits Requ ested Visits Authorized [id number] Closed 05/13/2018 05/13/2019 1 1 Encounter Details Date Type Department Care Team Description 06/10/2018 Routine Department of Jennifer Sargent Examinat ion Obstetrics and MARIA LUISA, C.N.P. Normal Gynecology in [facility] [address] [facility] [address] Third Trimester [place], [place] (Primary Dx) [address] [facility] [address] [place], [place] [phone] (Work) [phone] Social History Tobacco Use Types Packs/Day Years Used Date Smoking Tobacco: Never Smokeless Tobacco: Never Alcohol Use Standard Drinks/Week Comments No 0 (1 standard drink = 0.6 oz pure alcoho l) Sex Assigned at Date Recorded Female 07/07/2018 9:07 AM CDT documented as of this encounter Last Filed Vital Signs Vital Sign Reading Time Taken Comments Blood Pressure 132/84 06/10/2018 9:02 AM CDT Pulse - - Temperature - - Respiratory Rate - - Oxygen Saturation - - Inhaled Oxygen Concentration - - Weight 111 kg (244 lb 7.8 oz) 06/10/2018 9:02 AM CDT Height - - Body Mass Index 41.74 11/13/2016 11:23 AM FLOUR MIXER HELPER documented in this encounter Progress Notes Jennifer Sargent APRN, C.N.P. - 06/10/2018 9:15 AM CDT Patient is feeling well. She did have some lower right back pain the last 2 days, this has subsided.Occasional cramping. No leaking of fluid or bleeding. Baby is active. GBS today. Baby is vertex by bedside ultrasound. documented in this encounter Plan of Treatment Not on filedocumented as of this encounter Procedures Procedure Name Priority Date/Time Associated Diagnosis Comme nts GROUP B STREP (S. Routine 06/10/2018 9:26 AM Examination Prena orestes Results for this AGALACTIAE), PCR CDT Normal procedu re are in Third Trimester the results section. documented in this encounter Results Group B Strep (S. agalactiae), PCR (06/10/2018 9:26 AM CDT) P athologist Signature Grp B Strep Negative Negative 06/11/2018 [facility] (S. 12:22 PM CDT HEALTH agalactiae), SYSTEM- [facility] Specimen Anatomical Collection Method Collection Time Receive d Time (Source) Location / / Volume Laterality Varies 06/10/2018 9:26 AM 8 4:02 (Vagina-Rectum) CDT PM CDT Jennifer Sargent APRN, C.N.P. LAB MICROBIOLOGY - GENERAL O RDERABLES Performing Organization Address City/State/ZIP Code Phon e Number [facility] [address] [place] [address] [facility] documented in this encounter Visit Diagnoses Diagnosis Examination Normal Th ird Trimester (HCC) - Primary documented in this encounter Care Teams Post Anesthesia Room Nurse Relationship Specialty Start Date End Date Unassigned, Pcp PCP - General Family Medicine 02/24/18 documented as of this encounter
--- OUTSIDE RECORDS SUMMARY | 2022-08-07 10:37 | XMS_ITS | Encounter Summary ---
:1995 Author Organization [facility] Address [address] [place] [address] Care Team Providers Name Role Phone Unassigned, Pcp Primary Care Provider Unavailable Encounter Details Date Type Department Care Team Description 04/15/2018 Hospital Encounter Department of Jennifer Sargent Encoun ter For Laboratory Medicine MARIA LUISA, C.N.P. Supervision Of in [place], [address] [facility] Normal First [place], [place] [address] [address] Unspecified [place], [place] [phone] Trimester [id number] (Work) [phone] Social History Tobacco Use Types Packs/Day Years [...] End Date Take 1 tablet by 0 pdwrukm-ljhtvspg-qaiu mouth daily. fumarate-FA (for_VINATE M) 27-1 mg per tablet documented as of this encounter Plan of Treatment Not on filedocumented as of this encounter Procedures Procedure Name Priority Date/Time Associated Diagnosis Comme nts SYPHILIS TOTAL AB Routine 04/15/2018 3:36 PM Encounter For Res ults for this W/ REFLEX S CDT Supervision Of procedure are in Normal First the results section. Unspecified Trimester GLUCOSE ANNY, 1HR, Routine 04/15/2018 3:36 PM Encounter For Res ults for this S/P CDT Supervision Of procedure are in Normal First the results section. Unspecified Trimester CBC WITHOUT Routine 04/15/2018 3:36 PM Encounter For Results for this DIFFERENTIAL, B CDT Supervision Of procedure are in Normal First the results section. Unspecified Trimester documented in this encounter Results Syphilis IgG Antibody with Reflex (04/15/2018 3:36 PM CDT) athologist Signature Syphilis IgG Negative Negative 04/18/2018 [facility] Ab, S 3:49 PM CDT [facility] Comment: No serologic evidence of exposu re to syphilis. Specimen Anatomical Collection Method Collection Time Receive d Time (Source) Location / / Volume Laterality Blood (Blood, 04/15/2018 3:36 PM 04/15/20 9:51 Venous) CDT PM CDT Jennifer Sargent APRN, C.N.P. LAB BLOOD ADD-ON Performing Organization Address City/[facility]/ZIP Code Phon e Number [facility] [address] [place] [address], [place] [id number] [place] [address] LAB Glucose Tolerance Test, 1 hour (04/15/2018 3:36 PM CDT) athologist Signature Glucose Anny, 1 120 <130 mg/dL 04/15/2018 [facility] hr, S 4:24 PM CDT [facility] Specimen Anatomical Collection Method Collection Time Receive d Time (Source) Location / / Volume Laterality Blood (Blood, 04/15/2018 3:36 PM 04/15/20 18 3:37 Venous) CDT PM CDT Jennifer Sargent APRN, C.N.P. LAB BLOOD NON ADD-ON Performing Organization Address City/State/ZIP Code Phon e Number [address] [place] [address] [facility] (ABNORMAL) CBC without Differential (04/15/2018 3:36 PM CDT) [facility] gist Method Time Signature Hemoglobin 11.1 (L) 11.6 - 04/15/2018 [facility] 15.0 g/dL 3:42 PM CDT [facility] Hematocrit 33.1 (L) 35.5 - 04/15/2018 [facility] 44.9 % 3:42 PM CDT [facility] Erythrocytes 3.56 (L) 3.92 - 04/15/2018 [facility] 5.13 3:42 PM CDT HEALTH x10(12)/L SYSTEM RED [facility] MCV 93.0 78.2 - 04/15/2018 [facility] 97.9 fL 3:42 PM CDT [facility] RBC Distrib Width 13.0 12.2 - 04/15/2018 [facility] 16.1 % 3:42 PM CDT [facility] Platelet Count 233 157 - 371 04/15/2018 [facility] x10(9)/L 3:42 PM CDT [facility] Leukocytes 11.0 (H) 3.4 - 9.6 04/15/2018 [facility] x10(9)/L 3:42 PM CDT [facility] Specimen Anatomical Collection Method Collection Time Receive d Time (Source) Location / / Volume Laterality Blood (Blood, 04/15/2018 3:36 PM 04/15/20 18 3:37 Venous) CDT PM CDT Jennifer Sargent APRN, C.N.P. LAB BLOOD ADD-ON Performing Organization Address City/State/ZIP Code Phon e Number [facility] [address] [facility] [place] [address] [facility] documented in this encounter Visit Diagnoses Diagnosis Encounter For Supervision Of Normal Firs t Unspecified Trimester (HCC) documented in this encounter Care Teams Material Attendant Relationship Specialty Start Date End Date Unassigned, Pcp PCP - General Family Medicine 02/24/18 documented as of this encounter
--- OUTSIDE RECORDS SUMMARY | 2022-08-07 10:37 | XMS_ITS | Encounter Summary ---
:1995 Author Organization [facility] Address [address] [place] [address] Care Team Providers Name Role Phone Unassigned, Pcp Primary Care Provider Unavailable Reason for Referral Outpatient (Routine) - Closed Specialty Diagnoses / Procedures Referred By Contact Refer red To Contact Obstetrics Jennifer Davis APRN, [facility] [address] [place] [address] Referral ID Status Reason Start Date Expiration Date Visits Requ ested Visits Authorized [id number] Closed 05/13/2018 05/13/2019 1 1 Outpatient (Routine) - Closed Specialty Diagnoses / Procedures Referred By Contact Refer red To Contact Jennifer Cid APRN, [facility] [address] [place] [address] Referral ID Status Reason Start Date Expiration Date Visits Requ ested Visits Authorized [id number] Closed 05/13/2018 05/13/2019 1 1 Outpatient (Routine) - Closed Specialty Diagnoses / Procedures Referred By Contact Lior red To Contact Jennifer Cid APRN, [facility] [address] [place] [address] Referral ID Status Reason Start Date Expiration Date Visits Requ ested Visits Authorized [id number] Closed 05/13/2018 05/13/2019 1 1 Reason for Visit Reason Comments Routine Visit Outpatient (Routine) - Closed Specialty Diagnoses / Procedures Referred By Contact Refer red To Contact Obstetrics and Jennifer Sargent APRN, [facility] C[facility] [address] [place] [address] Referral ID Status Reason Start Date Expiration Date Visits Requ ested Visits Authorized [id number] Closed 04/15/2018 04/15/2019 1 1 Encounter Details Date Type Department Care Team Description 05/13/2018 Routine Department of Jennifer Sargent [facility] Obstetrics and MARIA LUISA, C.N.P. [facility] in [address] [place], [place] Trimester (Primary [address] [place] [phone] Dx) [place], [place] [phone] (Work) [phone] Social History Tobacco Use Types Packs/Day Years Used Date Smoking Tobacco: Never Smokeless Tobacco: Never Alcohol Use Standard Drinks/Week Comments No 0 (1 standard drink = 0.6 oz pure alcoho l) Sex Assigned at Date Recorded Female 07/07/2018 9:07 AM CDT documented as of this encounter Last Filed Vital Signs Vital Sign Reading Time Taken Comments Blood Pressure 118/78 05/13/2018 8:44 AM CDT Pulse - - Temperature - - Respiratory Rate - - Oxygen Saturation - - Inhaled Oxygen Concentration - - Weight 109 kg (239 lb 13.8 oz) 05/13/2018 8:44 AM CDT Height - - Body Mass Index 40.95 11/13/2016 11:23 AM [employer] documented in this encounter Progress Notes Jennifer Sargent APRN, C.N.P. - 05/13/2018 9:00 AM CDT Patient is tearful today. She is worried about her . He fainted twice in the recent past, once well there at Labor and delivery class while taking a tour, the other time during labor and delivery class watching a birthing video. She states that he has had a recent normal physical. This is happened to him before, when he was injured. We discussed these concerns. I advise that day notified nursing when they come into the hospital, careful position change, etc. She reports good movement, baby has moved down, feels more low abdominal pressure. No cramping, leaking fluid, bleeding. Her heartburn has improved with Zantac. She has noticed hemorrhoids, these are not bothering her. We discussed keeping bowels regular, drinking plenty of fluids, tucks pads or preparation-H for comfort if needed. We discussed that her urine culture is negative. She denies symptoms of UTI. documented in this encounter Plan of Treatment Scheduled Referrals Name Type Priority Associated Order Schedule Diagnoses Obstetrics and Outpatient Referral Routine weekly for 4 Gynecology office Occurrence s visit (clinic) starting 05/04 until 9 Obstetrics and Outpatient Referral Routine Expect ed: Gynecology office 05/27/2018 visit (clinic) (Approximate) , Expires: 2020 Obstetrics and Outpatient Referral Routine Expect ed: Gynecology office 06/10/2018 visit (clinic) (Approximate) , Expires: 2020 documented as of this encounter Visit Diagnoses Diagnosis Examination Normal First Pregna ncy Third Trimester (HCC) - Primary documented in this encounter Care Teams Train Driver Relationship Specialty Start Date End Date Unassigned, Pcp PCP - General Family Medicine 02/24/18 documented as of this encounter
--- OUTSIDE RECORDS SUMMARY | 2022-08-07 10:38 | XMS_ITS | Encounter Summary ---
:1995 Author Organization [facility] Address [address] [place] [address] Care Team Providers Name Role Phone Unavailable Primary Care Provider Unavailable Encounter Details Date Type Department Care Team Description 02/16/2018 Hospital Encounter Department of Jennifer Sargent, [facility] in [facility] [place] [address] [place] [address] [address] [place] [phone] Social History Tobacco Use Types Packs/Day [...] End Date Take 1 tablet by 0 tdgymol-ydcanucs-kqcu mouth daily. fumarate-FA (for_VINATE M) 27-1 mg per tablet documented as of this encounter Plan of Treatment Not on filedocumented as of this encounter Procedures Procedure Name Priority Date/Time Associated Comments Diagnosis US OB ANATOMY RAD - Routine 02/16/2018 2:44 Normal First Results fo r this JUNIOR (most inpatients PM CDT procedure a re in and all the results outpatients) section. documented in this encounter Results US OB Anatomy Junior (02/16/2018 2:44 PM CDT) Anatomical Region Laterality Modality Body, Ultrasound OB RST LOS N/A Ultrasound Specimen (Source) Anatomical Collection Method Collection Time Re ceived Time Location / / Volume Laterality 02/16/2018 3:37 PM CDT Impressions 02/16/2018 3:43 PM CDT IMPRESSION: Routine anatomy survey completed and no anomalies identified. Narrative 02/16/2018 3:43 PM CDT EXAM: US OB ANATOMY JUNIOR COMPARISON: 11/26/2017 FINDINGS: Number of Gestations: Single Established Gestational age: ??19 weeks 6 days. OK 07/07/2018. Presentation: Variable Placental Location: Posterior Amniotic Fluid: Subjectively normal in v olume. Age by current ultrasound measurements: ??19 weeks 5 days. Estimated weight: 338 grams. EFW is at the 65 percentile for gestatio nal age. BPD 43 %ile, HC 30 %ile, AC 67 %ile, FL 48 %ile heart rate: 154 bpm. anatomic survey: ??Routine a natomic survey completed and no anomalies identified. Maternal ovaries/adnexae: Normal Cervix: No abnormality identified trans- abdominally. Unless otherwise indicated, the hyde rvey includes: Four-chamber heart, RVOT and LVOT, diaphragm, stomach (presence a nd situs), kidneys, bladder, spine (cervical, thoracic, lumbar, and sacral spine), cerebral ventricles and choroid plexus, cavum septum pellucidum, cistern a magna, cerebellum, three vessel umbilical cord, umbilical cord insertion , four extremities, upper lip, facial profile. Procedure Note Doe Bach M.D. - 02/16/2018Formatti ng of this note might be different from the original. EXAM: US OB ANATOMY JUNIOR COMPARISON: 11/26/2017 FINDINGS: Number of Gestations: Single Established Gestational age: 19 weeks 6 days. OK 07/07/2018. Presentation: Variable Placental Location: Posterior Amniotic Fluid: Subjectively normal in v olume. Age by current ultrasound measurements: 19 weeks 5 days. Estimated weight: 338 grams. EFW is at the 65 percentile for gestatio nal age. BPD 43 %ile, HC 30 %ile, AC 67 %ile, FL 48 %ile heart rate: 154 bpm. anatomic survey: Routine marley tomic survey completed and no anomalies identified. Maternal ovaries/adnexae: Normal Cervix: No abnormality identified trans- abdominally. Unless otherwise indicated, the hyde rvey includes: Four-chamber heart, RVOT and LVOT, diaphragm, stomach (presence a nd situs), kidneys, bladder, spine (cervical, thoracic, lumbar, and sacral spine), cerebral ventricles and choroid plexus, cavum septum pellucidum, cistern a magna, cerebellum, three vessel umbilical cord, umbilical cord insertion , four extremities, upper lip, facial profile. IMPRESSION: Routine anatomy survey completed and no anomalies identified. Jennifer Sargent APRN, C.N.P. IMG OB US PROCEDURES documented in this encounter Visit Diagnoses Diagnosis Encounter For Supervision Of Normal Firs t Unspecified Trimester (HCC) documented in this encounter
--- OUTSIDE RECORDS SUMMARY | 2022-08-07 10:38 | XMS_ITS | Encounter Summary ---
:1995 Author Organization [facility] Address [address] [place] [id number] Care Team Providers Name Role Phone Unavailable Primary Care Provider Unavailable Encounter Details Date Type Department Care Team Description 09/28/2016 Hospital Encounter HX [facility] ED Carlos Alberto Copeland M.D. [address] [place] [address] [phone] (Wo rk) Social History Tobacco Use Types Packs/Day Years Used Date Smoking Tobacco: Never Assessed Sex Assigned at Date Recorded Female 07/07/2018 9:07 AM CDT documented as of this encounter Last Filed Vital Signs Vital Sign Reading Time Taken Comments Blood Pressure 133/87 09/28/2016 6:55 AM OYSTER FISHERMAN Pulse 88 09/28/2016 6:55 AM [facility]STER FISHERMAN Temperature - - Respiratory Rate 16 09/28/2016 6:55 AM OYSTER FISHERMAN Oxygen Saturation - - Inhaled Oxygen Concentration - - Weight 86 kg (189 lb 9.5 oz) 09/28/2016 6:55 AM OYSTER FISHERMAN Height 162.6 cm (5' 4) 09/28/2016 6:55 AM OYSTER FISHERMAN Body Mass Index 32.54 09/28/2016 6:55 AM OYSTER FISHERMAN documented in this encounter Discharge Summaries Ame London R.N. - 09/28/2016 8:14 AM CST ED Discharge Instructions [address] [place] [address] Name: ERIK MICHAEL Date of : 1995 12:00 AM Visit Date: 09/28/2016 6:42 AM [facility] Number: [id number] Address: [address] [place] [id number] Primary Care Provider: PCP, BEAU IMPORTANT: [facility] in [place] would like to thank you for allowing us to assist you with your healthcare needs. The following includes patient education materials and information regarding your injury/illness. Diagnosis: Fracture Radius Closed Initial L Follow-Up Instructions: With: Address: When: Orthopedics Within As Needed With: Address: When: ELSEWHERE PCP Within As Needed Your Upcoming Appointments: Date Time Location Provider No Appointments found Patient Education Materials: Fracture:Wrist (Colles) [ No Reduction Needed] You have a break (fracture) of the forearm bone (radius) where it attaches to the wrist. This is sometimes called a COLLES FRACTURE. The bone is not out of place and will not need to be set (reduced). However, a splint or cast will be required. This fracture takes 4-6 weeks to heal. Home Care: 1) Keep your arm elevated to reduce pain and swelling. When sitting or lying down elevate your arm above the level of your heart. You can do this by placing your arm on a pillow that rests on your chest or on a pillow at your side. This is most important during the first 48 hours after injury. 2) Apply an ice pack (ice cubes in a plastic bag, wrapped in a towel) over the injured area for 20 minutes every 1-2 hours the first day. You can place the ice pack inside the sling and directly over the splint/cast. Continue with ice packs 3-4 times a day for the next two days, then as needed for therelief of pain and swelling. 3) Keep the cast/splint completely dry at all times. Bathe with your cast/splint out of the water, protected with a large plastic bag, rubber-banded at the top end. If a fiberglass cast/splint gets wet, you can dry it with a hair-dryer. 4) You may use acetaminophen (Tylenol) or ibuprofen (Motrin, Advil) to control pain, unless another pain medicine was prescribed. [ NOTE : If you have chronic liver or kidney disease or ever had a stomach ulcer or GI bleeding, talk with your doctor before using these medicines.] Follow Up with your doctor in one week, or as advised by our staff, to be sure the bone is healing properly. If a splint was applied, it will be changed to a cast during your follow-up visit. [NOTE: A radiologist will review any X-rays that were taken. We will notify you of any new findings that may affect your care.] Get Prompt Medical Attention if any of the following occur: -- The plaster cast or splint becomes wet or soft -- The fiberglass cast or splint remains wet for more than 24 hours -- Increased tightness or pain under the cast or splint -- Fingers become swollen, cold, blue, numb or tingly ?? [id number] [facility], [address] [place] [address], [place] [address]. All rights reserved. This information is not intended as a substitute for professional medical care. Always follow your healthcare professional's instructions. Consider Using Patient Online Services Patient Online Services is a secure online and Mobile application that lets you: ?? View lab and test results ?? View portions of your medical record including clinical notes, immunizations and discharge summaries ?? Request an appointment or medication refill ?? Review your appointment schedule ?? Send secure messages to your care team Its easy to create an account if you dont have one. Go to [email or web address] and click on Create Your Account. Then, follow the directions to complete the online form. Youll be asked for your [facility] number which you can find at the top of this document. ED Tests and Procedures: Order Status XR Wrist Left 3 or more views Completed Discharge Prescriptions & Home Medications: Medication/Strength Dose Route Frequency Indications/Special Instructions/Comments/Notes ibuprofen (ibuprofen 200 mg oral tablet) 2-4 tab(s) Oral every 6 hours as needed for Pain / Fever HYDROcodone-acetaminophen (Clayton 5 mg-325 mg oral tablet) 1 to 2 tablets Oral every 4 hours as needed for Pain No more than 4,000mg acetaminophen/24hrs norgestimate-ethinyl estradiol (Sprintec 0.25 mg-35 mcg oral tablet) 1 Oral once a day albuterol (albuterol CFC free 90 mcg/inh inhalation aerosol) 2 puff(s) Inhalation every 4 hours Comment: Attention: If you have any medications at home that are not on this list, DO NOT take them until youcontact your provider for clarification. Give a copy of your medication list to your primary care provider. Update your medication list any time medications or doses are changed and carry your medication list at all times in case of emergency. IMPORTANT: We examined and treated you today on an emergency basis only. This was not a substitute for, or an effort to provide, complete medical care. In most cases, you must let your doctor check youagain. Tell your doctor about any new or lasting problems. We cannot recognize and treat all injuries or illnesses in one Emergency Department visit. If you had special tests, such as EKG's or X- rays, we will review them again within 24 hours. We will call you if there are any new suggestions. Please follow the instructions above carefully. If you are being transferred to another facility your followup plan of care will be determined by the receiving facility. If you are a patient that is being discharged from the Emergency Department after receiving narcotics or other medications that may impair your judgment you may be a risk to yourself or others if you operate a motor vehicle. We recommend that you arrange a ride home with a responsible alliance party. FERNANDA Montano ALEXANDRA JADE , or responsible alliance party have received this information and my questions have been answered. I have discussed any challenges I see with this plan with the nurse or physician. Patient Signature or Responsible Green Party/Relationship Date Time Provider Signature Date Time IMPORTANT: We examined and treated you today on an emergency basis only. This was not a substitute for, or an effort to provide, complete medical care. In most cases, you must let your doctor check youagain. Tell your doctor about any new or lasting problems. We cannot recognize and treat all injuries or illnesses in one Emergency Department visit. If you had special tests, such as EKG's or X- rays, we will review them again within 24 hours. We will call you if there are any new suggestions. Please follow the instructions above carefully. If you are being transferred to another facility your followup plan of care will be determined by the receiving facility. If you are a patient that is being discharged from the Emergency Department after receiving narcotics or other medications that may impair your judgment you may be a risk to yourself or others if you operate a motor vehicle. We recommend that you arrange a ride home with a responsible alliance party. I, ERIK MICHAEL , or responsible alliance party have received this information and my questions have been answered. I have discussed any challenges I see with this plan with the nurse or physician. Patient Signature or Responsible Green Party/Relationship Date Time Provider Signature Date Time This document has images extracted. Please consider using [email or web address] for all your patient education needs. Source: [facility] POWERCHART Document Id: [id number] ER FISHERMAN Ame London, RYo. - 09/28/2016 8:14 AM CST ED Depart Summary [facility] Emergency Department Clinical Discharge Summary PERSON INFORMATION Name ERIK MICHAEL Age 20 Years 1995 12:00 AM Sex Female Language Kazakh PCP PCP, ELSEWHERE Marital Status Single N [id number] Visit Id Visit Reason UC - Wrist Injury; wrist injury Specialty Enc Type Emergency Med Service Emergency Medicine Referred by Track Group [facility] ED Discharge 09/28/2016 8:05 AM Tracking Id [id number] Checkout 09/28/2016 8:05 AM Checkin 09/28/2016 6:42 AM Acuity 3 -Urgent Dispo Type * Discharged to Home or Self Care Arrival 09/28/2016 6:42 AM Reg Status Complete LOS 000 01:23 Address: [address] [place] [address] Comment: PROVIDER INFORMATION Provider Role Provider Contact Time AME LONDON RN ED Nurse 09/28/16 06:51 MARY COPELAND MD ED Provider 09/28/16 07:22 DIAGNOSIS Fracture Radius Closed Initial L Comment: PATIENT EDUCATION INFORMATION Instructions: COLLES FRACTURE, No Reduction Required Follow up: With: Address: When: Orthopedics Within As Needed With: Address: When: ELSEWHERE PCP Within As Needed Source: Venmo Document Id: [id number] ER FISHERMAN documented in this encounter Medications at Time of Discharge Medication Sig Dispensed Refills Start Date End Date albuterol sulfate 90 Inhale 2 puffs every 0 01/2511/26/2017 mcg/actuation aerosol 4 (four) hours. powdr breath activated documented as of this encounter ED Notes Ame London R.N. - 09/28/2016 8:12 AM CST ED Disposition Summary ED Disposition Summary Entered On: 09/28/2016 8:12 OYSTER FISHERMAN Performed On: 09/28/2016 8:12 OYSTER FISHERMAN by AME LONDON RN ED Disposition Summary Present in Room During Exam/Procedure : Significant other Mode of Discharge : Ambulatory Transportation : Private vehicle Printed Discharge Instructions Given to Patient : Yes Patient Status at Discharge from ED : Improved AME LONDON RN - 09/28/2016 8:12 OYSTER FISHERMAN Source: [employer] Document Id: [id number] OYSTER FISHERMAN!7 ER FISHERMAN Ame London R.N. - 09/28/2016 8:05 AM CST ED Pain Assessment ED Pain Assessment Entered On: 09/28/2016 8:13 OYSTER FISHERMAN Performed On: 09/28/2016 8:05 OYSTER FISHERMAN by AME LONDON RN Pain Assessment Pain Symptoms : Yes AME LONDON RN - 09/28/2016 8:13 OYSTER FISHERMAN Pain Scale Pain Scale Verbal 0-10 : Open AME LONDON RN - 09/28/2016 8:13 OYSTER FISHERMAN Pain Pain Assessment Grid Pain 1 Location : Wrist Laterality : Left Intensity : 3 AME LONDON RN - 09/28/2016 8:13 OYSTER FISHERMAN Source: [employer] Document Id: [id number] OYSTER FISHERMAN!11 ER FISHERMAN Hilario Raines C.N.A. - 09/28/2016 8:04 AM CST ED Treatments and Procedures ED Treatments and Procedures Entered On: 09/28/2016 8:04 OYSTER FISHERMAN Performed On: 09/28/2016 8:04 OYSTER FISHERMAN by HILARIO RAINES CNA Orthopedic Tx Orthopedic Treatment Instructions Given Treatment Site : Wrist Treatment Laterality : Left Orthopedic Treatments Done : Sling applied HILARIO RAINES CNA - 09/28/2016 8:04 OYSTER FISHERMAN [facility] Document Id: [id number] OYSTER FISHERMAN!7 ER FISHERMAN Mary Copeland - 09/28/2016 7:53 AM CST Distal Radius Fracture Patient: ERIK MICHAEL Age: 20 years Sex: Female : 1995 Author: MARY COPELAND MD Attachments: None Associated Diagnosis: Fracture Radius Closed Initial L Basic Information Additional information: Chief Complaint from Nursing Triage Note : Chief Complaint Description 09/28/2016 6:52 OYSTER FISHERMAN Chief Complaint Description 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 History of Present Illness The patient presents with left, wrist pain. The onset was just prior to arrival. Type of injury: fall. Location: Left wrist. The character of symptoms is pain and throbbing, not tingling and not numbness. The degree of pain is severe. There are exacerbating factors including movement and palpation. The relieving factor is none. Review of Systems Constitutional symptoms: Negative except as documented in HPI. ENMT symptoms: Negative except as documented in HPI. Gastrointestinal symptoms: Negative except as documented in HPI. Neurologic symptoms: Negative except as documented in HPI. Additional review of systems information: All other systems reviewed and otherwise negative. Health Status Allergies: Allergic Reactions (Selected) NKA. Past Medical/ Family/ Social History Medical history: Resolved Kidney stone ([id number]): Resolved. Comments: 10/14/2012 OYSTER FISHERMAN 9:44 OYSTER FISHERMAN - SAMUEL DIAS when she was really young. Surgical history: None ([id number]) on 01/15/2012 at 16 Years.. Family history: Not significant. Physical Examination Vital Signs: Vital Signs 09/28/2016 6:55 OYSTER FISHERMAN Temperature Core 36.9 DegC Peripheral Pulse Rate 88 /min Respiratory Rate 16 /min SpO2 98 % Systolic Blood Pressure 133 mmHg Diastolic Blood Pressure 87 mmHg BP Location Right upper . General: Alert and mild distress. Skin: Warm and dry. Head: Normocephalic. Cardiovascular: Normal peripheral perfusion. Respiratory: Respirations are non-labored. Musculoskeletal: Distal upper extremity left, wrist and tenderness, no swelling, no deformity Neurological: No focal neurological deficit observed and normal sensory observed. Psychiatric: Cooperative. Medical Decision Making Differential Diagnosis:Wrist pain, fracture, sprain, contusion. Wrist x-ray -[id number] 07:28:00 Exam: L Wrist 5vw PA/Lat/Obl/Navicular STAT Indications: fell on the ice, pain to same, no deformity ORIGINAL REPORT - 28-Sep-2016 07:30:00 EXAM: Left Wrist 4vw PA/Lat/Obl/Navicular: IMPRESSION: Transverse lucency at the distal left radial metaphysis, likely represents a nondisplaced fracture. Electronically signed by: Mirna Hogan MD [phone] 28-Sep-2016 07:30 . Procedure Procedure notes: Sugar-tong splint placed, and sling applied. Impression and Plan Diagnosis Fracture Radius Closed Initial L (Discharge, Emergency medicine, Medical) Plan Disposition: Discharged: Time 09/28/2016 07:56:00, to home. Prescriptions: Prescription [facility]: ibuprofen 200 mg oral tablet (Prescribe): 2-4 tab(s), PO, q6hr, for 7 day(s), PRN: Pain / Fever, 24 tab(s), 1 Refill(s) Clayton 5 mg-325 mg oral tablet (Prescribe): 1 to 2 tablets, PO, q4hr, for 5 day(s), PRN: Pain, 13 tab(s), 0 Refill(s). Patient was given the following educational materials: COLLES FRACTURE, No Reduction Required. Follow up with: ELSEWHERE PCP Within As Needed; Orthopedics Within As Needed. Counseled: Patient, Family, Regarding prescription, Patient indicated understanding of instructions. Electronically Signed By: MARY COPELAND MD On: 09/28/2016 08:00 AM Source: [facility] POWERCHART Document Id: [id number] ER FISHERMAN Ame London R.N. - 09/28/2016 6:52 AM CST ED Primary Assessment Document Has Been Updated ED Primary Assessment Entered On: 09/28/2016 6:57 OYSTER FISHERMAN Performed On: 09/28/2016 6:52 OYSTER FISHERMAN by AME LONDON RN Reason For Visit (As Of: 09/28/2016 06:57:50 OYSTER FISHERMAN) Problems(Active) No Chronic Problems (Cerner :NKP ) Name of Problem: No Chronic Problems ; Recorder: TYREE QUICK MD; Confirmation: Confirmed ; Classification: Medical ; Code: NKP ; Last Updated: 01/15/2012 17:47 CDT ; Life Cycle Date: 01/15/2012 ; Life Cycle Status: Active ; Vocabulary: Cerner Diagnoses(Active) UC - Wrist Injury Date: 09/28/2016 ; Diagnosis Type: Reason For Visit ; Confirmation: Complaint of ;Clinical Dx: UC - Wrist Injury ; Classification: Medical ; Clinical Service: Emergency medicine ; Code: PNED ; Probability: 0 ; Diagnosis Code: [id number] Triage Chief Complaint Description : 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 : No Is Patient Female and 13-50 no hysterectomy : Yes Status : Patient denies AME LONDON RN - 09/28/2016 6:52 OYSTER FISHERMAN Pain Assessment Pain Symptoms : Yes AME LONDON RN - 09/28/2016 6:52 OYSTER FISHERMAN Pain Scale Pain Scale Verbal 0-10 : Open AME LONDON RN - 09/28/2016 6:52 OYSTER FISHERMAN Pain Pain Assessment Grid Pain 1 Location : Wrist Laterality : Left Intensity : 8 AME LONDON RN - 09/28/2016 6:52 OYSTER FISHERMAN JORDON DCP GENERIC CODE Tracking Acuity : 3 -Urgent Tracking Group : RWHO ED AME LONDON RN - 09/28/2016 6:52 OYSTER FISHERMAN Respiratory Airway : Patent Respirations : Unlabored Respiratory Pattern : Regular AME LONDON RN - 09/28/2016 6:52 OYSTER FISHERMAN Cardiovascular Heart Rhythm : Regular Skin Color : Normal for ethnicity Skin Description : Dry Skin Temperature : Warm AME LONDON RN - 09/28/2016 6:52 OYSTER FISHERMAN Neurological Last Well Time Known : Not applicable Level of Consciousness : Alert Orientation : Appropriate for age Characteristics of Speech : Appropriate for age AME LONDON RN - 09/28/2016 6:52 OYSTER FISHERMAN ED Psychosocial Affect/Behavior : Calm, Cooperative, Appropriate Domestic Abuse Concerns : None Behavioral Health Screen/Safety Assmt : No AME LONDON RN - 09/28/2016 6:52 OYSTER FISHERMAN Gastrointestinal Nutrition ED : Adequate AME LONDON RN - 09/28/2016 6:52 OYSTER FISHERMAN Musculoskeletal Fall Prevention Education Provided : AME RANGEL RN - 09/28/2016 6:52 OYSTER FISHERMAN Social Habits Exposure to Tobacco Smoke : Care provider denies smoking in home Smoking Status : Never smoker Tobacco 2A : No Tobacco Use/Currently Using : No Tobacco Use/Last 30 Days : No Tobacco Use/Last 12 months : No AME LONDON RN - 09/28/2016 6:52 OYSTER FISHERMAN Alcohol Use Grid Alcohol Use : Yes Frequency : Occasionally AME LONDON RN - 09/28/2016 6:52 OYSTER FISHERMAN Recreational Drug Use Grid Drug Use : None AME LONDON RN - 09/28/2016 6:52 OYSTER FISHERMAN Source: [facility] POWERCHART Document Id: [id number] OYSTER FISHERMAN!63 ER FISHERMAN documented in this encounter Miscellaneous Notes Miscellaneous - Ame London R.N. - 09/28/2016 8:13 AM CST Valuables/Belongings Valuables/Belongings Entered On: 09/28/2016 8:13 OYSTER FISHERMAN Performed On: 09/28/2016 8:13 OYSTER FISHERMAN by AME LONDON RN Valuables/Belongings Valuables/Belongings Grid Valuables with Patient Clothes, Patient Valuables : Jacket, Pants, Shirt, Shoes AME LONDON RN - 09/28/2016 8:13 OYSTER FISHERMAN Source: [employer] Document Id: [id number] OYSTER FISHERMAN!5 ER FISHERMAN Miscellaneous - Ame London R.N. - 09/28/2016 8:12 AM CST Discharge Vital Signs Form Discharge Vital Signs Form Entered On: 09/28/2016 8:13 OYSTER FISHERMAN Performed On: 09/28/2016 8:12 OYSTER FISHERMAN by AME LONDON RN Vital Signs Peripheral Pulse Rate : 92 /min Systolic Blood Pressure : 133 mmHg Diastolic Blood Pressure : 85 mmHg NIBP Mean : 101 mmHg SpO2 : 99 % Height : 162.56 cm(Converted to: 5 ft 4 inch(es)) AME LONDON RN - 09/28/2016 8:12 OYSTER FISHERMAN Source: [employer] Document Id: [id number] OYSTER FISHERMAN!8 ER FISHERMAN Miscellaneous - Conversion, Historical Provider Ser - 09/28/2016 8:05 AM OYSTER FISHERMAN Coding Summary-Paper Based CODING DATE: 10/08/2016 FINAL [facility] STATUS: * Discharged to Home or Self Care PAYOR: Commercial Insurance ADMIT DX: M25.532 Pain in left wrist REASON FOR VISIT DX: M25.532 Pain in left wrist FINAL DX: PRINCIPAL: S52.592A Other fractures of lower end of left radius, initial encounter for closed fracture SECONDARY: W19.XXXA Unspecified fall, initial encounter Y92.[address] or not applicable PROCEDURES DOCTOR NAME DATE NOTE: The code number assigned matches the documented diagnosis and / or procedure in the patient's chart. However, the narrative phrase printed from the coding software may appear abbreviated, or result in slightly different terminology. Coded By: ROBERTA ZEPEDA Date Saved: 10/08/2016 10:51 am Source: [employer] Document Id: [id number] Miscellaneous - Conversion, Historical Provider Ser - 09/28/2016 8:03 AM OYSTER FISHERMAN *General Message Document Contains Addenda Addendum by REJI BURCH on September 29, 2016 09:30:33 OYSTER FISHERMAN Patient is scheduled to see Dr. Ornelas on 10/01. Patient is aware of the appointment. From: MATT MACKAY To: Orthopedic/Podiatry Homeopathic Doctor; Sent: 09/28/2016 08:03:23 OYSTER FISHERMAN ! Subject: *General Message Actions: Notify patient- refer to General Message Please contact patient to schedule an appointment for October 01 or 2015, follow up to ED visiton 09/28/16, wrist fracture. Follow up visit requested by Dr. Copeland. Source: [facility] [employer] Document Id: [id number] Miscellaneous - Ame London R.NDennise - 09/28/2016 8:00 AM CST Communication Note Communication Note Entered On: 09/28/2016 8:12 OYSTER FISHERMAN Performed On: 09/28/2016 8:00 OYSTER FISHERMAN by AME LONDON RN Communication Assessment Communication Note : sling applied AME LONDON RN - 09/28/2016 8:11 OYSTER FISHERMAN Source: [facility] [employer] Document Id: [id number] OYSTER FISHERMAN!3 ER FISHERMAN Miscellaneous - Ame London R.N. - 09/28/2016 7:50 AM CST Communication Note Communication Note Entered On: 09/28/2016 8:11 OYSTER FISHERMAN Performed On: 09/28/2016 7:50 OYSTER FISHERMAN by AME LONDON RN Communication Assessment Communication Note : fiberglass splint applied per MD and terry bandages applied per same, AME Pro cms, RN - 09/28/2016 8:09 OYSTER FISHERMAN Source: [facility] [employer] Document Id: [id number] OYSTER FISHERMAN!3 ER FISHERMAN Miscellaneous - Ame London R.N. - 09/28/2016 6:59 AM CST Communication Note Communication Note Entered On: 09/28/2016 6:59 OYSTER FISHERMAN Performed On: 09/28/2016 6:59 OYSTER FISHERMAN by AME LONDON RN Communication Assessment Communication Note : ice applied on admission AME LONDON RN - 09/28/2016 6:59 OYSTER FISHERMAN Source: [facility] [employer] Document Id: [id number] OYSTER FISHERMAN!3 ER FISHERMAN Miscellaneous - Ame London R.N. - 09/28/2016 6:42 AM CST Facility Charge Ticket 2.0 11.0 DX Facility Charge Ticket 2.0 11.0 DX Entered On: 09/28/2016 8:13 OYSTER FISHERMAN Performed On: 09/28/2016 6:42 OYSTER FISHERMAN by AME LONDON RN Facility Charge Ticket 2.0 11.0 DX ED Other Charges : Standard ED Encounter TVL Level Translated RTF : UC - Wrist Injury TVL:4 TVL Level for Facility Charge Ticket : Level 4 Arrival Mode Calc : 1 Mode of Arrival ED : Private vehicle [facility] Mode of Arrival Interpreted : Standard [facility]x Process Management : None Order Management RTF : Xray XR Wrist Left 3 or more views,09/28/16 07:02,MARY COPELAND MD Completed [facility]x Order Management : Xray - plain films 30 Minutes Critical Care : No Nursing Notes RTF : Nursing Notes ED Primary Assessment,09/28/16 06:52,AME LONDON RN ED Pain Assessment,09/28/16 08:05,AME LONDON RN Communication Note,09/28/16 08:00,AME LONDON RN Communication Note,09/28/16 07:50,AME LONDON RN Communication Note,09/28/16 06:59,LIAT, AME RN Lynx Nursing Assessment : Triage and 3-5 nursing assessments Lynx Disposition : Discharge Disposition RTF : discharge Lynx Total Points with Diagnosis Control : 9 Lynx Visit Level : 93334 Level 4 Treatments Prior to Arrival : None AME LONDON RN - 09/28/2016 8:13 OYSTER FISHERMAN Source: [facility] [employer] Document Id: [id number] OYSTER FISHERMAN!19 ER FISHERMAN documented in this encounter Plan of Treatment Not on filedocumented as of this encounter Visit Diagnoses Not on filedocumented in this encounter
--- OUTSIDE RECORDS SUMMARY | 2022-08-07 10:38 | XMS_ITS | Encounter Summary ---
:1995 Author Organization [facility] Address [address] [place] [address] Care Team Providers Name Role Phone Unavailable Primary Care Provider Unavailable Encounter Details Date Type Department Care Team Description 11/28/2012 Hospital Encounter HX NO MAPPING Provider, Historical Social History Tobacco Use Types Packs/Day Years Used Date Smoking Tobacco: Never Assessed Sex Assigned at Date Recorded Female 07/07/2018 9:07 AM CDT documented as of this encounter Medications at Time of Discharge Medication Sig Dispensed Refills Start Date End Date albuterol sulfate 90 Inhale 2 puffs every 0 01/2511/26/2017 mcg/actuation aerosol 4 (four) hours. powdr breath activated documented as of this encounter Miscellaneous Notes Miscellaneous - Conversion, Historical Provider Ser - 11/28/2012 12:00 AM [employer] SCI[employer]ES DEAN [id number] Client: [facility] After Hours ExpertRN Call ID: [id number] Patient Name: Mercedes Service Date/Time: November 28, 2012 21:29 Duration: 00:03:33 Age: 16 Y Provider: Rosa Elena Roman R.N. Pager: Birthdate: 1995 Sex: F Address: City: [place], [place] Service: [facility] CHIEF COMPLAINT / PURPOSE OF VISIT Triage nurse call: Abeba Banks (patient's parent) is calling on behalf of Brie Banks, a 16 year old woman with vomiting or nausea 16 year old daugher has been vomiting past 2.5 hours, having severe cramping, said she was throwing up blood, not sure how many times that has happened because she is in a dark basement. Is dizzy when she stands and feels she will pass out, caller states she is having a hard time keeping her eyes open. Calling from: [phone] The patient is with the caller The patient is unable to speak to the nurse HISTORY OF PRESENT ILLNESS: 1. Vomiting or nausea Currently feeling like she is going to collapse every time she stands or sits up , vomiting blood Feels faint more than a few minutes after standing or sitting up PERTINENT NEGATIVES No: current No: new confusion or inability to stay alert and awake ; new neck pain and difficulty bending the neck ; new weakness, numbness or tingling on one half of the body (an arm and leg) ; new blurred, dim or double vision ; purple or red rash/blotches that stay when pressed by a glass (purpuric rash) ; vomit that looks like ground coffee or black, sticky, tar-like stools IMPRESSION / REPORT / PLAN: 1. Vomiting or nausea Possible shock Plan: Ambulance now. Caller agrees Carepoints reviewed: ?? Follow the instructions given by the 911 or emergency binitrotoluene operator. FINAL CALL DETAILS: Deliver call summary through email - Not eligible Intended level of care if assessment was not available: Emergency department Caller verbalized an understanding of the information and instructions given Caller's primary language: Cape Verdean PERTINENT NEGATIVES No: charts accessed (none selected from list) Source: [facility] RWHXTRANSXRTFSYS Document Id: [id number] documented in this encounter Plan of Treatment Not on filedocumented as of this encounter Visit Diagnoses Not on filedocumented in this encounter
--- OUTSIDE RECORDS SUMMARY | 2022-08-07 10:38 | XMS_ITS | Encounter Summary ---
:1995 Author Organization [facility] Address [address] [place] [address] Care Team Providers Name Role Phone Unavailable Primary Care Provider Unavailable Encounter Details Date Type Department Care Team Description 11/26/2017 Hospital Encounter Department of Jennifer Sargent, Normal First Radiology [place] [facility] [place] [address] [place] [address] [address] [place] [id number] Social History Tobacco Use Types Packs/Day [...] End Date Take 1 tablet by 0 wwupnoq-hejbiueq-ylfq mouth daily. fumarate-FA (for_VINATE M) 27-1 mg per tablet documented as of this encounter Plan of Treatment Not on filedocumented as of this encounter Procedures Procedure Name Priority Date/Time Associated Comments Diagnosis US OB FIRST RAD - Routine 11/26/2017 2:36 Normal First Results for this TRIMESTER AND (most inpatients PM SWEET DOUGH MIXER procedure are in TRANSVAGINAL and all the results outpatients) section. documented in this encounter Results US OB First Trimester and Transvaginal (11/26/2017 2:36 PM SWEET DOUGH MIXER) Anatomical Region Laterality Modality Body N/A Ultrasound Specimen (Source) Anatomical Collection Method Collection Time Re ceived Time Location / / Volume Laterality 11/26/2017 2:45 PM SWEET DOUGH MIXER Impressions 11/26/2017 2:48 PM SWEET DOUGH MIXER IMPRESSION: Single living intrauterine gestation. Estimated gestational age 8 weeks 0 days. Narrative 11/26/2017 2:48 PM SWEET DOUGH MIXER EXAM: US OB FIRST TRIMESTER AND TRANSVAGINAL COMPARISON: None FINDINGS: Gestational age and OK by LMP or OB/EHR assignment: ??8 weeks 1 day, OK 07/07/2018 Age and OK by current ultrasound measur ements: ??8 weeks 0 days, OK 07/08/2018. Intra-uterine: Single living intrauterin e embryo. Yolk sac present. [place]-rump length 16 mm. heart rate: 175 bpm. Maternal ovaries/adnexae: Unremarkable Procedure Note Dereje Coombs M.D. - 11/26/2017Formatt ing of this note might be different from the original. EXAM: US OB FIRST TRIMESTER AND TRANSVAG INAL COMPARISON: None FINDINGS: Gestational age and OK by LMP or OB/EHR assignment: 8 weeks 1 day, OK 07/07/2018 Age and OK by current ultrasound measur ements: 8 weeks 0 days, OK 07/08/2018. Intra-uterine: Single living intrauterin e embryo. Yolk sac present. [place]-rump length 16 mm. heart rate: 175 bpm. Maternal ovaries/adnexae: Unremarkable IMPRESSION: Single living intrauterine g estation. Estimated gestational age 8 weeks 0 days. Jennifer Sargent APRN, C.N.P. IMG OB US PROCEDURES documented in this encounter Visit Diagnoses Diagnosis Encounter For Supervision Of Normal Firs t Unspecified Trimester (HCC) documented in this encounter
--- OUTSIDE RECORDS SUMMARY | 2022-08-07 10:38 | XMS_ITS | Encounter Summary ---
:1995 Author Organization [facility] Address [address] [place] [address] Care Team Providers Name Role Phone Unassigned, Pcp Primary Care Provider Unavailable Reason for Visit Reason Onset Date Comments Triage 02/24/2018 sore throat Encounter Details Date Type Department Care Team Description 02/24/2018 Clinical Department of Abeba Escobar Triage (so re throat Communication Obstetrics and A, R.N. ) Gynecology in [address] [address] [place], [place] [phone] (Work) [phone] Social History Tobacco Use Types Packs/Day Years Used Date Smoking Tobacco: Never Smokeless Tobacco: Never Alcohol Use Standard Drinks/Week Comments No 0 (1 standard drink = 0.6 oz pure alcoho l) Sex Assigned at Date Recorded Female 07/07/2018 9:07 AM CDT documented as of this encounter Miscellaneous Notes Telephone Encounter - Abeba Escobar, R.N. - 02/24/2018 8:32 AM CDT HISTORY OF PRESENT ILLNESS Sore throat 21w0d The following portions of the patient's history were reviewed and updated as appropriate: allergies,current medications, family history, medical history, social history, surgical history and problem list. ASSESSMENT / PLAN Brie is calling 21w0d and states having a sore throat x3 days. She states she woke up this morning and can barely swallow due to throat pain and feels as though it is swollen. She is able to swallow and able to talk clearly on the phone. She is also having nasal congestion. Disposition/Recommendation: patient to schedule appointment and patient transferred to the appointment desk Education: not applicable Caller agreeable to plan of care: yes The following references were used: Telephone triage protocols for nurses 4 th edition by Pricilla Natarajan cold symptoms pg 408 Patient wondering what she can try now. Patient can suck on hard candy, frozen or hot/warm fluids. Per [facility] journal-patient can use chloraseptic spray. She states she has ricola lozenges. Instructed to read label for ingredients. documented in this encounter Plan of Treatment Not on filedocumented as of this encounter Visit Diagnoses Not on filedocumented in this encounter Care Teams Size Marker Relationship Specialty Start Date End Date Unassigned, Pcp PCP - General Family Medicine 02/24/18 documented as of this encounter
--- OUTSIDE RECORDS SUMMARY | 2022-08-07 10:38 | XMS_ITS | Encounter Summary ---
:1995 Author Organization [facility] Address [address] [place] [address] Care Team Providers Name Role Phone Unavailable Primary Care Provider Unavailable Encounter Details Date Type Department Care Team Description 10/01/2016 Hospital Encounter HX [facility] Johny Lowe M.D. [address] [place], [place] [phone] (Wo rk) Social History Tobacco Use Types Packs/Day Years Used Date Smoking Tobacco: Never Assessed Sex Assigned at Date Recorded Female 07/07/2018 9:07 AM CDT documented as of this encounter Last Filed Vital Signs Vital Sign Reading Time Taken Comments Blood Pressure - - Pulse - - Temperature - - Respiratory Rate - - Oxygen Saturation - - Inhaled Oxygen Concentration - - Weight - - Height 163 cm (5' 4.17) 10/01/2016 1:33 PM GEOTECHNICIAN Body Mass Index - - documented in this encounter Medications at Time of Discharge Medication Sig Dispensed Refills Start Date End Date albuterol sulfate 90 Inhale 2 puffs every 0 01/2511/26/2017 mcg/actuation aerosol 4 (four) hours. powdr breath activated documented as of this encounter Consult Notes Anjel Shoemaker M.D. - 10/01/2016 12:52 PM CST [id number] CHIEF COMPLAINT/REASON FOR VISIT Left wrist injury. HISTORY OF PRESENT ILLNESS Erik is a pleasant 20-year-old right hand-dominant female who, on 09/28/2016, was in her driveway putting down some salt and slipped on some ice and fell on her outstretched left upper extremity. She did not hit her head. There was no loss of consciousness. Upon landing, she noticed pain in her wrist immediately. She called her fiance, who was on his way to work at the time. He turned around, picked her up and brought her to the [facility]. X-rays revealed a nondisplaced transverse fracture in the metaphyseal region of the left distal radius. She was placed in a splint and instructed to follow up with Orthopedics. The patient denies hitting her head. There are no other injuries elsewhere in her body. She denies pain in the elbow or the shoulder. She has been in a sugar-tong splint since her evaluation in the emergency department. She has never had any prior injuries to this wrist before. PAST MEDICAL/SURGICAL HISTORY None. MEDICATIONS Please review the EMR for complete list. ALLERGIES None. SOCIAL HISTORY Patient is engaged. She works at [employer] here in [facility]. Does do a lot of repetitive work with her upper extremities. She does not smoke. PHYSICAL EXAMINATION On examination, Ms. Banks is well-appearing, in no acute distress. Has a pleasant demeanor. She is accompanied by her mother. She has an Orthoglass sugar-tong splint on her left upper extremity. This wasremoved. There are a couple areas where there is some erythema from where the splint had been pinching in on her skin, but there are no wounds. There are no ulcerations. She reports normal sensation tolight touch throughout all dermatomes of her left hand. She has a palpable 2+ radial pulse. She is tender over the distal radius. She does experience some pain in the wrist when I have her do active range of motion of the elbow. Denies any tenderness or pain around the shoulder. She does have generalized soft tissue swelling throughout. DIAGNOSTICS I did get x-rays of the elbow and the forearm due to the patient's complaint of wrist pain with elbow range of motion. X-rays of the elbow and forearm are within normal limits. No evidence of abnormalities. No evidence of fracture. No abnormal alignment is noted. I did review the x-rays of the wrist obtained September 28, which show a nondisplaced transverse fracture, lucency to the metaphyseal region extraarticular of the left distal radius. No evidence of ulnar styloid fracture. No evidence of scaphoid fracture. IMPRESSION/REPORT/PLAN Nondisplaced metaphyseal extraarticular fracture, left distal radius. PLAN: I reviewed with Erik that I recommend we treat her conservatively and place her in a short-arm cast, which she was agreeable to. I placed a short-arm cast on the left upper extremity today. The patient tolerated that well. Post casting x-rays are pending at the time of this dictation. Goingforward, the patient will return to see me in 6 weeks. She is instructed to remain strict nonweightbearing on the left upper extremity. She is to keep the cast clean and dry. She will return to see me at 6 weeks. We will get the cast off and get 2- view x-rays of the left wrist at that time. We will likely transition her into a Velcro wrist splint and have her start doing range of motion and start early strengthening exercises with therapy. Anjel Shoemaker M.D./serena Electronically Signed By: ANJEL SHOEMAKER MD On: 10/02/2016 02:49 PM Source: [facility] MHSDOLBEYNONRADSYS Document Id: [id number] ECHNICIAN documented in this encounter Miscellaneous Notes Miscellaneous - Anjel Shoemaker M.D. - 10/01/2016 2:18 PM CST Ambulatory Patient Summary [address] [place], [place] [id number] Visit Information Name: ERIK BANKS [facility] Number: [id number] Current Date: 10/01/2016 14:18:33 Physicians Attending Provider: ANJEL SHOEMAKER MD Primary Care Provider: PCP, ELSEWHERE ERIK BANKS has been given the following list of follow-up instructions, medication list, and patient education materials: Follow-up Instructions Your Medications Here is a list of your medications. It is important to take your medications as directed. Use a pillbox or chart to help remind you to take your medications. Please let your doctor or nurse know if you have problems taking your medications. Medication/Strength How to Take Indications/Special Instructions/Comments/Notes for Patient Medication Changes/Routing albuterol (albuterol CFC free 90 mcg/inh inhalation aerosol) 2 puff(s), Inhalation, every 4 hours HYDROcodone-acetaminophen ([place] 5 mg-325 mg oral tablet) 1 to 2 tablets, Oral, every 4 hours as needed for Pain x 5 day(s) No more than 4,000mg acetaminophen/24hrs ibuprofen (ibuprofen 200 mg oral tablet) 2-4 tab(s), Oral, every 6 hours as needed for Pain / Fever x 7 day(s) norgestimate-ethinyl estradiol (Sprintec 0.25 mg-35 mcg oral tablet) 1, Oral, once a day Stop Taking the Following Medications: Medication list as of 10-01-16 14:18 Attention: If you have any medications at home that are not on this list, DO NOT take them until youcontact your provider for clarification. Give a copy of your medication list to your primary care provider. Update your medication list any time medications or doses are changed and carry your medication list at all times in case of emergency. Electronically Signed By: ANJEL SHOEMAKER MD Signed On:01-OCT-2016 14:18:29 Your Allergies & Intolerances Substance Reaction Symptoms Category Comments No Known Allergies Drug Your Problem List Problem Status Onset Comments No Chronic Problems Active Your Upcoming Appointments Date Time Location Provider No Appointments found Attention: Contact your local Clinic if further appointment detail needed. Consider Using Patient Online Services Patient Online [...] if you dont have one. Go to [email or web address] and click on Create Your Account. Then, follow the directions to complete the online form. Youll be asked for your [facility] number which you can find at the top of this document. Your Goals/Additional instructions: Source: [facility] POWERCHART Document Id: [id number] ECHNICIAN Miscellaneous - Anjel Shoemaker M.D. - 10/01/2016 2:18 PM CST Ambulatory Discharge Medication List [facility] [address], [address] [place], [place] [id number] Visit Information Name: ERIK BANKS [facility] Number: [id number] Current Date: 10/01/2016 14:18:32 Attending Provider: ANJEL SHOEMAKER MD Primary Care Provider: PCP, ELSEWHERE ERIK BANKS has been given the following list of medications: Your Medications It is important to take your medications as directed. Use a pill box or chart to help remind you to take your medications. Please let your doctor or nurse know if you have problems taking your medications. Medication/Strength How to Take Indications/Special Instructions/Comments/Notes for Patient Medication Changes/Routing albuterol (albuterol CFC free 90 mcg/inh inhalation aerosol) 2 puff(s), Inhalation, every 4 hours HYDROcodone-acetaminophen ([place] 5 mg-325 mg oral tablet) 1 to 2 tablets, Oral, every 4 hours as needed for Pain x 5 day(s) No more than 4,000mg acetaminophen/24hrs ibuprofen (ibuprofen 200 mg oral tablet) 2-4 tab(s), Oral, every 6 hours as needed for Pain / Fever x 7 day(s) norgestimate-ethinyl estradiol (Sprintec 0.25 mg-35 mcg oral tablet) 1, Oral, once a day Stop Taking the Following Medications: Medication list as of 10-01-16 14:18 Attention: If you have any medications at home that are not on this list, DO NOT take them until youcontact your provider for clarification. Give a copy of your medication list to your primary care provider. Update your medication list any time medications or doses are changed and carry your medication list at all times in case of emergency. Electronically Signed By: ANJEL SHOEMAKER MD Signed On:01-OCT-2016 14:18:29 Additional Information: Source: [facility] POWERCHART Document Id: [id number] ECHNICIAN Miscellaneous - Stacy Mai, L.P.N. - 10/01/2016 1:33 PM CST Adult Paper Final Inspector Intake/History Adult Paper Final Inspector Intake/History Entered On: 10/01/2016 13:34 GEOTECHNICIAN Performed On: 10/01/2016 13:33 GEOTECHNICIAN by STACY MAI LPN Intake Chief Complaint : left wrist injury Height : 163 cm(Converted to: 5 ft 4 inch(es), 64 inch(es)) STACY MAI LPN - 10/01/2016 13:33 GEOTECHNICIAN General Info Information Given By : Patient Languages : Russian Is Patient Female and 13-50 no hysterectomy : Yes Status : Patient denies Are you ? : No STACY MAI LPN - 10/01/2016 13:33 GEOTECHNICIAN Subjective Pain Symptoms : Yes STACY MAI LPN - 10/01/2016 13:33 GEOTECHNICIAN Pain Scale Pain Scale Verbal 0-10 : Open STACY MAI LPN - 10/01/2016 13:33 GEOTECHNICIAN Pain Pain Assessment Grid Pain 1 Location : Wrist Laterality : Left Intensity : 4 STACY MAI LPN - 10/01/2016 13:33 GEOTECHNICIAN Dependent Habits Exposure to Tobacco Smoke : Care provider denies smoking in home Smoking Status : Never smoker Tobacco 2A : No Tobacco Use/Currently Using : No Tobacco Use/Last 30 Days : No Tobacco Use/Last 12 months : No STACY MAI LPN - 10/01/2016 13:33 GEOTECHNICIAN Caffeine Use Grid Caffeine Use : None STACY MAI LPN - 10/01/2016 13:33 GEOTECHNICIAN Recreational Drug Use Grid Drug Use : None STACY MAI LPN - 10/01/2016 13:33 GEOTECHNICIAN Source: [facility] POWERCHART Document Id: [id number] GEOTECHNICIAN!33 ECHNICIAN documented in this encounter Plan of Treatment Not on filedocumented as of this encounter Visit Diagnoses Not on filedocumented in this encounter
--- OUTSIDE RECORDS SUMMARY | 2022-08-07 10:38 | XMS_ITS | Encounter Summary ---
:1995 Author Organization [facility] Address [address] [place] [address] Care Team Providers Name Role Phone Unavailable Primary Care Provider Unavailable Reason for Referral Outpatient (Routine) - Closed Specialty Diagnoses / Procedures Referred By Contact Refer red To Contact Obstetrics and Jennifer Sargent APRN, [facility] Gynecology C.N.P. [address] [place] [address] Referral ID Status Reason Start Date Expiration Date Visits Requ ested Visits Authorized [id number] Closed 01/28/2018 07/27/2018 1 1 Reason for Visit Outpatient (Routine) - Closed Specialty Diagnoses / Procedures Referred By Contact Refer red To Contact Obstetrics Jennifer Davis APRN, [facility] Gynecology C.N.P[facility] [address] [place] [address] Referral ID Status Reason Start Date Expiration Date Visits Requ ested Visits Authorized [id number] Closed 2017 06/22/2018 1 1 Encounter Details Date Type Department Care Team Description 01/28/2018 Routine Department of Jennifer Sargent Normal F irst Obstetrics and MARIA LUISA, C.N.P. (Primary Gynecology in [place] [address] [place], [place] [address] [facility] [address] [place], [place] [phone] (Work) [phone] Social History Tobacco Use Types Packs/Day Years Used Date Smoking Tobacco: Never Smokeless Tobacco: Never Alcohol Use Standard Drinks/Week Comments No 0 (1 standard drink = 0.6 oz pure alcoho l) Sex Assigned at Date Recorded Female 07/07/2018 9:07 AM CDT documented as of this encounter Last Filed Vital Signs Vital Sign Reading Time Taken Comments Blood Pressure 114/72 01/28/2018 1:04 PM CDT Pulse - - Temperature - - Respiratory Rate - - Oxygen Saturation - - Inhaled Oxygen Concentration - - Weight 104 kg (230 lb 2.6 oz) 01/28/2018 1:04 PM CDT Height - - Body Mass Index 39.29 11/13/2016 11:23 AM CHIEF 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 - 01/28/2018 1:15 PM CDT Nausea has improved. Patient reports she is feeling dizzy at times. She also reports feeling cold, numb fingertips, notices that tips to be white or bluish. This mainly happens when she is sitting at her desk at work. Is better when she is standing. + quickening. No vaginal bleeding, cramping, or leaking of fluid. Declines screening. documented in this encounter Plan of Treatment Scheduled Referrals Name Type Priority Associated Order Schedule Diagnoses Obstetrics and Outpatient Referral Routine Expect ed: Gynecology office 02/27/2018 visit (clinic) (Approximate) , Expires: 01/28/2021 documented as of this encounter Visit Diagnoses Diagnosis Encounter For Supervision Of Normal Firs t Unspecified Trimester (HCC) - Primary documented in this encounter
--- OUTSIDE RECORDS SUMMARY | 2022-08-07 10:38 | XMS_ITS | Encounter Summary ---
:1995 Author Organization [facility] Address [address] [place] [address] Care Team Providers Name Role Phone Unassigned, Pcp Primary Care Provider Unavailable Reason for Visit Reason Comments Sore Throat & congestion Appointment Request (Routine) - Closed Specialty Diagnoses / Procedures Referred By Contact Refer red To Contact Family Medicine Referral ID Status Reason Start Date Expiration Date Visits Requ ested Visits Authorized [id number] Closed 02/24/2018 02/24/2019 1 1 Encounter Details Date Type Department Care Team Description 02/24/2018 Office Visit Department of Family Kirill Cates M.D. Pharyngitis Acute Medicine, [place] [address] [address] [facility], in [facility] [phone] [address] [facility] [phone] [place], [place] (Work) [phone] Social History Tobacco Use Types Packs/Day Years Used Date Smoking Tobacco: Never Smokeless Tobacco: Never Alcohol Use Standard Drinks/Week Comments No 0 (1 standard drink = 0.6 oz pure alcoho l) Sex Assigned at Date Recorded Female 07/07/2018 9:07 AM CDT documented as of this encounter Last Filed Vital Signs Vital Sign Reading Time Taken Comments Blood Pressure 110/74 02/24/2018 10:04 AM CDT Pulse 88 02/24/2018 10:04 AM CDT Temperature 36.5 ??C (97.7 ??F) 02/24/2018 10:04 AM CDT Respiratory Rate 18 02/24/2018 10:04 AM CDT Oxygen Saturation - - Inhaled Oxygen Concentration - - Weight 105 kg (232 lb 9.4 oz) 02/24/2018 10:04 AM CDT Height - - Body Mass Index 39.71 11/13/2016 11:23 AM [employer] documented in this encounter Progress Notes Kirill Cates M.D. - 02/24/2018 10:15 AM CDT HPI This 22 y.o. female patient presents today at 21 weeks gestation with sore throat for 3 day(s). Painis described as scratchy with difficulty swallowing. She does not have fever or dyspnea. Additional symptoms are nasal congestion and dry cough. Sick contacts have not been reported. Thye have the following medical conditions: just cough drops as patient didn't know what she could use safely while . Current Outpatient Prescriptions on File Prior to Visit Medication Sig Dispense Refill ??? pibaazj-lajusbgp-qeve fumarate-FA (for_VINATE M) 27-1 mg per tablet Take 1 tablet by mouth daily. No current facility-administered medications on file prior to visit. Allergies Allergen Reactions ??? Banana GI intolerance Raw banana. Severe stomach pain Patient Active Problem List Diagnosis ??? Normal First ROS: GENERAL: No fevers, no fatigue. HEENT: Endorses sinus congestion, no ear pain. Sore throat PULMONARY: Endorses dry cough, no wheeze. CARDIOVASCULAR: Denies chest pain, dyspnea or edema. GI: No diarrhea, no blood in stools. : No pain with urination, rest as above. M/S: no myalgia or arthralgia. Neuro: No numbness or pain in the extremities SKIN: No rash, no concerning macule change. OBJECTIVE Vitals: 02/24/18 1004 BP: 110/74 Pulse: 88 Resp: 18 Temp: 36.5 ??C GENERAL: Patient is comfortable, polite and in no distress. HEENT: Bilateral TM visualized and are without erythema or effusion. Inflamed nasal mucosa with drainage. Moist oral mucosa with pharyngeal erythema. Tonsils are 2+ in size without exudate. HEART: Normal rate and rhythm. Good S1/S2 without rubs, murmurs or gallops. LUNGS: Clear to the bases. No wheeze, rale or crackle noted. NEURO: Grossly intact with no evidence of impairment. ABDOMEN: Gravid abdomen. Results for orders placed or performed in visit on 02/24/18 Rapid Strep A Screen Result Value Ref Range Rapid Strep A Screen Negative Negative ASSESSMENT/PLAN: #1 Pharyngitis Acute Patient describes 3 days of sore throat, nasal drainage and dry cough thought to be viral in etiology. Rapid strep negative. Encouraged patient to get plenty of rest and to drink fluids. She may utilize tylenol for pain relief and continue cough drops. I expect this will resolve on its own in the coming days to week. Follow up as needed. documented in this encounter Plan of Treatment Not on filedocumented as of this encounter Procedures Procedure Name Priority Date/Time Associated Diagnosis Comme nts RAPID STREP A Routine 02/24/2018 10:27 AM Pharyngitis Acute Re sults for this SCREEN CDT procedure are i n the results section. BACTERIAL CULTURE, Routine 02/24/2018 10:26 AM Re sults for this THROAT CDT procedure are i n the results section. documented in this encounter Results Rapid Strep A Screen (02/24/2018 10:27 AM CDT) athologist Signature Rapid Strep A Negative Negative 02/24/2018 [facility] Screen 10:37 AM CDT [facility] Specimen Anatomical Collection Method Collection Time Receive d Time (Source) Location / / Volume Laterality Varies (Throat) 02/24/2018 10:27 02/25/20 18 AM CDT 10:28 AM CDT Kirill Cates M.D. LAB MICROBIOLOGY - GENERAL O RDERABLES Performing Organization Address City/[facility]/ZIP Code Phon e Number [address] [id number] [place] [facility] Bacterial Culture, Throat (02/24/2018 10:26 AM CDT) [facility] Method Time Signature Throat No growth of 02/26/2018 [facility] Culture Streptococcus 1:36 PM CDT [facility] Specimen Anatomical Collection Method Collection Time Receive d Time (Source) Location / / Volume Laterality Throat Swab 02/24/2018 10:26 02/24/2018 3:25 AM CDT PM CDT Kirill Cates M.D. LAB MICROBIOLOGY - GENERAL O RDERABLES Performing Organization Address City/[facility] Phon e Number [address] [place] [address] [facility] documented in this encounter Visit Diagnoses Diagnosis Pharyngitis Acute - Primary documented in this encounter Care Teams Putter In Relationship Specialty Start Date End Date Unassigned, Pcp PCP - General Family Medicine 02/24/18 documented as of this encounter
--- OUTSIDE RECORDS SUMMARY | 2022-08-07 10:38 | XMS_ITS | Encounter Summary ---
:1995 Author Organization [facility] Address [address] [place] [address] Care Team Providers Name Role Phone Unavailable Primary Care Provider Unavailable Reason for Referral Outpatient (Routine) - Closed Specialty Diagnoses / Procedures Referred By Contact Refer red To Contact Obstetrics and Seema Moreland APRN, [facility] C.N[facility]P. [address] [place] [address] Referral ID Status Reason Start Date Expiration Date Visits Requ ested Visits Authorized [id number] Closed 11/26/2017 05/25/2018 1 1 ING MACHINE OPERATOR Reason for Visit Outpatient (Routine) - Closed Specialty Diagnoses / Procedures Referred By Contact Refer red To Contact Obstetrics and Diagnoses Encounter For Supervision Of Normal First Unspecified Trimester (HCC) Seema Moreland APRN, [facility] C.N.P. [address] [place] [address] Referral ID Status Reason Start Date Expiration Date Visits Requ ested Visits Authorized [id number] Closed 11/05/2017 05/04/2018 1 1 Encounter Details Date Type Department Care Team Description 11/26/2017 Initial Department of Obstetrics Seema Moreland APRN, [place]: 8w1d and Gynecology in [facility] C.N.P. [place], [place] [address] [facility] [address] [place] [phone] (Wo rk) Social History Tobacco Use Types Packs/Day Years Used Date Smoking Tobacco: Never Smokeless Tobacco: Never Alcohol Use Standard Drinks/Week Comments No 0 (1 standard drink = 0.6 oz pure alcoho l) Sex Assigned at Date Recorded Female 07/07/2018 9:07 AM CDT documented as of this encounter Last Filed Vital Signs Vital Sign Reading Time Taken Comments Blood Pressure 116/70 11/26/2017 2:54 PM HINGING MACHINE OPERATOR Pulse - - Temperature - - Respiratory Rate - - Oxygen Saturation - - Inhaled Oxygen Concentration - - Weight 102 kg (224 lb 10.4 oz) 11/26/2017 2:54 PM HINGING MACHINE OPERATOR Height - - Body Mass Index 38.35 11/13/2016 11:23 AM HINGING MACHINE OPERATOR documented in this encounter H&P Notes Seema Moreland, MARIA LUISA, C.N.P. - 11/26/2017 3:00 PM CST SUBJECTIVE CHIEF COMPLAINT / REASON FOR VISIT Erik Banks is a 21 y.o. new ob visit. Patient's last menstrual period was 09/30/2017 (lmp unknown). Her Estimated Date of Delivery: 07/07/18 determined by LMP consistent with 8 week ultrasound. Gestational age is 8w1d. She is a primip . Relationship with MALCOLMLuiza Kang: significant other, living together, they are getting in February! Patient plans to bottle feed. HISTORY OF PRESENT CONDITION OB History Para Term AB Living 1 SAB TAB Ectopic Molar Multiple Live Births # Outcome Date GA Lbr Alexis/2nd Weight Sex Delivery Anes PTL Lv 1 Current Genetic Screen: reviewed Past Medical History: Diagnosis Date ??? Stone Kidney as a child ??? Varicella chicken pox and shingles No past surgical history on file. Family History Problem Relation Age of Onset ??? Cervical cancer Mother ??? Cancer Maternal Grandfather ??? Hypertension Maternal Grandfather ??? Heart attack Maternal Grandfather Social History Social History ??? Marital status: Single Spouse name: N/A ??? Number of children: N/A ??? Years of education: N/A Social History Main Topics ??? Smoking status: Never Smoker ??? Smokeless tobacco: Never Used ??? Alcohol use No ??? Drug use: No ??? Sexual activity: Not Asked Other Topics Concern ??? None Social History Narrative ??? None No Known Allergies Medications the Patient Reported Taking albuterol sulfate 90 mcg/actuation aerosol powdr breath activated (Discontinued) REVIEW OF SYSTEMS A comprehensive review of systems was negative. Does have concern about her weight. OBJECTIVE VITAL SIGNS Blood Pressure: (116)/(70) 116/70 Weight: [101.9 kg] 101.9 kg PHYSICAL EXAM Physical General Exam HEENT: Normal Thyroid: Normal (Comment: OK) Lymph Nodes: Normal Neurological: Normal Skin: Normal Pelvic: Vulva: Normal Vagina: Normal Cervix: Normal DIAGNOSTICS I have reviewed the OB ultrasound(s) No history of pap smears. Pap today ASSESSMENT / PLAN Expected Total Weight Gain: 5 kg-9 kg Initial labs: ordered vitamins: will take [id number] Problem list reviewed and updated. Options for genetic screening discussed: Patient has questions about Holland test. Discussed what isavailable, given pamphlet for further review. Role of ultrasound in discussed and 2nd trimester ultrasound ordered. Consults ordered: None Follow up in 4 weeks. Pap today PATIENT EDUCATION Ready to learn, barriers to learning: none; learning preferences include listening. Explained diagnosis and treatment plan; patient expressed understanding of the content. Seema Moreland APRN, C.N.P. ING MACHINE OPERATOR documented in this encounter Plan of Treatment Scheduled Referrals Name Type Priority Associated Order Schedule Diagnoses Obstetrics and Outpatient Referral Routine Expect ed: Gynecology office 2017 visit (clinic) (Approximate) , Expires: 11/26/2020 documented as of this encounter Procedures Procedure Name Priority Date/Time Associated Comments Diagnosis IRIS MICROSCOPIC, U Routine 11/26/2017 4:30 PM Re sults for this HINGING MACHINE OPERATOR procedure are i n the results section. URINALYSIS WITH Routine 11/26/2017 4:30 PM Normal First Result s for this MICROSCOPIC IF HINGING MACHINE OPERATOR procedure are in INDICATED, U the results section. BACTERIAL CULTURE, Routine 11/26/2017 4:30 PM Normal First Res ults for this AEROBIC + SUSC, URINE HINGING MACHINE OPERATOR proced ure are in the results section. SYPHILIS TOTAL AB W/ Routine 11/26/2017 4:20 PM Normal First R esults for this REFLEX S HINGING MACHINE OPERATOR procedure are i n the results section. HIV-1/-2 AG AND AB Routine 11/26/2017 4:20 PM Normal First Res ults for this SCREEN HINGING MACHINE OPERATOR procedure are i n the results section. ABORH, RBC Routine 11/26/2017 4:20 PM Normal First Results f or this HINGING MACHINE OPERATOR procedure are i n the results section. RUBELLA ANTIBODIES, Routine 11/26/2017 4:20 PM Normal First Re sults for this IGG HINGING MACHINE OPERATOR procedure are i n the results section. HEPATITIS B SURFACE Routine 11/26/2017 4:20 PM Normal First Re sults for this ANTIGEN HINGING MACHINE OPERATOR procedure are i n the results section. CBC WITHOUT Routine 11/26/2017 4:20 PM Normal First Results f or this DIFFERENTIAL, B HINGING MACHINE OPERATOR procedure ar e in the results section. ANTIBODY SCREEN, B Routine 11/26/2017 4:20 PM Normal First Res ults for this HINGING MACHINE OPERATOR procedure are i n the results section. CHLAMYDIA/GONORRHOEAE Routine 11/26/2017 4:18 PM Normal First Results for this AMPLIFIED RNA HINGING MACHINE OPERATOR procedure are in the results section. PATHOLOGY NUCLEAR PLANT TECHNICAL ADVISOR Routine 11/26/2017 12:00 Normal First Results fo r this CYTOLOGY AM HINGING MACHINE OPERATOR procedure are i n the results section. documented in this encounter Results US [...] Posterior Amniotic Fluid: Subjectively normal in v robinaume. Age by current ultrasound measurements: ??19 weeks [...] anatomy survey completed and no anomalies identified. Seema Moreland APRN, C.N.P. IMG OB US PROCEDURES Iris Microscopic, U (11/26/2017 4:30 PM HINGING MACHINE OPERATOR) P athologist Signature White Blood Occ-3 /hpf 11/26/2017 [facility] Cells 4:43 PM HINGING MACHINE OPERATOR [facility] Comment: ----REFERENCE VALUE---- Males: 0-3 Females: 0-10 Unknown: 0-10 Red Blood Cells None Seen 0 - 2 /hpf 11/26/2017 4:43 PM HINGING MACHINE OPERATOR [facility] Mucus Present /hpf 11/26/2017 4:43 PM HINGING MACHINE OPERATOR [facility] Squamous Epithelial Occ-3 /hpf 11/26/2017 4:43 PM C [facility] [place] [facility] Specimen Anatomical Collection Method Collection Time Receive d Time (Source) Location / / Volume Laterality Urine 11/26/2017 4:30 PM 8 4:30 HINGING MACHINE OPERATOR PM HINGING MACHINE OPERATOR Seema Moreland APRN C.N.P. LAB URINE ORDERABLES Performing Organization Address City/State/ZIP Code Phon e Number [facility] [address] [facility] [place] [address] [facility] (ABNORMAL) Urinalysis with Microscopic if Indicated (11/26/2017 4:30 PM HINGING MACHINE OPERATOR) athologist Signature Source Midstream 11/26/2017 [facility] 4:43 PM [facility] Clarity Cloudy (A) Clear 11/26/2017 [facility] 4:43 PM [facility] Color Yellow 11/26/2017 [facility] 4:[address] [facility] [place] [facility] Comment: ----REFERENCE VALUE---- Colorless Yellow Evangelina Blood Negative Negative 11/26/2017 4:43 PM [facility] Nitrite Negative Negative 11/26/2017 4:43 PM [facility] [place] [facility] Leukocyte Esterase Trace (A) Negative 11/26/2017 4:43 P M [facility] Protein, U Negative mg/dL 11/26/2017 4:43 PM [facility] Comment: ----REFERENCE VALUE---- Negative Trace Glucose Negative Negative mg/dL 11/26/2017 4:43 PM HINGING MACHINE OPERATOR [facility] Ketone Negative Negative mg/dL 11/26/2017 4:43 PM HINGING MACHINE OPERATOR [facility] [place] Bilirubin Negative Negative 11/26/2017 4:43 PM [facility] pH 7.5 5.0 - 8.0 11/26/2017 4:43 PM [facility] Specific [place] 1.015 1.001 - 1.035 11/26/2017 4:43 PM HINGING MACHINE OPERATOR [facility] [place] Urobilinogen 0.2 0.2 - 1.0 11/26/2017 4:43 PM HINGING MACHINE OPERATOR [facility] [place] [facility] Specimen Anatomical Collection Method Collection Time Receive d Time (Source) Location / / Volume Laterality Urine (Urine, 11/26/2017 4:30 PM 11/26/19 18 4:30 Clean Catch) HINGING MACHINE OPERATOR PM HINGING MACHINE OPERATOR Kylie Tejada APRN.N.P. LAB URINE ORDERABLES Performing Organization Address City/State/ZIP Code Phon e Number [facility] [address] [place] [address] [facility] Bacterial Culture, Aerobic + Susc, Urine Urine, Midstream (11/26/2017 4:30 PM HINGING MACHINE OPERATOR) [facility] gist Method Time Signature Bacterial No growth 11/27/2017 [facility] Culture, after 1 day 3:31 PM [facility] Urine [facility] Specimen Anatomical Collection Method Collection Time Receive d Time (Source) Location / / Volume Laterality Urine (Urine, 11/26/2017 4:30 PM 11/26/19 18 9:52 Midstream) HINGING MACHINE OPERATOR PM HINGING MACHINE OPERATOR Comment: Specimen Source Site: Urine Seema Moreland APRN C.N.P. LAB MICROBIOLOGY - GENERAL O RDERABLES Performing Organization Address City/[facility]/ZIP Code Phon e Number [facility] [address] [facility] [address] [facility] Syphilis IgG Antibody with Reflex (11/26/2017 4:20 PM HINGING MACHINE OPERATOR) athologist Signature Syphilis IgG Negative Negative 11/29/2017 [facility] Ab, S 2:43 PM HINGING MACHINE OPERATOR [facility] Comment: No serologic evidence of exposu re to syphilis. Specimen Anatomical Collection Method Collection Time Receive d Time (Source) Location / / Volume Laterality Blood (Blood, 11/26/2017 4:20 PM 11/26/19 18 9:54 Venous) HINGING MACHINE OPERATOR PM HINGING MACHINE OPERATOR Seema Moreland APRN C.N.P. LAB BLOOD ADD-ON Performing Organization Address City/State/ZIP Code Phon e Number [address] [address] [facility] Rubella Antibodies, IgG (11/26/2017 4:20 PM HINGING MACHINE OPERATOR) Analysis Performed At Patho logist Time Signature Rubella Ab, Equivocal 11/29/2017 [facility] IgG, S 2:43 PM HINGING MACHINE OPERATOR [facility] Comment: Recommend follow-up testing in 10-14 day s if clinically indicated. ----REFERENCE VALUE---- Vaccinated: Positive (>=1.0 AI) Unvaccinated: Negative (<=0.7 AI) Rubella IgG Antibody Index 0.8 8 2:43 PM HINGING MACHINE OPERATOR [facility] Specimen Anatomical Collection Method Collection Time Receive d Time (Source) Location / / Volume Laterality Blood (Blood, 11/26/2017 4:20 PM 11/26/19 18 9:54 Venous) HINGING MACHINE OPERATOR PM HINGING MACHINE OPERATOR Seema Moreland APRN, C.N.P. LAB MICROBIOLOGY - BLOOD ORD ERABLES Performing Organization Address City/State/ZIP Code Phon e Number [address] [place] [address] [facility] HIV-1/-2 Ag and Ab Screen (11/26/2017 4:20 PM HINGING MACHINE OPERATOR) P athologist Signature HIV-1/-2 Ag Negative Negative 11/29/2017 [facility] and Ab Screen, 12:36 PM HINGING MACHINE OPERATOR [facility] Comment: Negative result does not rule out HIV in fection. If acute HIV infection is suspected in a hi gh-risk individual, submit plasma specimen for H IV-1 RNA quantification test (HIVDQ) and/or HIV-2 DNA/RNA test (FHV2Q). Specimen Anatomical Collection Method Collection Time Receive d Time (Source) Location / / Volume Laterality Blood (Blood, 11/26/2017 4:20 PM 11/26/19 18 9:53 Venous) HINGING MACHINE OPERATOR PM HINGING MACHINE OPERATOR Seema Moreland APRN, C.N.P. LAB MICROBIOLOGY - BLOOD ORD ERABLES Performing Organization Address City/State/ZIP Code Phon e Number [address] [place] [address] [facility] Hepatitis B Surface Antigen (11/26/2017 4:20 PM HINGING MACHINE OPERATOR) [facility] Method Time Signature HBs Antigen, Nonreactive Nonreactive 11/29/2017 [facility] S 12:36 PM [facility] Specimen Anatomical Collection Method Collection Time Receive d Time (Source) Location / / Volume Laterality Blood (Blood, 11/26/2017 4:20 PM 11/26/19 18 9:53 Venous) HINGING MACHINE OPERATOR PM HINGING MACHINE OPERATOR Malorie Tejada APRNNDenniseP. LAB MICROBIOLOGY - BLOOD ORD ERABLES Performing Organization Address City/State/ZIP Code Phon e Number [address] [address] [facility] (ABNORMAL) CBC without Differential (11/26/2017 4:20 PM HINGING MACHINE OPERATOR) [facility] Method Time Signature Hemoglobin 11.9 11.6 - 11/26/2017 [facility] 15.0 g/dL 4:28 PM [facility] Hematocrit 34.8 (L) 35.5 - 11/26/2017 [facility] 44.9 % 4:28 PM [facility] Erythrocytes 3.82 (L) 3.92 - 11/26/2017 [facility] 5.13 4:28 PM [facility] x10(12)/L [facility] MCV 91.1 78.2 - 11/26/2017 [facility] 97.9 fL 4:28 PM [facility] RBC Distrib Width 12.6 12.2 - 11/26/2017 [facility] 16.1 % 4:28 PM [facility] Platelet Count 236 157 - 371 11/26/2017 [facility] x10(9)/L 4:28 PM [facility] Leukocytes 9.5 3.4 - 9.6 11/26/2017 [facility] x10(9)/L 4:28 PM [facility] Specimen Anatomical Collection Method Collection Time Receive d Time (Source) Location / / Volume Laterality Blood (Blood, 11/26/2017 4:20 PM 11/26/19 18 4:26 Venous) HINGING MACHINE OPERATOR PM HINGING MACHINE OPERATOR Kylie Tejada APRN.N.P. LAB BLOOD ADD-ON Performing Organization Address City/State/ZIP Code Phon e Number [facility] [place] [place] [address] [facility] Antibody Screen, RBC (11/26/2017 4:20 PM HINGING MACHINE OPERATOR) P athologist Signature Antibody Screen NEG 11/27/2017 [facility] 8:41 AM [facility] Specimen Anatomical Collection Method Collection Time Receive d Time (Source) Location / / Volume Laterality Blood (Blood, 11/26/2017 4:20 PM 11/26/19 18 4:26 Venous) HINGING MACHINE OPERATOR PM HINGING MACHINE OPERATOR Kylie Tejada APRN.N.P. LAB BLOOD BANK TEST ORDERABL ES Performing Organization Address City/State/ZIP Code Phon e Number [facility] [place] [address] [place] ABORh, RBC (11/26/2017 4:20 PM HINGING MACHINE OPERATOR) athologist Signature ABO Group A 11/27/2017 8:39 [facility] AM [facility] Rh Type POS 11/27/2017 8:39 [facility] AM [facility] Specimen Anatomical Collection Method Collection Time Receive d Time (Source) Location / / Volume Laterality Blood (Blood, 11/26/2017 4:20 PM 11/26/19 18 4:26 Venous) HINGING MACHINE OPERATOR PM HINGING MACHINE OPERATOR Kylie Tejada APRN.N.P. LAB BLOOD BANK TEST ORDERABL ES Performing Organization Address City/State/ZIP Code Phon e Number [facility] [address] [facility] [place] [address] [place] [facility] Chlamydia / gonorrhoeae Amplified RNA Vagina (11/26/2017 4:18 PM HINGING MACHINE OPERATOR) [facility] gist Method Time Signature Source VAGINA 11/29/2017 [facility] 12:30 PM [facility] Chlamydia Negative Negative 11/29/2017 [facility] trachomatis 12:[address] [facility] RNA [facility] Comment: ----ADDITIONAL INFORMATION---- This report is intended for use in clini yenni monitoring and management of patients. It is not in tended for use in medical-legal applications. Source VAGINA 11/29/2017 12:30 PM [facility] Neisseria gonorrhoeae Negative Negative 11/29/2017 12:30 P M [facility] RNA [facility] Comment: ----ADDITIONAL INFORMATION---- This report is intended for use in clini yenni monitoring and management of patients. It is not in tended for use in medical-legal applications. Specimen Anatomical Collection Method Collection Time Receive d Time (Source) Location / / Volume Laterality Varies (Vagina) 11/26/2017 4:18 PM 2017 9:56 HINGING MACHINE OPERATOR PM HINGING MACHINE OPERATOR Seema Moreland APRN C.N.PDennise LAB MICROBIOLOGY - GENERAL O RDERASERA Performing Organization Address City/State/ZIP Code Phon e Number [facility] [address] [place] [address], [facility] [address] [facility] Pathology NUCLEAR PLANT TECHNICAL ADVISOR Cytology (11/26/2017 12:00 AM HINGING MACHINE OPERATOR) Component Value Ref Test Analysis Performed At [facility] Method Time Signature PATHOLOGY NUCLEAR PLANT TECHNICAL ADVISOR Patient Name: ERIK BANKS [facility] CYTOLOGY MR#: [id number] [facility] Submitting Physician: SEEMA MORELAND RESIDENTIAL RECYCLE DRIVER ??[id number] Specimen #[id number] Performing Lab: ??[facility] ? [address] [place] [id number] CLINICAL HISTORY: Last menstrual period: Status: Pap Type: Routine Pap Clinical History/Status (Select all that apply): Ancillary Testing: Perform reflex HPV Testing Source: ThinPrep cervical/endocervical specimen [ThinPrep vial] Diagnosis Specimen Adequacy: Satisfactory for interpretat ion : endocervical or transformation zone component present. General Categorization: Negative for intraepithelial lesion or malignancy. ?? The PAP smear is not a diagnostic proced ure and should not be used as the sole means to detect cervical can cer. ??It is only a screening procedure to aid in the detection of cervical cancer and its precursors. ??Both fals e-negative and false-positive results have been experienced. Specimen (Source) Anatomical Location Collection Method / Collectio n Time Received Time / Laterality Volume Thin Prep Vial 11/26/2017 11/26/2017 (Cervix/Endocervi x) Seema Moreland APRN, C.N.P. LAB PAP COPATH ORDERABLES Performing Organization Address City/State/ZIP Code Phon e Number [facility] [address] [place] [address] documented in this encounter Visit Diagnoses Diagnosis Encounter For Supervision Of Normal Firs t Unspecified Trimester (HCC) Encounter For Supervision Of Normal Firs t Unspecified Trimester (HCC) documented in this encounter
--- OUTSIDE RECORDS SUMMARY | 2022-08-07 10:38 | XMS_ITS | Encounter Summary ---
:1995 Author Organization [facility] Address [address] [place] [address] Care Team Providers Name Role Phone Unassigned, Pcp Primary Care Provider Unavailable Reason for Referral Outpatient (Routine) - Closed Specialty Diagnoses / Procedures Referred By Contact Refer red To Contact Obstetrics and Jennifer Sargent APRN, [facility] Gynecology C.N.P. [address] [place] [address] Referral ID Status Reason Start Date Expiration Date Visits Requ ested Visits Authorized [id number] Closed 03/18/2018 03/18/2019 1 1 Reason for Visit Reason Comments Routine Visit Outpatient (Routine) - Closed Specialty Diagnoses / Procedures Referred By Contact Refer collin To Contact Obstetrics Jennifer Davis APRN, [facility] Gynecology C.N.P. [address] [place] [address] Referral ID Status Reason Start Date Expiration Date Visits Requ ested Visits Authorized [id number] Closed 02/16/2018 08/15/2018 1 1 Encounter Details Date Type Department Care Team Description 03/18/2018 Routine Department of Jennifer Sargent Encounte r For Obstetrics and MARIA LUISA, C.N.P. Supervision Of Normal Gynecology in [facility] [address] [place], [place] Unspecified Trimester [address] [facility] [address] (Primary Dx) [place], [place] [phone] [address] (Work) [phone] Social History Tobacco Use Types Packs/Day Years Used Date Smoking Tobacco: Never Smokeless Tobacco: Never Alcohol Use Standard Drinks/Week Comments No 0 (1 standard drink = 0.6 oz pure alcoho l) Sex Assigned at Date Recorded Female 07/07/2018 9:07 AM CDT documented as of this encounter Last Filed Vital Signs Vital Sign Reading Time Taken Comments Blood Pressure 112/60 03/18/2018 1:11 PM CDT Pulse - - Temperature - - Respiratory Rate - - Oxygen Saturation - - Inhaled Oxygen Concentration - - Weight 107 kg (235 lb 3.7 oz) 03/18/2018 1:11 PM CDT Height - - Body Mass Index 40.16 11/13/2016 11:23 AM 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 - 03/18/2018 1:30 PM CDT Patient is feeling well. States she has had some low/pelvic muscle aching, this resolves with rest. It is mainly occurring when she is going from seated position to standing. She also notes that she had 1 occasion of low menstrual cramps that resolved with sleep. Abundant movement. No leaking offluid. She is concerned about working environment. 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 There is poor ventilation. She had sometimes does need to be standing and walking back and forth and concrete for 6 hrs without a break. This symptoms required to climb ladders. She is requesting a note today. I discussed with her that I can give her a note for some recomme ndations for work modifications. Tdap/CBC/syphilis/GCT next visit. will also received Tdap next visit. documented in this encounter Plan of Treatment Scheduled Referrals Name Type Priority Associated Order Schedule Diagnoses Obstetrics and Outpatient Referral Routine Expect ed: Gynecology office 04/17/2018 visit (clinic) (Approximate) , Expires: 03/18/2019 documented as of this encounter Results Syphilis IgG Antibody with Reflex (04/15/2018 3:36 PM CDT) athologist Signature Syphilis IgG Negative Negative 04/18/[address] [facility] Ab, S 3:49 PM CDT [facility] Comment: No serologic evidence of exposu re to syphilis. Specimen Anatomical Collection Method Collection Time Receive d Time (Source) Location / / Volume Laterality Blood (Blood, 04/15/2018 3:36 PM 04/15/20 18 9:51 Venous) CDT PM CDT Jennifer Sargent APRN, Kylie.N.P. LAB BLOOD ADD-ON Performing Organization Address City/State/ZIP Code Phon e Number [facility] [address] [facility] [address] [facility] Glucose Tolerance Test, 1 hour (04/15/2018 3:36 PM CDT) athologist [facility] Glucose Anny, 1 120 <130 mg/dL 04/15/[address] [facility] hr, S 4:24 PM CDT [facility] Specimen Anatomical Collection Method Collection Time Receive d Time (Source) Location / / Volume Laterality Blood (Blood, 04/15/2018 3:36 PM 04/15/20 18 3:37 Venous) CDT PM CDT Jennifer Sargent APRN, C.N.P. LAB BLOOD NON ADD-ON Performing Organization Address City/State/ZIP Code Phon e Number [facility] [address] [place] [address] [facility] (ABNORMAL) CBC without Differential (04/15/2018 3:36 PM CDT) [facility] Method Time Signature Hemoglobin 11.1 (L) 11.6 - 04/15/[address] [facility] 15.0 g/dL 3:42 PM CDT [facility] Hematocrit 33.1 (L) 35.5 - 04/15/[address] [facility] 44.9 % 3:42 PM CDT [facility] Erythrocytes 3.56 (L) 3.92 - 04/15/[address] [facility] 5.13 3:42 PM CDT [facility] x10(12)/[facility] MCV 93.0 78.2 - 04/15/[address] [facility] 97.9 fL 3:42 PM CDT [facility] RBC Distrib Width 13.0 12.2 - 04/15/[address] [facility] 16.1 % 3:42 PM CDT [facility] Platelet Count 233 157 - 371 04/15/[address] [facility] x10(9)/L 3:42 PM CDT [facility] Leukocytes 11.0 (H) 3.4 - 9.6 04/15/[address] [facility] x10(9)/L 3:42 PM CDT [facility] Specimen Anatomical Collection Method Collection Time Receive d Time (Source) Location / / Volume Laterality Blood (Blood, 04/15/2018 3:36 PM 04/15/20 18 3:37 Venous) CDT PM CDT Jennifer Sargent APRN C.N.P. LAB BLOOD ADD-ON Performing Organization Address City/State/ZIP Code Phon e Number [facility] [address] [facility] [place] [address] [facility] documented in this encounter Visit Diagnoses Diagnosis Encounter For Supervision Of Normal Firs t Unspecified Trimester (HCC) - Primary documented in this encounter Care Teams Florist'S Decorator Relationship Specialty Start Date End Date Unassigned, Pcp PCP - General Family Medicine 02/24/18 documented as of this encounter
--- OUTSIDE RECORDS SUMMARY | 2022-08-07 10:38 | XMS_ITS | Encounter Summary ---
:1995 Author Organization [facility] Address [address] [place] [address] Care Team Providers Name Role Phone Unavailable Primary Care Provider Unavailable Reason for Referral Outpatient (Routine) - Closed Specialty Diagnoses / Procedures Referred By Contact Refer red To Contact Obstetrics and Diagnoses Encounter For Supervision Of Normal First Unspecified Trimester (HCC) Jennifer Sargent APRN, [facility] Gynecology C.N.P. [address] [facility] [place] [address] Referral ID Status Reason Start Date Expiration Date Visits Requ ested Visits Authorized [id number] Closed 11/05/2017 05/04/2018 1 1 Scheduling Instructions New OB with MANAGER CATEGORY or CNM ATOR OPERATOR FREIGHT Reason for Visit Reason Comments Communication positive test Encounter Details Date Type Department Care Team Description 11/05/2017 Clinical Department of Hina Mosher Communication Communication Obstetrics and ACCOUNTS RECEIVABLE REPRESENTATIVE, C.N.P. (positive Gynecology in [facility] [address] test) [facility] [address] [place] [id number] Social History Tobacco Use Types Packs/Day Years Used Date Smoking Tobacco: Never Sex Assigned at Date Recorded Female 07/07/2018 9:07 AM CDT documented as of this encounter Miscellaneous Notes Telephone Encounter - Keely Chun R.N. - 11/05/2017 9:22 AM CST Triage/Phone Nurse: 'How many periods have you missed?' one Have you done a home test?yes, two Date of test 11/04/2017 and Which is this for you? first Have you had any of the following? - Previous tubal ? no - Diabetes or diabetes in that required you to take medication? no - High blood pressure or high blood pressure in that required you to take medication? no - Any kidney or liver disease? no - Any heart problems? no - Received treatment for cancer? no - Previous blood clots? no - Are you taking any medication for depression or anxiety? no 1. LMP 09/30/2017 OK 07/08/2018 2. Number of pregnancies: first Number of live births NA vaginal or cessarian? NA 3. The initial OB visit is routinely scheduled between 8-10 weeks of (11/26/2017 - 12/11/2017). This first visit will be with our Nurse Practitioner. 4. The first visit will be an hour appointment that will include obtaining a complete health historyand a physical exam. The physical exam may include a pap smear (if needed or if due) and lab work. 5. We will also provide you with initial information and information regarding what to expect during your care. 6. You are encouraged to start taking a multivitamin if you are not already taking. vitamins may be obtained over the counter. 7. We would encourage you to abstain from alcohol now that is known. 8. If you smoke, we would also encourage you to stop smoking as well. If you need assistance to quitsmoking, we would be happy to assist you with this. Brie states understanding to all of the above and agrees to the plan of care. All questions answered at the time of the call. Orders entered for appointment and Us. Brie notified me that she sporadically experiences very mild cramping described more as a rumbling that happens with position changes. She denies any vaginal discharge or bleeding, or any other related symptoms. RN recommendation is for patient to continue to monitor and call back if she dev elops severe pain or if she develops any vaginal bleeding or discharge. She states understanding andagrees to the plan; denies any questions. RN transferred Brie to scheduling. ATOR OPERATOR FREIGHT Telephone Encounter - Mary Ellen Stock C.S.T. - 11/05/2017 8:05 AM ELEVATOR OPERATOR FREIGHT Patient called and has a positive home test. Please call her at [phone]. Thank you ATOR OPERATOR FREIGHT documented in this encounter Plan of Treatment Scheduled Referrals Name Type Priority Associated Order Schedule Diagnoses Obstetrics and Outpatient Referral Routine Normal First Expect ed: Gynecology - 11/26/2017 Obstetrics consult (Approxim ate), (clinic) Expires: 11/05/2020 documented as of this encounter Results US OB First Trimester and Transvaginal (11/26/2017 2:36 PM ELEVATOR OPERATOR FREIGHT) Anatomical Region Laterality Modality Body N/A Ultrasound Specimen (Source) Anatomical Collection Method Collection Time Re ceived Time Location / / Volume Laterality 11/26/2017 2:45 PM ELEVATOR OPERATOR FREIGHT Impressions 11/26/2017 2:48 PM ELEVATOR OPERATOR FREIGHT IMPRESSION: Single living intrauterine gestation. Estimated gestational age 8 weeks 0 days. Narrative 11/26/2017 2:48 PM ELEVATOR OPERATOR FREIGHT EXAM: US OB FIRST TRIMESTER AND TRANSVAGINAL COMPARISON: None FINDINGS: Gestational age and OK by LMP or OB/EHR assignment: ??8 weeks 1 day, OK 07/07/2018 Age and OK by current ultrasound measur ements: ??8 weeks 0 days, OK 07/08/2018. Intra-uterine: Single living intrauterin e embryo. Yolk sac present. Dupo-rump length 16 mm. heart rate: 175 bpm. [...] living intrauterin e embryo. Yolk sac present. Dupo-rump length 16 mm. heart rate: 175 bpm. Maternal ovaries/adnexae: Unremarkable IMPRESSION: Single living intrauterine g estation. Estimated gestational age 8 weeks 0 days. Jennifer Sargent APRN, C.N.P. IMG OB US PROCEDURES documented in this encounter Visit Diagnoses Diagnosis Encounter For Supervision Of Normal Firs t Unspecified Trimester (HCC) - Primary Encounter For Supervision Of Normal Firs t Unspecified Trimester (HCC) documented in this encounter
--- OUTSIDE RECORDS SUMMARY | 2022-08-07 10:38 | XMS_ITS | Encounter Summary ---
:1995 Author Organization [facility] Address [address] [place] [address] Care Team Providers Name Role Phone Unavailable Primary Care Provider Unavailable Encounter Details Date Type Department Care Team Description 11/13/2016 Hospital Encounter [facility] Johny Shoemaker M.D. [address] [place], [place] [address] (Wo rk) Social History [...] - - Height 163 cm (5' 4.17) 11/13/2016 11:23 AM DRAWING PRESS OPERATOR Body Mass Index - - documented in this encounter Medications at Time of Discharge Medication Sig Dispensed Refills Start Date End Date albuterol sulfate 90 Inhale 2 puffs every 0 01/2511/26/2017 mcg/actuation aerosol 4 (four) hours. powdr breath activated documented as of this encounter Progress Notes Anjel Shoemaker M.D. - 11/13/2016 10:35 AM CST [id number] Erik is a pleasant 20-year-old female who presents today for followup regarding her left wrist.Day after [place] she sustained a nondisplaced left distal radius fracture. She was seen in clinicon the 29th three days after date of injury. X-rays confirmed no displacement. I placed her in a short-arm cast. Since our last visit she has remained strict nonweightbearing in the left upper extremity. She has kept the cast clean and dry. She did have quite a bit of swelling in the digits that lasted for about a week or 2. Eventually the swelling started to resolve. She presents today for further followup now 6 weeks out from date of injury. Overall she has been doing well. Has not had any problems with pain. The swelling had resolved after a couple weeks as noted above. PHYSICAL EXAMINATION The patient's short-arm cast on the left upper extremity was removed prior to my arrival in the room. She has superficial sloughing of the skin as would be expected in left upper extremity. She reportsnormal sensation to light touch over the median, ulnar, and superficial nerve distributions on the left hand. She has no tenderness with palpation about the distal radius. She is a little stiff in the wrist as would be expected. She has a palpable 2+ radial pulse. Brisk intact capillary refill throughout all digits of the left hand. DIAGNOSTICS Plain radiographs of the left wrist with the cast off were obtained today. Increased radiodensity and sclerosis around the prior fracture site is identified. No interval displacement of the fracture isnoted. Alignment remains anatomic. IMPRESSION/REPORT/PLAN Healed nondisplaced left distal radius fracture. PLAN: I reviewed with Erik that I am pleased with her progress. We will place her in a Velcro wrist brace that she is to wear for the next week consistently, but after that she may start to wean out of it more. We will have her start working on range of motion exercises and she may transition to w eightbearing as tolerated. I did discuss with her getting set up to work with Occupational Therapy, but it turns out she is close friends with one of our therapists here at the hospital and she will plan to just get some advice on exercises at home when she sees her. Going forward she can return to see me on as-needed basis. All questions answered. Anjel Shoemaker M.D./serena Electronically Signed By: ANJEL SHOEMAKER MD On: 11/19/2016 03:46 PM Source: [facility] MHSDOLBEYNONRADSYS Document Id: [id number] ING PRESS OPERATOR documented in this encounter Procedure Notes Stacy Mai L.PDenniseN. - 11/13/2016 11:24 AM CST Cast Removal Cast Removal Entered On: 11/13/2016 11:25 DRAWING PRESS OPERATOR Performed On: 11/13/2016 11:24 DRAWING PRESS OPERATOR by STACY MAI LPN Cast Removal Interventions Post Cast Removal : Wash with soap/water Skin Integrity : Intact STACY MAI LPN - 11/13/2016 11:24 DRAWING PRESS OPERATOR Integumentary Pain Symptoms : No STACY MAI LPN - 11/13/2016 11:24 DRAWING PRESS OPERATOR Source: [facility] [employer] Document Id: [id number] DRAWING PRESS OPERATOR!6 ING PRESS OPERATOR documented in this encounter Miscellaneous Notes Miscellaneous - Anjel Shoemaker M.D. - 11/13/2016 11:51 AM CST Ambulatory Patient Summary [address], [address] [place], [place] [id number] Visit Information Name: ERIK MICHAEL [facility] Number: [id number] Current Date: 11/13/2016 11:51:10 Physicians Attending Provider: AJNEL SHOEMAKER MD Primary Care Provider: PCP, ELSEWHERE ERIK MICHAEL has been given the following list of [...] aerosol) 2 puff(s), Inhalation, every 4 hours norgestimate-ethinyl estradiol (Sprintec 0.25 mg-35 mcg oral tablet) 1, Oral, once a day Stop Taking the Following Medications: Medication list as of 11-13-16 11:51 Attention: If you have any medications at [...] Electronically Signed By: ANJEL SHOEMAKER MD Signed On:13-NOV-2016 11:51:08 Your Allergies & Intolerances Substance Reaction Symptoms [...] if you dont have one. Go to [email or web address] and click on Create Your Account. Then, follow the directions to complete the online form. Youll be asked for your [facility] number which you can find at the top of this document. Your Goals/Additional instructions: Source: [facility] POWERCHART Document Id: [id number] ING PRESS OPERATOR Miscellaneous - Anjel Shoemaker M.D. - 11/13/2016 11:51 AM CST Ambulatory Discharge Medication List [facility] [address], [address] [place], [place] [id number] Visit Information Name: ERIK MICHAEL [facility] Number: [id number] Current Date: 11/13/2016 11:51:10 Attending Provider: ANJEL SHOEMAKER MD Primary Care Provider: PCP, ELSEWHERE ERIK MICHAEL has been given the following list of [...] aerosol) 2 puff(s), Inhalation, every 4 hours norgestimate-ethinyl estradiol (Sprintec 0.25 mg-35 mcg oral tablet) 1, Oral, once a day Stop Taking the Following Medications: Medication list as of 11-13-16 11:51 Attention: If you have any medications at [...] Electronically Signed By: ANJEL SHOEMAKER MD Signed On:13-NOV-2016 11:51:08 Additional Information: Source: [facility] POWERCHART Document Id: [id number] ING PRESS OPERATOR Miscellaneous - Stacy Mai, L.P.N. - 11/13/2016 11:23 AM CST Adult Pc Network Technician Intake/History Adult Pc Network Technician Intake/History Entered On: 11/13/2016 11:24 DRAWING PRESS OPERATOR Performed On: 11/13/2016 11:23 DRAWING PRESS OPERATOR by STACY MAI LPN Intake Chief Complaint : cast removal Height : 163 cm(Converted to: 5 ft 4 inch(es), 64 inch(es)) STACY MAI LPN - 11/13/2016 11:23 DRAWING PRESS OPERATOR General Info Information Given By : Patient Languages : Israeli Is Patient Female and 13-50 no hysterectomy : Yes Status : Patient denies Are you ? : No STACY MAI LPN - 11/13/2016 11:23 DRAWING PRESS OPERATOR Subjective Pain Symptoms : No STACY MAI LPN - 11/13/2016 11:23 DRAWING PRESS OPERATOR Dependent Habits Exposure to Tobacco Smoke : Care provider denies smoking in home Smoking Status : Never smoker Tobacco 2A : No Tobacco Use/Currently Using : No Tobacco Use/Last 30 Days : No Tobacco Use/Last 12 months : No STACY MAI LPN - 11/13/2016 11:23 DRAWING PRESS OPERATOR Caffeine Use Grid Caffeine Use : None STACY MAI LPN - 11/13/2016 11:23 DRAWING PRESS OPERATOR Recreational Drug Use Grid Drug Use : None STACY MAI LPN - 11/13/2016 11:23 DRAWING PRESS OPERATOR Source: [facility] [employer] Document Id: [id number] DRAWING PRESS OPERATOR!25 ING PRESS OPERATOR documented in this encounter Plan of Treatment Not on filedocumented as of this encounter Visit Diagnoses Not on filedocumented in this encounter
--- OUTSIDE RECORDS SUMMARY | 2022-08-07 10:38 | XMS_ITS | Encounter Summary ---
:1995 Author Organization [facility] Address [address] [place] [address] Care Team Providers Name Role Phone Unavailable Primary Care Provider Unavailable Encounter Details Date Type Department Care Team Description 05/27/2011 Hospital Encounter HX [facility] Jennifer Farah M.D. [address] [place] [address] ALLY Cronin [phone] (Wo rk) Social History Tobacco Use Types [...] documented as of this encounter Progress Notes Jennifer Lopez M.D. - 05/27/2011 12:00 AM CDT [id number] IMPRESSION/REPORT/PLAN IMPRESSION & PLAN 1) Contraceptive counseling. We discussed the various methods of control including oral contraceptive pills, the vaginal ring, the Patch Implanon, Depo shot and intrauterine device. We discussed the risks, benefits and potential side effects of each including blood clots with Estrogen containing hormones as well as the potential for change in her cycle, irregular bleeding, potential weight gain and changes in her skin. After discussing these methods the patient would like to try the pill. We discussed use including taking the pill at the same time every day and what to do if a pill is missed or if she takes it later than normal. If she finds that she is having a difficult time remembering the pill she states she will consider other options. We obtained a test today, which was negative. Initially I had prescribed Ortho TriCyclen and sent this to the pharmacy. The patient then did have questions about how much it would cost. She is concerned that thirty-dollars may be a little much. For this reason I then prescribed Sprintec and printed it out so she could potentially take it to [facility] for their nine dollar option. 2) High-risk sexual behavior. I stressed the importance of always using a condom even when she is on control to prevent the spread of sexually transmitted infections. We discussed common infections including Chlamydia, Gonorrhea, Herpes, Trichomonas, and HIV. Patient wishes to be tested for these today. A urine Chlamydia and Gonorrhea was obtained as well as a HIV screening antibody test. We also discussed Pap smears and HPV. We also discussed obtaining the Gardisil vaccine. Patient was interested in it, but wanted to discuss with her parents. She was able to return and get the first shot in the three shot series. PATIENT EDUCATION #1 Patient Education Ready to learn. No apparent learning barriers were identified. Learning preferences include listening. Explained diagnosis and treatment plan. Patient/Child/Caregiver expressed understanding of the content. CHIEF COMPLAINT/REASON FOR VISIT Start control. HISTORY OF PRESENT ILLNESS The patient is a jbodoklem-ypgx-gsx female who states she is here today because her parents think that she should be on control and in further questioning the patient states she is in a committed relationship and really should be on control. She has concerns both about and about sexually transmitted infections. She has had five partners in her life. She reports always using condoms. She does not know if any of her partners have specifically had a sexually transmitted infection but she has concerns because one of her partners has had many other partners. She denies having any concerns about vaginal discharge, vaginal irritation, any vaginal lesions or dysuria. Not having any abdominal pain. In regards to her period, she reports she got it the summer before sixth grade. It has always been pretty irregular sometimes coming twice a month, sometimes not coming for four months in a row. It is typically pretty light and will only last two to three days. In regards to control, she thinks that she is interested in taking the pill. She does not know a lot about other options. CURRENT MEDICATIONS Include: 1) Albuterol, 2-puffs, every 4-hours, PRN. ALLERGIES No known drug allergies. SYSTEM REVIEW Review of Systems, as above. VITAL SIGNS Temperature: 36.8-degrees Centigrade. Pulse: 62 beats per minute. Respiratory rate: 16 breaths per minute. Blood pressure: 106/60. Weight: 69 kilograms. PHYSICAL EXAM IN GENERAL: The patient is alert and oriented. She is in no acute distress. EXAM: No further exam was completed at this time. Jennifer Valentino M.D. /mackenzie Electronically Signed By: JENNIFER VALENTINO MD On: 06/03/2011 08:36 AM Modified by and Electronically Signed by: JENNIFER VALENTINO MD On: 06/03/2011 08:36 AM Source: [facility] MHSDOLBEYNONRADSYS Document Id: [id number] documented in this encounter Miscellaneous Notes Miscellaneous - Jennifer Lopez M.D. - 05/27/2011 10:10 AM CDT Ambulatory Patient Summary [address] [address] Visit Information Name: ERIK MICHAEL Current Date: 05/27/2011 10:10:21 Primary Care Provider: PCP, UNASSIGNED Your Medications Here is a list of your medications. It is important to take your medications as directed. Use a pillbox or chart to help remind you to take your medications. Please let your doctor or nurse know if you have problems taking your medications. Medication/Strength Dose Route Frequency Indications/Special Instructions/Comments norgestimate-ethinyl estradiol (Sprintec) 1 Oral once a day norgestimate-ethinyl estradiol (Ortho Tri-Cyclen Lo) 1 Oral once a day hydrocodone-acetaminophen (hydrocodone-acetaminophen 5 mg-500 mg oral capsule) 6 cap(s) Oral every 4hours as needed for Pain albuterol (albuterol CFC free 90 mcg/inh inhalation aerosol) 2 puff(s) Inhalation every 4 hours albuterol (albuterol CFC free 90 mcg/inh inhalation aerosol) 2 puff(s) Inhalation every 4 hours Your Allergies & Intolerances Substance Reaction Symptoms Category Comments NKA Drug Your Problem List Problem Status Onset Comments No Problems found Your Recommendations We want to make sure you get the tests, immunizations, and guidance you need to stay healthy. Here is a customized list of recommendations, based on information we have in your medical record. Your doctor may have additional recommendations for you, based on your personal medical history and risk factors. You can help us by calling us to make an appointment when you are due for your tests. Additional information regarding recommendations: Test/Treatment Last Done Next Due Additional Information No Health Maintenance records were found Your Upcoming Appointments Date Time Location Reason Provider No Appointments found Your Goals/Additional instructions: Source: [facility] POWERCHART Document Id: [id number] Electronically signed by Fidelina, [facility] Glory Hole Tender [id number] at 03/07/2017 11:39 PM CDT Miscellaneous - Jennifer Lopez M.D. - 05/27/2011 10:10 AM CDT Ambulatory Depart Summary [address] [address] Visit Information Name: ERIK MICHAEL Current Date: 05/27/2011 10:10:20 Primary Care Provider: PCP, UNASSIGNED ERIK MICAHEL has been given the following list of medications: Your Medications It is important to take your medications as directed. Use a pill box or chart to help remind you to take your medications. Please let your doctor or nurse know if you have problems taking your medications. Medication/Strength Dose Route Frequency Indications/Special Instructions/Comments norgestimate-ethinyl estradiol (Sprintec) 1 Oral once a day norgestimate-ethinyl estradiol (Ortho Tri-Cyclen Lo) 1 Oral once a day hydrocodone-acetaminophen (hydrocodone-acetaminophen 5 mg-500 mg oral capsule) 6 cap(s) Oral every 4hours as needed for Pain albuterol (albuterol CFC free 90 mcg/inh inhalation aerosol) 2 puff(s) Inhalation every 4 hours albuterol (albuterol CFC free 90 mcg/inh inhalation aerosol) 2 puff(s) Inhalation every 4 hours Additional Information: Yes - Current list of reconciled medications is provided and explained to the patient and/or family, guardian/caregiver. Source: [facility] POWERCHART Document Id: [id number] Electronically signed by Fidelina [facility] Glory Hole Tender [id number] at 03/07/2017 11:39 PM CDT Miscellaneous - Мария Thomas L.P.N. 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 Intake/History Adult Composite Engineer Intake/History Entered On: 05/27/2011 9:21 CDT Performed On: 05/27/2011 9:18 CDT by МАРИЯ THOMAS LPN Intake Chief Complaint: would like to initiate control LMP 05/05/2011 Temperature Core: 36.8C(Converted to: 98.2DegF) Peripheral Pulse Rate: 62/min Respiratory Rate: 16/min Systolic Blood Pressure: 106mmHg Diastolic Blood Pressure: 60mmHg NIBP Mean: 75mmHg BP Location: Right upper extremity Heart Rhythm: Regular Actual Weight: 69.000kg(Converted to: 152lb 2oz) Weight Source: Standing scale Dosing Weight Clinic: 69.00kg МАРИЯ THOMAS LPN - 05/27/2011 9:18 CDT Subjective Pain Symptoms: No МАРИЯ THOMAS LPN - 05/27/2011 9:18 CDT Dependent Habits Tobacco Use/Currently Using: No Alcohol Use: No МАРИЯ THOMAS LPN - 05/27/2011 9:18 CDT Caffeine Use Grid Caffeine Use: None МАРИЯ THOMAS LPN - 05/27/2011 9:18 CDT Allergy Allergies (Active) NKA Estimated Onset Date: Unspecified ; Created By: NELA RAO RN; Reaction Status: Active ; Category: Drug ; Substance: NKA ; Type: Allergy ; Updated By: NELA ROA RN; Reviewed Date: 01/25/2011 19:52 CDT Source: [facility] POWERCHART Document Id: [id number] CDT!22 documented in this encounter Plan of Treatment Not on filedocumented as of this encounter Visit Diagnoses Not on filedocumented in this encounter
--- OUTSIDE RECORDS SUMMARY | 2022-08-07 10:38 | XMS_ITS | Encounter Summary ---
:[address] [facility] Address [address] [place] [address] Care Team Providers Name Role Phone Unavailable Primary Care Provider Unavailable Reason for Referral Outpatient (Routine) - Closed Specialty Diagnoses / Procedures Referred By Contact Refer red To Contact Obstetrics and Jennifer Sargent APRN, [facility] C.N.P. [address] [place] [address] Referral ID Status Reason Start Date Expiration Date Visits Requ ested Visits Authorized [id number] Closed 2017 06/22/2018 1 1 Scheduling Instructions 16 wks Reason for Visit Reason Comments Routine Visit Outpatient (Routine) - Closed Specialty Diagnoses / Procedures Referred By Contact Refer red To Contact Obstetrics and Jennifer Sargent APRN, [facility] C.N[facility] [address] [place] [address] Referral ID Status Reason Start Date Expiration Date Visits Requ ested Visits Authorized [id number] Closed 11/26/2017 05/25/2018 1 1 Encounter Details Date Type Department Care Team Description 2017 Routine Department of Jennifer Sargent Normal F irst Obstetrics and MARIA LUISA, C.N.P. (Primary Gynecology in Red [address] [place], [place] [address] [address] [place], [place] [phone] (Work) [phone] Social History Tobacco Use Types Packs/Day Years Used Date Smoking Tobacco: Never Smokeless Tobacco: Never Alcohol Use Standard Drinks/Week Comments No 0 (1 standard drink = 0.6 oz pure alcoho l) Sex Assigned at Date Recorded Female 07/07/2018 9:07 AM CDT documented as of this encounter Last Filed Vital Signs Vital Sign Reading Time Taken Comments Blood Pressure 114/62 2017 8:16 AM CDT Pulse - - Temperature - - Respiratory Rate - - Oxygen Saturation - - Inhaled Oxygen Concentration - - Weight 102 kg (224 lb 13.9 oz) 2017 8:16 AM CDT Height - - Body Mass Index 38.39 11/13/2016 11:23 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 - 2017 8:30 AM CDT Experiencing nausea in the morning. Will try a eating a snack or some crackers as soon as she wakes up, or if she gets up in the night to see if this helps. We discussed Unisom and vitamin B6. No concerns today. documented in this encounter Plan of Treatment Scheduled Referrals Name Type Priority Associated Order Schedule Diagnoses Obstetrics and Outpatient Referral Routine Expect ed: Gynecology office 01/24/2018 visit (clinic) (Approximate) , Expires: 2020 documented as of this encounter Visit Diagnoses Diagnosis Encounter For Supervision Of Normal Firs t Unspecified Trimester (HCC) - Primary documented in this encounter
--- OUTSIDE RECORDS SUMMARY | 2022-08-07 10:38 | XMS_ITS | Encounter Summary ---
:1995 Author Organization [facility] Address [address] [place] [address] Care Team Providers Name Role Phone Unavailable Primary Care Provider Unavailable Encounter Details Date Type Department Care Team Description 01/15/2012 Hospital Encounter HX [facility] Tyree Quick M.D. Social History Tobacco Use Types Packs/Day Years Used Date Smoking Tobacco: Never Assessed Sex Assigned at Date Recorded Female 07/07/2018 9:07 AM CDT documented as of this encounter Last Filed Vital Signs Vital Sign Reading Time Taken Comments Blood Pressure 94/60 01/15/2012 3:02 PM CDT Pulse 86 01/15/2012 3:02 PM CDT Temperature - - Respiratory Rate 16 01/15/2012 3:02 PM CDT Oxygen Saturation - - Inhaled Oxygen Concentration - - Weight 64.7 kg (142 lb 10.2 oz) 01/15/2012 3:02 PM CDT Height 164.2 cm (5' 4.65) 01/15/2012 3:02 PM CDT Body Mass Index 24 01/15/2012 3:02 PM CDT Body Mass Index Percentile 76.21 % 01/15/2012 3:02 PM CD T Growth Chart: [facility] (Girls, 2-20 Years) documented in this encounter Medications at Time of Discharge Medication Sig Dispensed Refills Start Date End Date albuterol sulfate 90 Inhale 2 puffs every 0 01/2511/26/2017 mcg/actuation aerosol 4 (four) hours. powdr breath activated documented as of this encounter Progress Notes Tyree Quick M.D. - 01/15/2012 12:00 AM CDT [id number] CHIEF COMPLAINT/REASON FOR EXAM Brie comes in because she thinks might have a bladder infection. She is having some left flank pain, foul urine and some blood in it, burning when she urinates and urinary frequency. She has had these symptoms for a couple days. She didn't go to school today. ON EXAM There is tenderness in the left CVA area. Urinalysis is positive for leukocyte Esterase and blood. She is afebrile. ASSESSMENT 1) UTI. PLAN 1) Septra DS, one tablet, twice a day for 14 days. 2) We will see her back PRN. Tyree Quick M.D. /mackenzie Electronically Signed By: TYREE QUICK MD On: 01/19/2012 12:04 PM Source: [facility] MHSDOLBEYNONRADSYS Document Id: [id number] documented in this encounter Miscellaneous Notes Miscellaneous - Tyree Quick M.D. - 01/15/2012 5:46 PM CDT Ambulatory Depart Summary [address] [address] Visit Information Name: FERNANDA BRIE CORTEZDE Visit Date: 01/15/2012 17:46:56 Attending Provider: TYREE QUICK MD Primary Care Provider: TYREE QUICK MD FERNANDABRIE ROSANNE has been given the following list of medications: Your Medications It is important to take your medications as directed. Use a pill box or chart to help remind you to take your medications. Please let your doctor or nurse know if you have problems taking your medications. Medication/Strength Dose Route Frequency Indications/Special Instructions/Comments sulfamethoxazole-trimethoprim (Septra DS 800 mg-160 mg oral tablet) 1 tab(s) Oral two times a day for 7 Days norgestimate-ethinyl estradiol (Sprintec) 1 Oral once a day albuterol (albuterol CFC free 90 mcg/inh inhalation aerosol) 2 puff(s) Inhalation every 4 hours Attention: If you have any medications at home that are not on this list, DO NOT take them until youcontact your provider for clarification. Additional Information: Source: [facility] POWERCHART Document Id: [id number] Kathy - Tyree Quick M.D. - 01/15/2012 5:46 PM CDT Ambulatory Patient Summary [id number] [place] [address] Visit Information Name: BRIE MICHAEL Current Date: 01/15/2012 17:46:56 Physicians Attending Provider: TYREE QUICK MD Primary Care Provider: TYREE QUICK MD Your Medications Here is a list of your medications. It is important to take your medications as directed. Use a pillbox or chart to help remind you to take your medications. Please let your doctor or nurse know if you have problems taking your medications. Medication/Strength Dose Route Frequency Indications/Special Instructions/Comments sulfamethoxazole-trimethoprim (Septra DS 800 mg-160 mg oral tablet) 1 tab(s) Oral two times a day for 7 Days norgestimate-ethinyl estradiol (Sprintec) 1 Oral once a day albuterol (albuterol CFC free 90 mcg/inh inhalation aerosol) 2 puff(s) Inhalation every 4 hours Attention: If you have any medications at home that are not on this list, DO NOT take them until youcontact your provider for clarification. Your Allergies & Intolerances Substance Reaction Symptoms Category Comments No Known Allergies Drug Your Problem List Problem Status Onset Comments None Active 01/15/2012 Your Upcoming Appointments Date Time Location Reason Provider No Appointments found Your Goals/Additional instructions: Source: [facility] POWERCHART Document Id: [id number] Kathy - Sabrina Purvis L.P.N. - 01/15/2012 3:11 PM CDT Health Assessment Health Assessment Entered On: 01/15/2012 15:12 CDT Performed On: 01/15/2012 15:11 CDT by SABRINA PURVIS LPN Health Assessment Complete Health Assessment Complete or Modified : Annual Health Assessment Annual Health Assessment Completed : Yes SABRINA PURVIS LPN - 01/15/2012 15:11 CDT Nutrition Nutrition Risk Factors by History Adult : None SABRINA PURVIS LPN - 01/15/2012 15:11 CDT Functional Current Daily Living Assistance : None SABRINA PURVIS LPN - 01/15/2012 15:11 CDT Dependent Habits Tobacco Use/Currently Using : No Exposure to Tobacco Smoke : Care provider denies smoking in home Smoking Status : Never smoker SABRINA PURVIS LPN - 01/15/2012 15:11 CDT Caffeine Use Grid Caffeine Use : None SABRINA PURVIS LPN - 01/15/2012 15:11 CDT Recreational Drug Use Grid Drug Use : None SABRINA PURVIS LPN - 01/15/2012 15:11 CDT Psychosocial Domestic Abuse Concerns : None SABRINA PURVIS LPN - 01/15/2012 15:11 CDT Advance Directive Advanced Directives : No SABRINA PURVIS LPN - 01/15/2012 15:11 CDT Educ Needs Learning Style Preference Adult Grid Patient : None Family : None SABRINA PURVIS LPN - 01/15/2012 15:11 CDT [facility] Document Id: [id number] CDT!26 Miscellaneous - Sabrina Purvis L.P.N. 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 Intake/History Entered On: 01/15/2012 15:11 CDT Performed On: 01/15/2012 15:02 CDT by SABRINA PURVIS LPN Intake Chief Complaint : UTI, lower flank pain on left, foul urine, hurts and has blood in it Temperature Core : 36.4C(Converted to: 97.5DegF) (LOW) Peripheral Pulse Rate : 86/min Respiratory Rate : 16/min Heart Rhythm : Regular Systolic Blood Pressure : 94mmHg Diastolic Blood Pressure : 60mmHg NIBP Mean : 71mmHg BP Location : Right upper extremity Blood Pressure Cuff Size : Regular SpO2 : 96% Oxygen Therapy : Room air Height : 164.2cm(Converted to: 5ft 5inch(es), 64.65inch(es)) Actual Weight : 64.7kg(Converted to: 142lb 10oz) Weight Source : Standing scale Dosing Weight Clinic : 64.70kg Clinic BSA : 1.72 Body Mass Index : 24.00kg/m2 SABRINA PURVIS SPEEDER TENDER - 01/15/2012 15:02 CDT Subjective Pain Symptoms : Yes SABRINA PURVIS [facility] - 01/15/2012 15:02 CDT Pain Pain Assessment Grid Pain 1 Location : Flank Laterality : Left Intensity : 8 Time Pattern : Constant Onset : Sudden Quality : Sharp, Throbbing Pain Radiation : No Aggravating Factors : None Alleviating Factors : None Associated Symptoms : Nausea SABRINA PURVIS [facility] - 01/15/2012 15:02 CDT Dependent Habits Tobacco Use/Currently Using : No Tobacco Use/Last 12 months : No Tobacco Use/Advised to Quit : No Exposure to Tobacco Smoke : Care provider denies smoking in home Smoking Status : Never smoker Alcohol Use : No SABRINA PURVIS LPN - 01/15/2012 15:02 CDT Caffeine Use Grid Caffeine Use : None SABRINA PURVIS LPN - 01/15/2012 15:02 CDT Recreational Drug Use Grid Drug Use : None SABRINA PURVIS [facility] 01/15/2012 15:02 CDT Allergy Allergies (Active) NKA Estimated Onset Date: Unspecified ; Created By: NELA RAO RN; Reaction Status: Active ; Category: Drug ; Substance: NKA ; Type: Allergy ; Updated By: NELA RAO RN; Reviewed Date: 01/15/2012 15:01 CDT [facility] Document Id: [id number] CDT!48 documented in this encounter Plan of Treatment Not on filedocumented as of this encounter Procedures Procedure Name Priority Date/Time Associated Comments Diagnosis URINALYSIS, ROUTINE Routine 01/15/2012 3:10 PM Re sults for this CDT procedure are i n the results section. URINE MICROSCOPIC Routine 01/15/2012 3:10 PM Resu lts for this CDT procedure are i n the results section. documented in this encounter Results Urine Microscopic (01/15/2012 3:10 PM CDT) Analysis Performed At Patho logist Time Signature HXUr WBC 25-50 0 - 2 POWERCHART Red Blood Cell 2-5 0 - 2 POWERCHART Clump, Urine HXUr Bacteria Few POWERCHART HXUr Epithelial Moderate POWERCHART Comment: Squamous, few transitional HX MUCOUS THREADS Small POWERCHART Specimen Anatomical Collection Method Collection Time Receive d Time (Source) Location / / Volume Laterality Urine 01/15/2012 3:10 PM 2 3:10 CDT PM CDT Tyree Quick M.D. LAB URINE ORDERABLES Performing Organization Address City/[facility] Code Phon e Number POWERCHART Urinalysis, Routine (01/15/2012 3:10 PM CDT) Patholo gist Method Time Signature HXUr Color Yellow POWERCHART Appearance Sl Cloudy POWERCHART Glucose Negative POWERCHART HXBILIRUBIN Negative POWERCHART Ketones, QL(U) Negative POWERCHART Specific 1.015 1.000 - POWERCHART [place], POCT, U 1.030 pH, POCT, Urine 7.0 5.0 - 8.0 POWERCHART Protein, Ur, Dip Negative POWERCHART Urobilinogen 0.2 POWERCHART HXNITRITE Negative POWERCHART HXBLOOD 2+ POWERCHART Leukocyte 3+ POWERCHART Esterase Source Clean Void POWERCHART Urine Specimen (Source) Anatomical Collection Method Collection Time Re ceived Time Location / / Volume Laterality Urine 01/15/2012 3:10 PM CDT Tyree Quick M.D. LAB URINE ORDERABLES Performing Organization Address City/[facility]/ZIP Code Phon e Number POWERCHART documented in this encounter Visit Diagnoses Not on filedocumented in this encounter
--- OUTSIDE RECORDS SUMMARY | 2022-08-07 10:38 | XMS_ITS | Encounter Summary ---
:[address] [facility] Address [address] [place] [address] Care Team Providers Name Role Phone Unavailable Primary Care Provider Unavailable Encounter Details Date Type Department Care Team Description 10/14/2012 Hospital Encounter HX [facility] Tyree Quick M.D. Social History Tobacco Use Types Packs/Day Years Used Date Smoking Tobacco: Never Assessed Sex Assigned at Date Recorded Female 07/07/2018 9:07 AM CDT documented as of this encounter Last Filed Vital Signs Vital Sign Reading Time Taken Comments Blood Pressure 110/70 10/14/2012 9:40 AM LAMINATION MACHINE OPERATOR Pulse 72 10/14/2012 9:40 AM LAMINATION MACHINE OPERATOR Temperature - - Respiratory Rate 14 10/14/2012 9:40 AM LAMINATION MACHINE OPERATOR Oxygen Saturation - - Inhaled Oxygen Concentration - - Weight 72.5 kg (159 lb 13.3 oz) 10/14/2012 9:40 AM LAMINATION MACHINE OPERATOR Height 163 cm (5' 4.17) 10/14/2012 9:40 AM LAMINATION MACHINE OPERATOR Body Mass Index 27.29 10/14/2012 9:40 AM LAMINATION MACHINE OPERATOR Body Mass Index Percentile 89.13 % 10/14/2012 9:40 AM CS T Growth Chart: CDC (Girls, 2-20 Years) documented in this encounter Medications at Time of Discharge Medication Sig Dispensed Refills Start Date End Date albuterol sulfate 90 Inhale 2 puffs every 0 01/2511/26/2017 mcg/actuation aerosol 4 (four) hours. powdr breath activated documented as of this encounter Progress Notes Tyree Quick M.D. - 10/14/2012 9:28 AM CST [id number] CHIEF COMPLAINT/REASON FOR VISIT Brie is here because she has some urinary frequency, some flank pain, a little lower abdominal discomfort. It does not really feel like cramping. She has been off her control pill for 2 months. Her period is about 10 days late and she is concerned she might be as he has had unprotected intercourse. She is with the same partner that she has had for the past 2 1/2 years. She feels alittle nauseous. Some breast tenderness. Denies any fever or chills. Has not noticed any blood in her urine. No previous pregnancies. PHYSICAL EXAMINATION GENERAL: On exam, she has a temperature of 37.5. BACK: No CVA tenderness. ABDOMEN: Abdomen is benign. LABORATORY: The urinalysis shows trace blood, 1+ leukocyte esterase, moderate bacteria. test is negative. IMPRESSION/REPORT/PLAN Urinary tract infection and need for contraception. PLAN: We will start her on Septra DS one twice a day for 10 days and I refilled her Sprintec. She has been on that pill in the past. It has worked well for her. She will wait until she gets her period to start the Sprintec. She will use barrier methods between now and then and if she does not get her period, she is to let us know. Also, if her symptoms don't resolve, she is to let us know. Tyree Quick M.D./kade Electronically Signed By: TYREE QUICK MD On: 10/14/2012 12:39 PM Source: [facility] [id number] Document Id: [id number] NATION MACHINE OPERATOR documented in this encounter Miscellaneous Notes Miscellaneous - Tyree Quick M.D. - 10/14/2012 11:52 AM CST Ambulatory Patient Summary [id number] [place] [address] Visit Information Name: BRIE MICHAEL [facility] Number: [id number] Current Date: 10/14/2012 11:52:53 Physicians Attending Provider: TYREE QUICK MD Primary [...] a day for 7 Days norgestimate-ethinyl estradiol (Sprintec 0.25 mg-35 mcg oral [...] Problem List Problem Status Onset Comments No current problems or disability Active Your Upcoming Appointments Date Time Location Reason Provider No Appointments found Your Goals/Additional instructions: Source: [facility] POWERCHART Document Id: [id number] NATION MACHINE OPERATOR Miscellaneous - Tyree Quick M.D. - 10/14/2012 11:52 AM CST Ambulatory Depart Summary [address] [address] Visit Information Name: BRIE MICHAEL [facility] Number: [id number] Visit Date: 10/14/2012 11:52:53 Attending Provider: TYREE QUICK MD Primary Care Provider: TYREE QUICK MD BRIE MICHAEL has been given the following list [...] a day for 7 Days norgestimate-ethinyl estradiol (Sprintec 0.25 mg-35 mcg oral tablet) 1 Oral once a day albuterol (albuterol CFC free 90 mcg/inh inhalation aerosol) 2 puff(s) Inhalation every 4 hours Attention: If you have any medications at home that are not on this list, DO NOT take them until youcontact your provider for clarification. Additional Information: Source: [facility] POWERCHART Document Id: [id number] NATION MACHINE OPERATOR Miscellaneous - Lata Dias L.P.N. - 10/14/2012 9:40 AM CST Adult Drawer In Intake/History Adult Drawer In Intake/History Entered On: 10/14/2012 9:43 LAMINATION MACHINE OPERATOR Performed On: 10/14/2012 9:40 LAMINATION MACHINE OPERATOR by LATA DIAS Intake Chief Complaint : possible uti frequent urination flank pain concerns of being LMP 09/04/12 and is usually pretty regular Temperature Core : 37.5C(Converted to: 99.5DegF) Peripheral Pulse Rate : 72/min Respiratory Rate : 14/min Heart Rhythm : Regular Systolic Blood Pressure : 110mmHg Diastolic Blood Pressure : 70mmHg NIBP Mean : 83mmHg BP Location : Right upper extremity Blood Pressure Cuff Size : Regular Height : 163cm(Converted to: 5ft 4inch(es), 64.17inch(es)) Actual Weight : 72.5kg(Converted to: 159lb 13oz) Weight Source : Standing scale Dosing Weight Clinic : 72.50kg Clinic BSA : 1.81 Body Mass Index : 27.29kg/m2 LATA DIAS - 10/14/2012 9:40 LAMINATION MACHINE OPERATOR Subjective Pain Symptoms : No LATA DIAS 10/14/2012 9:40 LAMINATION MACHINE OPERATOR Dependent Habits Tobacco Use/Currently Using : No Exposure to Tobacco Smoke : Care provider denies smoking in home Smoking Status : Never smoker LATA DIAS 10/14/2012 9:40 LAMINATION MACHINE OPERATOR Tobacco Use Grid Last Use : never LATA DIAS 10/14/2012 9:40 LAMINATION MACHINE OPERATOR Alcohol Use : No LATA DISA 10/14/2012 9:40 LAMINATION MACHINE OPERATOR Caffeine Use Grid Caffeine Use : None LATA DIAS - 10/14/2012 9:40 LAMINATION MACHINE OPERATOR Recreational Drug Use Grid Drug Use : None LATA DIAS - 10/14/2012 9:40 LAMINATION MACHINE OPERATOR Allergy Allergies (Active) NKA Estimated Onset Date: Unspecified ; Created By: NELA RAO RN; Reaction Status: Active ; Category: Drug ; Substance: NKA ; Type: Allergy ; Updated By: NELA RAO RN; Reviewed Date: 10/14/2012 9:39 LAMINATION MACHINE OPERATOR Source: [facility] POWERCHART Document Id: [id number] NATION MACHINE OPERATOR documented in this encounter Plan of Treatment Not on filedocumented as of this encounter Procedures Procedure Name Priority Date/Time Associated Comments Diagnosis TEST, U Routine 10/14/2012 10:03 AM Res ults for this LAMINATION MACHINE OPERATOR procedure are i n the results section. URINALYSIS, ROUTINE Routine 10/14/2012 10:03 AM R esults for this LAMINATION MACHINE OPERATOR procedure are i n the results section. URINE MICROSCOPIC Routine 10/14/2012 10:03 AM Res ults for this LAMINATION MACHINE OPERATOR procedure are i n the results section. documented in this encounter Results Test, Qualitative, Urine (10/14/2012 10:03 AM LAMINATION MACHINE OPERATOR) [facility] Daily Dealy Method Time Signature HXBeta-hCG Negative POWERCHART Qualitative Urine Specimen (Source) Anatomical Collection Method Collection Time Re ceived Time Location / / Volume Laterality Urine 10/14/2012 10:03 AM LAMINATION MACHINE OPERATOR Tyree Quick M.D. LAB URINE ORDERABLES Performing Organization Address City/State/ZIP Code Phon e Number POWERCHART Urinalysis, Routine (10/14/2012 10:03 AM LAMINATION MACHINE OPERATOR) [facility] Daily [place] Method Time Signature HXUr Color Yellow POWERCHART Appearance Clear POWERCHART Glucose Negative POWERCHART HXBILIRUBIN Negative POWERCHART Ketones, QL(U) Negative POWERCHART Specific 1.020 1.000 - POWERCHART [place], POCT, U 1.030 pH, POCT, Urine 7.0 5.0 - 8.0 POWERCHART Protein, Ur, Dip Negative POWERCHART Urobilinogen 0.2 POWERCHART HXNITRITE Negative POWERCHART HXBLOOD Trace-intact POWERCHART Leukocyte 1+ POWERCHART Esterase Source Clean Void POWERCHART Urine Specimen (Source) Anatomical Collection Method Collection Time Re ceived Time Location / / Volume Laterality Urine 10/14/2012 10:03 AM LAMINATION MACHINE OPERATOR Tyree Quick M.D. LAB URINE ORDERABLES Performing Organization Address City/State/ZIP Code Phon e Number POWERCHART Urine Microscopic (10/14/2012 10:03 AM LAMINATION MACHINE OPERATOR) Analysis Performed At Patho logist Time Signature HXUr WBC 5-10 0 - 2 POWERCHART Red Blood Cell 0-2 0 - 2 POWERCHART Clump, Urine HXUr Bacteria Moderate POWERCHART HXUr Epithelial Moderate POWERCHART Comment: Many squamos epithelials seen. 10/14/2012 10:32 mla Specimen Anatomical Collection Method Collection Time Receive d Time (Source) Location / / Volume Laterality Urine 10/14/2012 10:03 10/14/2012 AM LAMINATION MACHINE OPERATOR 10:03 AM LAMINATION MACHINE OPERATOR Tyree Quick M.D. LAB URINE ORDERABLES Performing Organization Address City/State/ZIP Code Phon e Number POWERCHART documented in this encounter Visit Diagnoses Not on filedocumented in this encounter
--- OUTSIDE RECORDS SUMMARY | 2022-08-07 10:38 | XMS_ITS | Encounter Summary ---
:1995 Author Organization [facility] Address [address] [place] [address] Care Team Providers Name Role Phone Unavailable Primary Care Provider Unavailable Reason for Referral Outpatient (Routine) - Closed Specialty Diagnoses / Procedures Referred By Contact Refer red To Contact Obstetrics and Jennifer Sargent APRN, [facility] [address] [place] [address] Referral ID Status Reason Start Date Expiration Date Visits Requ ested Visits Authorized [id number] Closed 02/16/2018 08/15/2018 1 1 Reason for Visit Reason Comments Routine Visit Outpatient (Routine) - Closed Specialty Diagnoses / Procedures Referred By Contact Refer red To Contact Obstetrics and Jennifer Sargent APRN, [facility] [address] [place] [address] Referral ID Status Reason Start Date Expiration Date Visits Requ ested Visits Authorized [id number] Closed 01/28/2018 07/27/2018 1 1 Encounter Details Date Type Department Care Team Description 02/16/2018 Routine Department of Jennifer Sargent Normal F irst Obstetrics and MARIA LUISA, C.N.P. (Primary Gynecology in Red [address] [place], [place] [address] [address] [place] [phone] [id number] (Work) [phone] Social History Tobacco Use Types Packs/Day Years Used Date Smoking Tobacco: Never Smokeless Tobacco: Never Alcohol Use Standard Drinks/Week Comments No 0 (1 standard drink = 0.6 oz pure alcoho l) Sex Assigned at Date Recorded Female 07/07/2018 9:07 AM CDT documented as of this encounter Last Filed Vital Signs Vital Sign Reading Time Taken Comments Blood Pressure 112/60 02/16/2018 2:44 PM CDT Pulse - - Temperature - - Respiratory Rate - - Oxygen Saturation - - Inhaled Oxygen Concentration - - Weight 106 kg (233 lb 14.5 oz) 02/16/2018 2:44 PM CDT Height - - Body Mass Index 39.93 11/13/2016 11:23 AM CHIEF GAUGER documented in this encounter Progress Notes Jennifer Sargent APRN, C.N.P. - 02/16/2018 3:00 PM CDT Patient is feeling well. Good movement. It is a girl!! Getting tomorrow! Ultrasound ispending. Plan on signing up for childbirth education classes. documented in this encounter Plan of Treatment Scheduled Referrals Name Type Priority Associated Order Schedule Diagnoses Obstetrics and Outpatient Referral Routine Expect ed: Gynecology office 03/19/2018 visit (clinic) (Approximate) , Expires: 02/16/2021 documented as of this encounter Visit Diagnoses Diagnosis Encounter For Supervision Of Normal Firs t Unspecified Trimester (HCC) - Primary documented in this encounter
--- OUTSIDE RECORDS SUMMARY | 2022-08-07 10:39 | XMS_ITS | Encounter Summary ---
:1995 Author Organization [facility] Address [address] [place] [address] Care Team Providers Name Role Phone Unavailable Primary Care Provider Unavailable Encounter Details Date Type Department Care Team Description 01/25/2011 Hospital Encounter HX [facility] ED Lei Harp M.D. [address] [place], [place] [address] (Wo rk) Social History Tobacco Use Types Packs/Day Years Used Date Smoking Tobacco: Never Assessed Sex Assigned at Date Recorded Female 07/07/2018 9:07 AM CDT documented as of this encounter Discharge Summaries Beverley Golden R.N. - 01/25/2011 9:10 PM CDT ED Discharge Instructions [address] [place] [address] Name: ERIK MICHAEL Date of : 1995 12:00 PM Visit Date: 01/25/2011 7:36 PM Address: [address] [place] [phone] Primary Care Provider: PCP, UNASSIGNED IMPORTANT: [facility] would like to thank you for allowing us to assist you with your healthcare needs. The following includes patient education materials and information regarding your injury/illness. Follow-Up Instructions: With: Address: When: Follow up with provider of choice if not improving in 5 to 7 days or if you develop severe pain or shortness of breath. Within As Needed Comments: Patient Education Materials: [id number] BRONCHITIS, VIRAL (Adult: No Abx) You have a viral bronchitis. This illness is contagious during the first few days and is spread through the air by coughing and sneezing, or by direct contact (touching the sick person and then touching your own eyes, nose, or mouth). Most viral illnesses resolve within 10-14 days with rest and simple home remedies, although they maysometimes last for several weeks. Antibiotics will not kill a virus and are generally not prescribedfor this condition. HOME CARE: 1. If symptoms are severe, rest at home for the first 2-3 days. When resuming activity, don't let yourself become overly tired. 2. Do not smoke and avoid the smoke of others. 3. You may use acetaminophen (Tylenol) or ibuprofen (Motrin, Advil) to control fever or pain, unlessanother pain medicine was prescribed. [NOTE: If you have chronic liver or kidney disease or ever hada stomach ulcer or GI bleeding, talk with your doctor before using these medicines.] (Aspirin shouldnever be used in anyone under 18 years of age who is ill with a fever. It may cause severe liver damage.) 4. Your appetite may be poor so a light diet is fine. Avoid dehydration by drinking 6-8 glasses of fluids per day (water, sport drinks such as Gatorade, juices, tea, soup, etc.). Extra fluids will helploosen secretions in the nose and lung. 5. Esgk-oap-ctnrmom cold medicines will not shorten the length of the illness, but may be helpful for cough (Robitussin DM), sore throat (Chloraseptic lozenges or spray), nasal and sinus congestion (Actifed or Sudafed). [NOTE: Do not use decongestants if you have high blood pressure.] FOLLOW UP with your doctor or as directed by our staff if you are not improving over the next week. NOTE: If you are age 65 or older, or if you have chronic asthma or COPD, we recommend a PNEUMOCOCCALVACCINATION every five years and a yearly INFLUENZAVACCINATION (FLU-SHOT) every . Ask your doctor about this. If you had an X-ray, a radiologist will review it. You will be notified of any new fin dings that may affect your care.] GET PROMPT MEDICAL ATTENTION if any of the following occur: ?? Fever over 100.4??F (38.0??C) for more than three days ?? Trouble breathing, wheezing or pain with breathing ?? Coughing up blood or increased amounts of colored sputum Weakness, drowsiness, headache, facial pain, ear pain or a stiff neck ?? [id number] [employer], [address] [place] [address]. All rights reserved. This information is not intended as a substitute for professional medical care. Always follow your healthcare professional's instructions. Discharge Prescriptions & Home Medications: Medication/Strength Dose Route Frequency Indications/Special Instructions/Comments hydrocodone-acetaminophen (hydrocodone-acetaminophen 5 mg-500 mg oral capsule) 6 cap(s) Oral every 4hours as needed for Pain albuterol (albuterol CFC free 90 mcg/inh inhalation aerosol) 2 puff(s) Inhalation every 4 hours albuterol (albuterol CFC free 90 mcg/inh inhalation aerosol) 2 puff(s) Inhalation every 4 hours Attention: If you have any medications at home that are not on this list, please contact your provider for clarification. Medication Reconciliation: Reconciliation is a process of identifying the most accurate list of all medications a patient is taking - including name, dosage, frequency, and route - and using this list to provide to the patient information about how to take those medications. ERIK MICHAEL or hermes has reviewed the home medications you have listed with us. Review the following instructions: You have NOT received any prescriptions and you have told us you are not currently taking any home medications You have NOT received any prescriptions. You have been provided a discharge medications list and you may CONTINUE taking your medications as previously prescribed by your regular providers. You have received the listed prescriptions and BEGIN all listed prescriptions as directed. Since you have listed no home medications, please check with your family doctor if you are taking any other medications. You have received the listed prescriptions and BEGIN all listed prescriptions as directed. Youhave been provided a discharge medications list and you may CONTINUE all home medications as previously prescribed by your regular providers. You have received the listed prescriptions and BEGIN all listed prescriptions as directed. Youhave been provided a discharge medications list. The following CHANGES have been made to your medication list; Otherwise, CONTINUE all home medications as previously prescribed by your regular provider. IMPORTANT: We examined and treated you today [...] the instructions above carefully. If you are a patient that is being discharged from the Emergency Department after receiving narcotics or other medications that may impair your judgment you may be a risk to yourself or others if you operate a motor vehicle. We recommend that you arrange a ride home with a responsible libertarian. FERNANDA Montano ALEXANDRA JADE , or responsible libertarian have received this information and my questions have been answered. I have discussed any challenges I see with this plan with the nurse or physician. Patient Signature or Responsible Constitution Party Date/Time Provider Signature Date/Time Medication Reconciliation: Reconciliation is a process of identifying the most accurate list of all medications a patient is taking - including name, dosage, frequency, and route - and using this list to provide to the patient information about how to take those medications. ERIK MICHAEL or designee has reviewed the home medications you have listed with us. Review the following instructions: You have NOT received any prescriptions and you have told us you are not currently taking any home medications You have NOT received any prescriptions. You have been provided a discharge medications list and you may CONTINUE taking your medications as previously prescribed by your regular providers. You have received the listed prescriptions and BEGIN all listed prescriptions as directed. Since you have listed no home medications, please check with your family doctor if you are taking any other medications. You have received the listed prescriptions and BEGIN all listed prescriptions as directed. Youhave been provided a discharge medications list and you may CONTINUE all home medications as previously prescribed by your regular providers. You have received the listed prescriptions and BEGIN all listed prescriptions as directed. Youhave been provided a discharge medications list. The following CHANGES have been made to your medication list; Otherwise, CONTINUE all home medications as previously prescribed by your regular provider. IMPORTANT: We examined and treated you today [...] the instructions above carefully. If you are a patient that is being discharged from the Emergency Department after receiving narcotics or other medications that may impair your judgment you may be a risk to yourself or others if you operate a motor vehicle. We recommend that you arrange a ride home with a responsible libertarian. FERNANDA Montano ALEXANDRA JADE , or responsible libertarian have received this information and my questions have been answered. I have discussed any challenges I see with this plan with the nurse or physician. Patient Signature or Responsible Constitution Party Date/Time Provider Signature Date/Time This document has images extracted. Please consider using [employer] for all your patient education needs. Source: [facility] POWERCHART Document Id: [id number] Beverley Golden R.N. - 01/25/2011 9:10 PM CDT ED Depart Summary [facility] Emergency Department Clinical Discharge Summary PERSON INFORMATION Name ERIK MICHAEL Age 15 Years 1995 12:00 PM Sex Female Language PCP PCP, UNASSIGNED Marital Status Single N [id number] Visit Id Visit Reason Chest pain; anxiety attack/ shortness of breath Specialty Enc Type Emergency Med Service Emergency Medicine Referred by Track Group [facility] ED Discharge 01/25/2011 9:10 PM Tracking Id [id number] Checkout 01/25/2011 9:10 PM Checkin 01/25/2011 7:36 PM Acuity 3 -Urgent Dispo Type Discharged to Home or Self Care Arrival 01/25/2011 7:36 PM Reg Status LOS 000 01:34 Address: [address] [place] [phone] Comment: PROVIDER INFORMATION Provider Role Assigned Unassigned LELO HARP MD ED Provider 01/25/2011 7:55 PM BEVERLEY GOLDEN ACCOUNT REVIEW SPECIALIST Nurse 01/25/2011 8:41 PM DIAGNOSIS Acute Bronchitis Comment: PATIENT EDUCATION INFORMATION Instructions: BRONCHITIS, No Abx (Adult) Follow up: With: Address: When: Follow up with provider of choice if not improving in 5 to 7 days or if you develop severe pain or shortness of breath. Within As Needed Comments: Source: [facility] POWERCHART Document Id: [id number] Electronically signed by Fidelina [facility] Asphalt Surface Heater Operator [id number] at 03/07/2017 11:19 AM CDT documented in this encounter Medications at Time of Discharge Medication Sig Dispensed Refills Start Date End Date albuterol sulfate 90 Inhale 2 puffs every 0 01/2511/26/2017 mcg/actuation aerosol 4 (four) hours. powdr breath activated documented as of this encounter Nursing Notes Beverley Golden R.N. - 01/25/2011 7:47 PM CDT ED Primary Assessment ED Primary Assessment Entered On: 01/25/2011 20:11 CDT Performed On: 01/25/2011 19:47 CDT by BEVERLEY GOLDEN RN Reason For Visit Diagnoses(Active) Chest pain Date: 01/25/2011 19:48 CDT ; Diagnosis Type: Reason For Visit ; Confirmation: Complaint of ; Classification: Medical ; Clinical Service: Emergency medicine ; Code: PNED ; Probability: 0 ; Diagnosis Code: [id number] Triage Chief Complaint Description: arrives with mom with c/o chest pain and can't catch breath Information Given By: Patient Accompanied By: Mother Mode of Arrival ED: Private vehicle Track: Medical Pain Symptoms: Yes Vital Signs Assessed: Yes BEVERLEY GOLDEN RN - 01/25/2011 19:47 CDT Pain Pain Assessment Grid Pain 1 Pain 2 Location: Chest Laterality: Right Intensity: 3 Time Pattern: Acute Onset: Sudden BEVERLEY GOLDEN RN - 01/25/2011 19:47 CDT BEVERLEY GOLDEN RN - 01/25/2011 19:47 CDT Vital Signs Temperature Core: 37.8C(Converted to: 100.0DegF) Peripheral Pulse Rate: 110/min (HI) Respiratory Rate: 20/min Systolic Blood Pressure: 136mmHg (>HHI) Diastolic Blood Pressure: 82mmHg NIBP Mean: 100mmHg BP Location: Left upper extremity SpO2: 100% Oxygen Flow Rate: 2.000L/min Oxygen Therapy: Nasal Cannula BEVERLEY GOLDEN RN - 01/25/2011 19:47 CDT ED Physician Notification Time ED Physician Notification Time: 01/25/2011 19:52 CDT BEVERLEY GOLDEN RN - 01/25/2011 19:47 CDT JORDON JORDON Level 1: No JORDON Level 2: No JORDON Level 3: Many BEVERLEY GOLDEN RN - 01/25/2011 19:47 CDT Allergy Allergies (Active) NKA Estimated Onset Date: Unspecified ; Created By: BEVERLEY GOLDEN RN; Reaction Status: Active ; Category: Drug ; Substance: NKA ; Type: Allergy ; Updated By: BEVERLEY GOLDEN RN; Reviewed Date: 01/25/2011 19:52 CDT Respiratory Oxygen Stop Time: 01/25/2011 20:51 CDT Oxygen Flow Rate: 2.000L/min BEVERLEY GOLDEN RN - 01/25/2011 20:51 CDT Airway: Patent Respirations: Unlabored Respiratory Pattern: Regular Oxygen Start Time: 01/25/2011 19:52 CDT Oxygen Therapy: Nasal Cannula BEVERLEY GOLDEN RN - 01/25/2011 19:47 CDT Cardiovascular Heart Rhythm: Regular Skin Color: Normal for ethnicity Skin Description: Dry Skin Temperature: Warm BEVERLEY GOLDEN RN - 01/25/2011 19:47 CDT Neurological Level of Consciousness: Alert Orientation: Oriented x 3 Characteristics of Speech: Clear BEVERLEY GOLDEN RN - 01/25/2011 19:47 CDT ED Psychosocial Affect/Behavior: Calm, Cooperative, Appropriate Domestic Concerns: None BEVERLEY GOLDEN RN - 01/25/2011 19:47 CDT Gastrointestinal Nutrition ED: Adequate BEVERLEY GOLDEN RN - 01/25/2011 19:47 CDT Musculoskeletal Fall Prevention Education Provided: Yes BEVERLEY GOLDEN RN - 01/25/2011 19:47 CDT Source: [employer] Document Id: [id number] CDT!4 documented in this encounter ED Notes Beverley Golden R.N. - 01/25/2011 8:58 PM CDT ED Disposition Summary ED Disposition Summary Entered On: 01/25/2011 20:58 CDT Performed On: 01/25/2011 20:58 CDT by BEVERLEY GOLDEN RN ED Disposition Summary Accompanied By: Mother Mode of Discharge: Ambulatory Transportation: Private vehicle Patient Status at Discharge from ED: Improved Comment: home with albutrol inhaler BEVERLEY GOLDEN RN - 01/25/2011 20:58 CDT Source: [employer] Document Id: [id number] CDT!7 Lelo Harp M.D. - 01/25/2011 8:05 PM CDT Chest Pain *ED Patient: ERIK MICHAEL - CF MRN Age: 15 years Sex: Female : 1995 Author: LELO HARP MD Basic Information Time seen: Date & time 01/25/2011 20:06:00. History source: Patient, family. Arrival mode: Walking. History limitation: None. History of Present Illness The patient presents with chest pain,For the past month has been having episodes of chest pain that are sharp and stabbing. Had a spell tonight that started while riding in the car. 9 out of 10 pain. Resolved spontaneously prior to arrival. and Mentions she has had a cold for the past 5 days with a productive cough, but is improving. Has had same pain without cold symptoms over the past month, too. The onset was 1 hours ago and abrupt. The course/duration of symptoms is resolved. Location: Right anterior. Radiating pain: none. The character of symptoms is sharp and stabbing. The degree at onset wassevere and 9 /10. . The degree at maximum was minimal. The degree at present is minimal. Exacerbating factors consist of movement. The relieving factor is none. Risk factors consist of none. Prior episodes: none. Therapy today Tums. Associated symptoms: denies shortness of breath, denies nausea and denies vomiting. Review of Systems Constitutional symptoms: no chills Skin symptoms: Negative except as documented in HPI. Eye symptoms: Negative except as documented in HPI. ENMT symptoms: Nasal congestion. Respiratory symptoms: Cough. Cardiovascular symptoms: Negative except as documented in HPI. Gastrointestinal symptoms: Negative except as documented in HPI. Genitourinary symptoms: Negative except as documented in HPI. Musculoskeletal symptoms: Negative except as documented in HPI. Neurologic symptoms: Negative except as documented in HPI. Psychiatric symptoms: Negative except as documented in HPI. Endocrine symptoms: Negative except as documented in HPI. Hematologic/Lymphatic symptoms: Negative except as documented in HPI. Allergy/immunologic symptoms: Negative except as documented in HPI. Health Status Allergies: . Allergic Reactions (all) NKA Past Medical/ Family/ Social History Medical history: Negative. Surgical history: Negative. Social history: Occupation: Employed, Family/social situation: Intact family. Physical Examination Vital signs: Per nurse's notes. General: Alert. no acute distress. Skin: Warm. dry. pink. Head: Normocephalic. atraumatic. Neck: Supple. no tenderness. Eye: Pupils are equal, round and reactive to light Ears, nose, mouth and throat: Tympanic membranes clear. Oral mucosa moist. No pharyngeal erythema orexudate. Cardiovascular: Regular rate and rhythm. No murmur. No edema. no cardiac rub, no click. Respiratory: Lungs are clear to auscultation. respirations are non-labored. breath sounds are equal.Symmetrical chest wall expansion. Cough: mild. Chest wall: No tenderness Musculoskeletal: Normal ROM Gastrointestinal: Soft. Nontender. Neurological: Alert and oriented to person, place, time, and situation Lymphatics: No lymphadenopathy Medical Decision Making Differential Diagnosis:Pneumonia, gastroesophageal reflux disease, pleurisy, chest wall pain. Documents reviewed:Prior records. Electrocardiogram:Rate 102, normal sinus rhythm, No ST-T changes, no ectopy, EP Interp. Results review:Interpretation Labs unremarkable, Normal results. Chest X-Ray:No acute disease process. Reexamination/ Reevaluation Re-examination/Re-evaluation:Vital signs Per nurse's notes, Pain status Resolved, Assessment Given 2puffs of albuterol MDI for cough, ibuprofen 600 mg for pain/cough/head congestion.. Impression and Plan Diagnosis Chest pain 786.5 (Discharge, Emergency medicine, Medical) Acute bronchitis 466.0 (Discharge, Emergency medicine, Medical) Discharge plan Condition: Improved, Stable. Dispositioned: To home. Patient was given the following educational materials: BRONCHITIS, No Abx (Adult). Follow up with: Follow up with provider of choice if not improving in 5 to 7 days or if you develop severe pain or shortness of breath. Within As Needed, In: Discussed possibility of anxiety/panic, although Tonie does not feel she is stressed/depressed/anxious. 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 Keep possibility of this open over time.. Counseled: Patient, Family. Source: [facility] POWERCHART Document Id: [id number]} documented in this encounter Miscellaneous Notes Miscellaneous - Beverley Golden R.N. - 01/25/2011 8:58 PM CDT Valuables/Belongings Valuables/Belongings Entered On: 01/25/2011 20:58 CDT Performed On: 01/25/2011 20:58 CDT by BEVERLEY GOLDEN RN Valuables/Belongings Comment: all with pt BEVERLEY GOLDEN RN - 01/25/2011 20:58 CDT Source: [employer] Document Id: [id number] CDT!3 Miscellaneous - Beverley Golden R.N. - 01/25/2011 7:36 PM CDT Facility Charge Ticket Facility Charge Ticket Entered On: 01/25/2011 20:59 CDT Performed On: 01/25/2011 19:36 CDT by BEVERLEY GOLDEN RN Facility Charge TVL Level for Facility Charge Ticket: Level 5 Mode of Arrival ED: Private vehicle [facility] Mode of Arrival Interpreted: Standard [facility] Process Management: None [facility] Order Management: EKG, RT, Ancillary Services, Xray - plain films, Lab tests 30 Minutes Critical Care: No [facility] Nursing Assessment: Triage and 1-2 nursing assessments [facility] Visit Level: 46915 Level 4 BEVERLEY GOLDEN RN - 01/25/2011 20:58 CDT Source: [employer] Document Id: [id number] CDT!10 documented in this encounter Plan of Treatment Not on filedocumented as of this encounter Visit Diagnoses Not on filedocumented in this encounter
--- OUTSIDE RECORDS SUMMARY | 2022-08-07 10:39 | XMS_ITS | Encounter Summary ---
:1995 Author Organization [facility] Address [address] [place] [address] Care Team Providers Name Role Phone Unavailable Primary Care Provider Unavailable Encounter Details Date Type Department Care Team Description 07/24/2008 Hospital Encounter HX NO MAPPING Navi Vicente, P.A.- C. Social History Tobacco Use Types Packs/Day Years Used Date Smoking Tobacco: Never Assessed Sex Assigned at Date Recorded Female 07/07/2018 9:07 AM CDT documented as of this encounter Plan of Treatment Not on filedocumented as of this encounter Visit Diagnoses Not on filedocumented in this encounter
--- OUTSIDE RECORDS SUMMARY | 2022-08-07 10:39 | XMS_ITS | Encounter Summary ---
:1995 Author Organization [facility] Address [address] [place] [address] Care Team Providers Name Role Phone Unavailable Primary Care Provider Unavailable Encounter Details Date Type Department Care Team Description 05/26/2008 Hospital Encounter HX [facility] Boris Last, INPT/OBSRV M.DDennise [address] [place] [address] ALLY Cronin [id number] (Wo rk) Social History Tobacco Use Types Packs/Day Years Used Date Smoking Tobacco: Never Assessed Sex Assigned at Date Recorded Female 07/07/2018 9:07 AM CDT documented as of this encounter Plan of Treatment Not on filedocumented as of this encounter Visit Diagnoses Not on filedocumented in this encounter
--- OUTSIDE RECORDS SUMMARY | 2022-08-07 10:39 | XMS_ITS | Encounter Summary ---
:1995 Author Organization [facility] Address [address] [place] [address] Care Team Providers Name Role Phone Unavailable Primary Care Provider Unavailable Encounter Details Date Type Department Care Team Description 07/18/2009 Hospital Encounter [facility]X [facility] INPT/OBSRV Carla Briggs M.D. [address] [place], [place] [address] (Wo rk) Social History Tobacco Use Types Packs/Day Years Used Date Smoking Tobacco: Never Assessed Sex Assigned at Date Recorded Female 07/07/2018 9:07 AM CDT documented as of this encounter Plan of Treatment Not on filedocumented as of this encounter Visit Diagnoses Not on filedocumented in this encounter
--- OUTSIDE RECORDS SUMMARY | 2022-08-07 10:39 | XMS_ITS | Encounter Summary ---
:1995 Author Organization [facility] Address [address] [place] [address] Care Team Providers Name Role Phone Unavailable Primary Care Provider Unavailable Encounter Details Date Type Department Care Team Description 11/22/2009 Hospital Encounter [facility] INPT/OBSRV Emily Soriano Jr., M.D. [address] [place] [phone] (Wo rk) Social History Tobacco Use Types Packs/Day Years Used Date Smoking Tobacco: Never Assessed Sex Assigned at Date Recorded Female 07/07/2018 9:07 AM CDT documented as of this encounter Plan of Treatment Not on filedocumented as of this encounter Visit Diagnoses Not on filedocumented in this encounter
--- OUTSIDE RECORDS SUMMARY | 2022-08-07 10:39 | XMS_ITS | Encounter Summary ---
:1995 Author Organization [facility] Address [address] [place] [address] Care Team Providers Name Role Phone Unavailable Primary Care Provider Unavailable Encounter Details Date Type Department Care Team Description 06/19/[address] [facility] INPT/OBSRV Caridad Diaz M.D. [address] [place] [phone] (Wo rk) Social History Tobacco Use Types Packs/Day Years Used Date Smoking Tobacco: Never Assessed Sex Assigned at Date Recorded Female 07/07/2018 9:07 AM CDT documented as of this encounter Plan of Treatment Not on filedocumented as of this encounter Visit Diagnoses Not on filedocumented in this encounter
--- OUTSIDE RECORDS SUMMARY | 2022-08-07 10:39 | XMS_ITS | Encounter Summary ---
:1995 Author Organization [facility] Address [address] [place] [id number] Care Team Providers Name Role Phone Unavailable Primary Care Provider Unavailable Encounter Details Date Type Department Care Team Description 07/24/2008 Hospital Encounter HX [facility] INPT/OBSRV Crescencio Vicente, P.A.-C. Social History Tobacco Use Types Packs/Day Years Used Date Smoking Tobacco: Never Assessed Sex Assigned at Date Recorded Female 07/07/2018 9:07 AM CDT documented as of this encounter Plan of Treatment Not on filedocumented as of this encounter Visit Diagnoses Not on filedocumented in this encounter
--- OUTSIDE RECORDS SUMMARY | 2022-08-07 10:39 | XMS_ITS | Encounter Summary ---
:[address] [facility] Address [address] [place] [address] Care Team Providers Name Role Phone Unavailable Primary Care Provider Unavailable Encounter Details Date Type Department Care Team Description 10/16/2008 Hospital Encounter [facility] INPT/OBSRV Carla Briggs M.D. [address] [place], [place] [address] (Wo rk) Social History Tobacco Use Types Packs/Day Years Used Date Smoking Tobacco: Never Assessed Sex Assigned at Date Recorded Female 07/07/2018 9:07 AM CDT documented as of this encounter Plan of Treatment Not on filedocumented as of this encounter Visit Diagnoses Not on filedocumented in this encounter
--- OUTSIDE RECORDS SUMMARY | 2022-08-07 10:39 | XMS_ITS | Encounter Summary ---
:1995 Author Organization [facility] Address [address] [place] [address] Care Team Providers Name Role Phone Unavailable Primary Care Provider Unavailable Encounter Details Date Type Department Care Team Description 12/26/2009 Hospital Encounter HX [facility] INPT/OBSRV Naveed Greenberg, MARIA LUISA, C.N.P., D.N.P. [address] [place] [address] (Wo rk) Social History Tobacco Use Types Packs/Day Years Used Date Smoking Tobacco: Never Assessed Sex Assigned at Date Recorded Female 07/07/2018 9:07 AM CDT documented as of this encounter Plan of Treatment Not on filedocumented as of this encounter Visit Diagnoses Not on filedocumented in this encounter
--- OUTSIDE RECORDS SUMMARY | 2022-08-07 10:39 | XMS_ITS | Encounter Summary ---
:1995 Author Organization [facility] Address [address] [place] [address] Care Team Providers Name Role Phone Unavailable Primary Care Provider Unavailable Encounter Details Date Type Department Care Team Description 06/19/2010 Hospital Encounter [facility] INPT/OBSRV Sharon Robertson M.D. [address] [place] [id number] (Wo rk) Social History Tobacco Use Types Packs/Day Years Used Date Smoking Tobacco: Never Assessed Sex Assigned at Date Recorded Female 07/07/2018 9:07 AM CDT documented as of this encounter Plan of Treatment Not on filedocumented as of this encounter Visit Diagnoses Not on filedocumented in this encounter
[2022-08-07 13:02] LABS: Hepatitis B Surface Antigen* Negative (Negative)
[2022-08-07 13:20] LABS: Hepatitis C Virus Antibody* Negative (Negative)
[2022-08-07 13:51] LABS: Chlamydia DNA Amplified* NOT DETECTED (No Detected); GC DNA Amplified* NOT DETECTED (No Detected)
[2022-08-07 14:53] LABS: HIV 1/2/P24 Combo Screen* Negative (Negative)
[2022-08-08 20:26] LABS: Rapid Plasma Reagin (RPR) Non Reactive (Non Reactive)
[2022-08-09 03:25] LABS: Varicella-Zoster Virus Ab, IgG 708.9 IV
[2022-08-09 03:26] LABS: Rubella Antibody IgG 8.9 IU/mL
== END 2022-08-07 10:32 | disposition home or self-care (01) ==
PROVIDERS: Visit Provider Registered Nurse
DX: Z34.91 Encounter for supervision of normal pregnancy, unspecified, first trimester (principal); Z3A.08 8 weeks gestation of pregnancy
CPT/HCPCS: 86592; 86703; 86762; 86787; 86803; 86850; 86900; 86901; 87086; 87340; 87491; 87591; 87624; 88175

== ENCOUNTER 2022-10-23 08:16 | Outpatient (CLI) | payer OTHER, SELFPAY ==
--- NOTE | 2022-10-23 08:15 | CRLHL7_ITS ---
For Patients: As a result of the Century Cures Act, medical imaging exams and procedure reports are released immediately into your electronic medical record. You may view this report before your referring provider. If you have questions, please contact your health care provider. INDICATION: Evaluate anatomy. COMPARISON: 08/07/2022 TECHNIQUE: Real time varela scale imaging of the fetus was performed as well as color Doppler analysis of the umbilical vessels. FINDINGS: Sonographic imaging demonstrates a single living intrauterine gestation. Fetus demonstrates a regular cardiac rate of 143 beats per minute. Fetus has a vertex position. The placenta lies posteriorly without evidence of placenta previa. The edge of the placenta is located 3.6 cm from the internal cervical os. Amniotic fluid volume appears normal. Single deepest vertical pocket: 3.5 cm. The cervix is closed and measures 3.9 cm in length. The composite ultrasound gestational age is calculated at 19 weeks 4 days with an estimated sonographic due date of 03/15/2023. The estimated weight is 309 grams which lies at the 54th %. The following biometric measurements were obtained: Biparietal diameter: 4.1 cm/18 weeks 4 days 12th% Head circumference: 16.7 cm/19 weeks 2 days 32nd% Abdominal circumference: 14.5 cm/19 weeks 6 days 53rd% Femur length: 3.2 cm/19 weeks 6 days 52nd% The HC/AC ratio measures: 1.15 range (1.08-1.26) On anatomic survey, there is a normal appearance of the cerebral ventricles, cavum septi pellucidi, cisterna magna and cerebellum. Incomplete visualization of the profile due to position. The cervical, thoracic and lumbar spine are well visualized and appear normal. Incomplete visualization of the four-chamber heart and outflow tracts due to position. The diaphragm and stomach appear normal. The kidneys and bladder also appear normal. There is a normal three-vessel cord and incomplete visualization of the cord insertion site. The four extremities appear normal. IMPRESSION: Incomplete evaluation of the heart, profile and cord insertion due to position. Short-term follow-up recommended in 2 weeks. Remainder of the anatomic survey is normal. Concordance of clinical and sonographic dates. Dictated by Tex Mathias MD @ 10/23/2022 9:45:27 AM (Electronically Signed)
== END 2022-10-23 08:17 | disposition home or self-care (01) ==
PROVIDERS: Visit Provider Obstetrics & Gynecology
DX: Z34.92 Encounter for supervision of normal pregnancy, unspecified, second trimester (principal); O36.8320 Maternal care for abnormalities of the fetal heart rate or rhythm, second trimester, not applicable or unspecified; Z3A.19 19 weeks gestation of pregnancy
CPT/HCPCS: 76805

== ENCOUNTER 2022-11-06 07:15 | Outpatient (CLI) | payer OTHER, SELFPAY ==
--- NOTE | 2022-11-06 07:15 | CRLHL7_ITS ---
For Patients: As a result of the Century Cures Act, medical imaging exams and procedure reports are released immediately into your electronic medical record. You may view this report before your referring provider. If you have questions, please contact your health care provider. INDICATION: FOLLOW UP ON SUBOPTIMAL ANATOMY SCAN COMPARISON: 10/23/2022 TECHNIQUE: Real time varela scale imaging of the fetus was performed. FINDINGS: Sonographic imaging demonstrates a single living intrauterine gestation. Fetus demonstrates a regular cardiac rate of 157 beats per minute. Fetus has a breech position. The placenta lies posteriorly. Amniotic fluid volume appears normal. Single deepest vertical pocket: 3.8 cm. Placental cord insertion is normal located 3 cm from the placental edge. IMPRESSION: Normal profile, heart and placental cord insertion. Dictated by Tex Mathias MD @ 11/07/2022 10:02:49 AM (Electronically Signed)
== END 2022-11-06 07:16 | disposition home or self-care (01) ==
LOC: US 07:18
PROVIDERS: Visit Provider Obstetrics & Gynecology
DX: Z34.90 Encounter for supervision of normal pregnancy, unspecified, unspecified trimester (principal)
CPT/HCPCS: 76816

== ENCOUNTER 2022-12-18 09:21 | Outpatient (CLI) | payer OTHER, SELFPAY | END 2022-12-18 09:22 | disposition home or self-care (01) | LOC: NFLDREF 12-20 05:51 | PROVIDERS: Visit Provider Obstetrics & Gynecology | DX: Z34.92 Encounter for supervision of normal pregnancy, unspecified, second trimester (principal); Z3A.27 27 weeks gestation of pregnancy | CPT/HCPCS: 86592 ==

== ENCOUNTER 2022-12-25 08:52 | Outpatient (CLI) | payer OTHER, SELFPAY ==
[2022-12-25 09:15] VITALS: BP 114/72; PULSE 85; RESP 16; TEMP 36.6
[2022-12-25 09:16] VITALS: PULSE 86; O2SAT 97
--- NOTE | 2022-12-25 10:10 | PC.OBNST ---
NST Note NST Note Start: 12/25/22 08:56 Freq: ONCE Status: Active Protocol: Document 12/25/22 10:09 ELADIA (Rec: 12/25/22 10:10 ELADIA [id number]) NST Note 2 Para (# of births) 1 EDC 03/15/23 Gestational Age In Weeks & Days 28 Weeks & 4 Days Patient Presented with Complaint(s) of Other If Observation after an injury, describe Fall on 12/23/22 at 1830 to her back. Reactive Yes Appropriate for Gestational Age Yes MU Castillo, RNC Date 12/25/22 Reactive Yes Appropriate for Gestational Age Yes MU Del Cid, RNC Date 12/25/22 OB NST charge Yes Complete NST Note via Write Note Yes The provider's electronic signature indicates the NST is reactive/appropriate for gestational age. *Note to provider: If an addendum is required, open the patient's chart and click on the note under the Nurse/Allied Health tab.
== END 2022-12-25 10:15 | disposition home or self-care (01) ==
LOC: OB OUT 08:53 → OB 08:54
PROVIDERS: Visit Provider Obstetrics & Gynecology
DX: O26.893 Other specified pregnancy related conditions, third trimester (principal); W19.XXXA Unspecified fall, initial encounter; Z3A.28 28 weeks gestation of pregnancy
CPT/HCPCS: 59025; 99213

== ENCOUNTER 2023-01-08 10:46 | Outpatient (CLI) | payer OTHER, SELFPAY ==
--- NOTE | 2023-01-08 11:00 | CRLHL7_ITS ---
For Patients: As a result of the Century Cures Act, medical imaging exams and procedure reports are released immediately into your electronic medical record. You may view this report before your referring provider. If you have questions, please contact your health care provider. INDICATION: COVID IN COMPARISON: 11/06/2022, 10/23/2022 TECHNIQUE: Real time varela scale imaging of the fetus was performed as well as color Doppler and spectral Doppler analysis of the umbilical artery. FINDINGS: Sonographic imaging demonstrates a single living intrauterine gestation. Fetus demonstrates a regular cardiac rate of 149 beats per minute. Fetus has a vertex position. The placenta lies posteriorly. Amniotic fluid volume appears normal and there is a single deepest vertical pocket: 4.4 cm. The estimated weight is 1653gm which lies at the 47th %. On the prior OB ultrasound exam dated 10/23/2022 the estimated weight was at the 54th%. BPD 58th percentile. HC 43rd percentile. AC 49th percentile. FL 43rd percentile. The HC/AC ratio measures 1.08 range (0.96-1.17). IMPRESSION: Sonographic gestational age 31 weeks 1 day and sonographic due date 03/11/2023. Sonographic age is 4 days ahead of the clinical age. Estimated weight 47th percentile. Abdominal circumference 49th percentile. Dictated by Tex Mathias MD @ 01/08/2023 12:30:19 PM (Electronically Signed)
== END 2023-01-08 10:47 | disposition home or self-care (01) ==
LOC: US 10:47
PROVIDERS: Visit Provider Obstetrics & Gynecology
DX: Z34.93 Encounter for supervision of normal pregnancy, unspecified, third trimester (principal); Z3A.31 31 weeks gestation of pregnancy
CPT/HCPCS: 76816

== ENCOUNTER 2023-03-08 04:57 | Inpatient (IN) | payer OTHER, SELFPAY ==
[2023-03-08] VITALS (28 sets, daily range): BP systolic 98–121; BP diastolic 49–95; PULSE 57–97; RESP 16–20; TEMP 36.4–36.9; O2SAT 97–98; BMI 40.7
[2023-03-08 06:20] LABS: Hemoglobin* 11.4 gm/dL (12.0-16.0)
[2023-03-08] MEDS: LACTATED RINGERS 1000 ML 1,000 ML 1200 ML IV (07:15)
[2023-03-08] MEDS: LACTATED RINGERS 1000 ML 1,000 ML 100 ML IV (08:01)
--- NOTE | 2023-03-08 08:03 | SUR.OPER ---
Dr. Stewart verified she does not want to send Placenta.
--- NOTE | 2023-03-08 08:23 | W.ANESCHARGE ---
Anesthesia Charges Start Date/Time Anesthesia Start Date: 03/08/23 Anesthesia Start Time: 07:35 Stop Date/Time Anesthesia Stop Date: 03/08/23 Anesthesia Stop Time: 08:55
--- NOTE | 2023-03-08 08:45 | SUR.OPER ---
MARY Hyde RN PERFORMED FUNDAL MASSAGE AT END OF CASE WITH SMALL AMOUNT OF BLOODY DISCHARGE.
--- NOTE | 2023-03-08 08:59 | W.PM.NB ---
Nerve Block Nerve Block Time Seen by Provider: 08:44 Date Seen: 03/08/23 Type of block requested by surgeon for post-operative analgesia: TAP Side: bilateral Time out performed: Yes Verification of patient name: Yes Verification of date of : Yes Site marking: site marked Name of person performing procedure: Anjum Continuous monitoring Was continuous monitoring of O2 sat, B/P, quality assurance monitor body, recorded every 15 minutes?: Yes Procedure Checklist: sterile prep, needles and gloves Ultrasound guided. Images saved: Yes Medications given in 5ml increments after negative aspiration: Marcaine %: 0.25 mL: 30 Needle gauge: 20 and Exparel mL: 10 Patient tolerated procedure well: Yes Additional comments: Needle noted adjacent to nerve Block Charges Block Charge (with Pro Fee): TAP Bilateral Use of Ultrasound Machine for Block: Yes- US Guidance/pain block
--- NOTE | 2023-03-08 12:51 | W.ANESCHARGE ---
Anesthesia Charges Start Date/Time Anesthesia Start Date: 03/08/23 Anesthesia Start Time: 07:35 Stop Date/Time Anesthesia Stop Date: 03/08/23 Anesthesia Stop Time: 08:55
--- NOTE | 2023-03-08 13:00 | PM.OBPRCCS ---
Procedure Pre-op/Post-op diagnoses: Pre-Op/Post-Op Diagnoses Operation Date: 03/08/23 07:15 <No data on this case meets the specified criteria> Procedure Done: Global Procedure Details: Procedures Operation Date: 03/08/23 07:15 Actual Procedure Side Surgeon p Repeat Section Sarah Stewart MD Narrative: PREOPERATIVE DIAGNOSIS: 39 weeks' gestation Previous , desires repeat POSTOPERATIVE DIAGNOSIS: 39 weeks' gestation Previous , desires repeat PROCEDURE: Repeat low-transverse section SURGEON: Sarah Stewart MD ANESTHESIA: Spinal QBL: 448 mL FINDINGS: 1. Male , cephalic OA presentation, Apgars of 9 and 9, weight 2980 g 2. Normal appearance to uterus, bilateral tubes and ovaries. COMPLICATIONS: None PROCEDURE IN DETAIL: Patient was taken to the operating room with IV running. She received cefazolin in preoperative prophylaxis. Spinal anesthesia was administered. Moran catheter was inserted. She was prepped and draped in the usual sterile fashion in a dorsal supine position with a leftward tilt. Anesthesia was tested and found to be adequate. A low-transverse skin incision was made with a scalpel and carried through to the underlying layer of fascia with the scalpel. The subcutaneous fat was dissected off the underlying fascia bluntly. The fascia was nicked in the midline with a scalpel, and this incision was extended laterally with scissors. The rectus muscles were bluntly in the midline. Peritoneum was identified and entered bluntly. Bovie was used to widen this opening laterally. Tim O retractor was inserted and tightened down, providing excellent visualization of the lower uterine segment. There was a single filmy adhesion extending upwards from the bladder reflection that was lysed sharply. Otherwise, the bladder reflection was found to be well below the planned site for hysterotomy. Low-transverse uterine incision was made with a scalpel. Incision was widened bluntly. The 's head was grasped through the hysterotomy and delivered with the help of fundal pressure. The remainder of the body delivered without incident. Cord was clamped and cut after 30 seconds. was handed off to attending nurses. The placenta was delivered with gentle traction on the cord. The uterus was cleaned of all clots and debris with the dry lap pad. The hysterotomy was reapproximated with 0 Vicryl in a running, locked fashion. Two additional [id number] sutures were used to obtain hemostasis. The adnexa were examined and noted to be normal in appearance. The cul-de-sac and gutters were cleansed with dampened laparotomy sponge, removing any further clots and debris. The Tim O retractor was removed. The hysterotomy was reexamined and found to be hemostatic. The peritoneum was reapproximated with 2 0 Vicryl in a running fashion. The rectus muscles were examined and found to be hemostatic. The fascia was reapproximated with 0 Vicryl in a running fashion. Subcutaneous fat was irrigated and Bovie used on oozing vessels. The subcutaneous fat was reapproximated with 2 0 plain gut suture in an interrupted fashion. The skin was closed with a subcuticular stitch of 4-0 Vicryl. Surgical glue was applied above this. Patient tolerated procedure well was taken to recovery area in stable condition. [place] Infant total score - 1 minute: 9 total score - 5 minute: 9
--- NOTE | 2023-03-08 13:06 | P.LDBA_ITS ---
Subjective History of Present Illness Narrative: Patient is being admitted to Labor and Delivery for repeat . She is a 27 year old at 39 weeks gestation. repeat scheduled for 03/08/23 = 39 0/[address] Stewart H&P 02/17/2023 Dr. Stewart difficult IV placement Specific Issues/Plans G2, P1001 : Madhu ROGERS for contraception Plans 1. Previous (failed IOL, arrest of dilation).? * Desires repeat .2. BMI 36.8: Rec. weekly BPP and/or NST starting at 36 week 3. Rubella non-immune.? Rec. PP vaccine. 4.? 3.9 cm subchorionic hemorrhage on 1st trimester US. 5. Covid positive 08/07/22 out of quarantine 08/17/22.? US for EFW in 3rd trimester. Ordered 12/18/22 -01/08/23: EFW: 47%, BPD: 58%, HC: 43%, AC: 49%, FL: 43%,vertex, SDP: 4.4cmHer full history and physical was dictated by [] on []. Please see this for details. [] OB Exam Physical Exam Vital signs: Temp Pulse Resp BP Pulse Ox 97.7 F 60 16 106/58 L 97 03/08/23 10:30 03/08/23 11:30 03/08/23 12:49 03/08/23 11:30 03/08/23 11:30
[2023-03-08] MEDS: KETOROLAC 30 MG/ML inj IVP ×2 (14:39→20:29)
[2023-03-09] VITALS (11 sets, daily range): BP systolic 105–135; BP diastolic 69–87; PULSE 71–77; RESP 16–17; TEMP 36.7–36.9; O2SAT 97–98
[2023-03-09] MEDS: KETOROLAC 30 MG/ML inj IVP (02:21)
[2023-03-09 06:51] LABS: Hemoglobin* 10.6 gm/dL (12.0-16.0)
[2023-03-09] MEDS: IBUPROFEN 600 MG TABLET PO (09:10)
[2023-03-09] MEDS: DOCUSATE SODIUM 100 MG CAPSULE PO (09:10)
--- NOTE | 2023-03-09 09:27 | P.DS_ITS ---
DS: Providers Provider Date Seen: 03/09/23 Date of admission: 03/08/23 04:57 Primary care physician: Not a Local Provider Admitting Clinician: Sarah Stewart MD Attending Physician on discharge: Cate Lomeli CNM DS: Diagnosis Discharge Diagnosis (1) care and examination immediately after delivery: Status: Acute (2) Status post delivery: Status: Acute (3) Lactating mother: Status: Acute Exam Narrative: Exam Narrative: GENERAL APPEARANCE:? normal affect, alert, no distress MOOD:? appropriate CHEST:? clear to auscultation HEART:? regular rate and rhythm ABDOMEN:? soft, non-tender the uterine fundus is At Umbilicus, Midline and is appropriate for the stage of recovery. EXTREMITIES:? normal and no edema Incision: Healing well, no surrounding erythema, abnormal induration or discharge Const: Vital Signs, click to edit/add: Vital Signs - 24 hr 03/08/23 09:45 03/08/23 10:00 03/08/23 10:14 Temperature 97.7 F Pulse Rate [Left P ulse Oximeter] 63 61 58 L Respiratory Rate 18 16 18 Blood Pressure [Le ft Arm] 98/68 106/95 H 112/49 L Pulse Oximetry 97 98 [facility] 03/[facility]/23 10:30 03/08/23 10:45 03/08/23 11:00 Temperature 97.7 F Pulse Rate [Left P ulse Oximeter] 60 57 L 60 Respiratory Rate 16 16 18 Blood Pressure [Le ft Arm] 117/61 107/69 121/75 Pulse Oximetry 98 98 97 [facility] 03/08/23 11:15 03/08/23 11:30 03/08/23 12:49 Temperature Pulse Rate [Left P ulse Oximeter] 59 L 60 Respiratory Rate 16 16 16 Blood Pressure [Le ft Arm] 110/72 106/58 L Pulse Oximetry 97 97 [facility] 03/08/23 13:49 03/08/23 14:49 03/08/23 15:49 Temperature Pulse Rate [Left P ulse Oximeter] Respiratory Rate 16 16 18 Blood Pressure [Le ft Arm] Pulse Oximetry Oxygen Delivery Me thod 03/08/23 16:15 03/08/23 16:49 03/08/23 17:49 Temperature 97.9 F Pulse Rate [Left P ulse Oximeter] 97 Respiratory Rate 18 18 16 Blood Pressure [Le ft Arm] 111/72 Pulse Oximetry 97 Oxygen Delivery Me th[facility] Room Air 03/08/23 18:13 03/08/23 19:49 03/08/23 20:00 Temperature 98.0 F Pulse Rate [Left P ulse Oximeter] 62 Respiratory Rate 16 16 16 Blood Pressure [Le ft Arm] 107/69 Pulse Oximetry 97 Oxygen Delivery Me thod Room Air 03/08/23 20:49 03/08/23 21:49 03/08/23 22:49 Temperature Pulse Rate [Left P ulse Oximeter] Respiratory Rate 16 16 16 Blood Pressure [Le ft Arm] Pulse Oximetry Oxygen Delivery Me thod 03/08/23 23:49 03/09/23 00:00 03/09/23 00:49 Temperature 98.0 F Pulse Rate [Left P ulse Oximeter] 77 Respiratory Rate 16 16 17 Blood Pressure [Le ft Arm] 135/87 Pulse Oximetry 97 Oxygen Delivery Me thod Room Air 03/09/23 01:49 03/09/23 02:49 03/09/23 03:49 Temperature Pulse Rate [Left P ulse Oximeter] Respiratory Rate 17 17 17 Blood Pressure [Le ft Arm] Pulse Oximetry Oxygen Delivery Me thod 03/09/23 04:06 03/09/23 04:49 03/09/23 05:49 Temperature 98.4 F Pulse Rate [Left P ulse Oximeter] 71 Respiratory Rate 17 17 17 Blood Pressure [Le ft Arm] 105/69 Pulse Oximetry 97 Oxygen Delivery Me thod Room Air 03/09/23 06:49 03/09/23 07:49 03/09/23 08:31 Temperature 98.2 F Pulse Rate [Left P ulse Oximeter] 71 Respiratory Rate 16 16 16 Blood Pressure [Le ft Arm] 117/76 Pulse Oximetry 97 Oxygen Delivery Me thod Room Air DS: Data Data Completed and Pending Labs on day of discharge: Labs from last 24 hours 03/09/23 06:30 Hgb 10.6 L OB - DS: Summary Hospital Course Hospital Course: Brie is a 27 y.o. at 39 0/7 who was admitted to L & D for repeat section. ?She had an uncomplicated .?The patient feels well. ?The pain is well controlled with current medications. ?She has no new complaints. ?She is breast feeding and reports things are going well.? the patient has done well.? Vitals have been stable.? She has remained afebrile.? Has a good appetite, is tolerating a general diet. ?She is voiding without difficulty.? She is passing gas and has not had a bowel movement.? She is ambulating and denies any dizziness.? Has Small amount of rubra lochia. ?She desires discharge today. She is aware this is earlier than recommended for post-op patients but has had a previous section. She declines a script for oxycodone. Peripartum Data Procedures: Procedures Operation Date: 03/08/23 07:15 Actual Procedure Side Surgeon p Repeat Section Sarah Stewart MD complications: none [place] Infant Gender: Male Infant Discharge Plan: Home Status at Discharge Functional status at discharge: independent ambulation Overall status at discharge: patient is progressing back to baseline Time Spent with Patient Time attestation: Total time spent providing and/or coordinating discharge services: Discharge Plan Discharge Disposition: Home, Self-Care Date of Admission: 03/08/23 04:57 Attending Provider on Discharge: Cate Lomeli Primary Care Provider: Provider,Not a Local Condition: Stable Anticipated Discharge Date/Time: 03/09/23 12:00 Discharge Medications: New acetaminophen 500 mg Tablet 1,000 mg PO Q6H PRN (Reason: Pain) Qty: 0 0RF docusate sodium 100 mg Capsule 100 mg PO DAILY Qty: 90 0RF ibuprofen 600 mg Tablet 600 mg PO Q6H PRN (Reason: Pain) Qty: 60 0RF Continued DHA 200 mg capsule 1 mg PO .QD calcium carbonate [Tums] 200 mg calcium (500 mg) tablet,chewable 200 mg PO BID Discharge Orders: Discharge Order (Routine); Ordered 03/09/23 Ordered By: Cate Lomeli Patient Education: OB Over the Counter Medication Information, OB /Breast Feeding Additional Instructions: Discharge instructions were reviewed with the patient including signs and symptoms of infection and home going medications Lifting Restrictions: 20 pounds for 6 weeks No not submerge incision under water X 2 weeks? Nothing vaginally for 6 weeks: no tampons or intercourse Do not drive while taking narcotic pain medication(s) Off Work or School for 8 weeks 2-week visit: incision check, discuss feeding concerns, review control options and screen for anxiety/depression. 6-week visit for an annual exam. consultation services are available to all mothers and babies for the first year after delivery.? To make an appointment, please call [phone]. Activity Level: Activity as Tolerated Discharge Diet: Regular Follow Up Appointments: [facility] [Provider Group] Forms: [employer] Info Instructions
--- NOTE | 2023-03-10 12:02 | SUR.PHASEI ---
Transfer information completed per Brandee RNC at this time.
== END 2023-03-09 10:45 | disposition home or self-care (01) | DRG 788 ==
PROVIDERS: Admitting Provider Obstetrics & Gynecology; Visit Provider Obstetrics & Gynecology
PROC: 10D00Z1 Extraction of Products of Conception, Low, Open Approach (ICD-10-PCS; CPT 59514; principal; 2023-03-08 07:15)
DX: O34.211 Maternal care for low transverse scar from previous cesarean delivery (principal); Z3A.39 39 weeks gestation of pregnancy; Z37.0 Single live birth; G89.18 Other acute postprocedural pain
CPT/HCPCS: 01961; 36415; 64488; 76942; 85018; 86850; 86900; 86901; A9270; C9290; J1100; J1885; J2274; J2370; J2405; J2590; J3490; J7120